=== PATIENT | female | born 1950 | race Caucasian/White ===

== ENCOUNTER 2019-04-29 08:15 | Outpatient (CLI) | payer MEDICARE, OTHER, SELFPAY ==
--- NOTE | ~2019-04-29 | MM_ITS ---
EXAMINATION: MM screening [facility] BI w adam HISTORY: Screening mammogram TECHNIQUE: Craniocaudal and mediolateral oblique 3-D tomosynthesis images were obtained and synthetic 2-D images were generated. CAD analysis was submitted and interpreted. COMPARISON: 04/16/2018, 04/11/2017, 04/06/2016 BREAST PARENCHYMAL COMPOSITION: The breasts are heterogeneously dense, which may obscure small masses . FINDINGS: There is no evidence of suspicious mass, calcification, or architectural distortion to sugg est malignancy in either breast. There has been no suspicious interval change. IMPRESSION: 1. No mammographic evidence of malignancy. 2. Recommend routine screening mammography in one year. BI-RADS Category 1: Negative Reviewed, dictated and finalized at location A.
== END 2019-04-29 08:16 | disposition home or self-care (01) ==
LOC: ANHIMG 08:17
PROVIDERS: PCP Nurse Practitioner Family; Visit Provider Nurse Practitioner Family
DX: Z12.31 Encounter for screening mammogram for malignant neoplasm of breast (principal)
CPT/HCPCS: 77063; 77067

== ENCOUNTER 2020-07-07 13:33 | Outpatient (CLI) | payer MEDICARE, OTHER, SELFPAY ==
--- NOTE | ~2020-07-07 | MM_ITS ---
EXAMINATION: MM screening [facility] BI w adam HISTORY: Screening TECHNIQUE: Craniocaudal and mediolateral oblique 3-D tomosynthesis images were obtained and synthetic 2-D images were generated. CAD analysis was submitted and interpreted. COMPARISON: Comparison to multiple prior studies sequentially, with oldest reviewed study dated 04/06. BREAST PARENCHYMAL COMPOSITION: The breasts are heterogenously dense, which may obscure small masses. FINDINGS: There is no evidence of suspicious mass, calcification, or architectural distortion to sugg est malignancy in either breast. There has been no suspicious interval change. IMPRESSION: 1. No mammographic evidence of malignancy. 2. Recommend routine screening mammography in one year. BI-RADS Category 1: Negative Reviewed, dictated and finalized at location A.
--- NOTE | ~2020-07-07 | DEXA_ITS ---
Bone Density Report Name: Lorrie Eubanks Age: 69 Sex: Female Ethnicity: White Date of : 1950 Indication: postmenopausal osteoporosis; Referring Provider: Juliette, Angela Scott Study: Bone densitometry was performed. Exam Date: July 07, 2020 Accession number: [id number] Bone Density: Region BMD T-score Z-score Classification AP Spine (L1-L4) 0.648 -3.6 -1.7 Osteoporosis Femoral Neck (Left) 0.502 -3.1 -1.5 Osteoporosis Total Hip (Left) 0.608 -2.7 -1.4 Osteoporosis Total Hip Bilateral Avg 0.598 -2.8 -1.5 Osteoporosis Femoral Neck (Right) 0.511 -3.0 -1.4 Osteoporosis Total Hip (Right) 0.587 -2.9 -1.5 Osteoporosis World Health Organization criteria for BMD impression classify patients as: Normal (T-score at or above -1.0), Osteopenia (T-score between -1.0 and -2.5), or Osteoporosis (T-score at or below -2.5). 10-year Fracture Risk: FRAX not reported because: Some T-score for Spine Total or Hip Total or Femoral Neck at or below -2.5 Previous Exams: Region Exam Age BMD T-score BMD Change BMD Change Date g/cm2 vs Baseline vs Previous AP Spine(L1-L4) 07/07/2020 69 0.648 -3.6 -0.483(-42.7%) -0.086(-11.7%) 04/06/2016 65 0.733 -2.9 -0.398(-35.2%) -0.299(-29.0%) 12/01/2005 54 1.033 -0.1 -0.098(-8.7%)* -0.102(-9.0%)* 10/31/2003 52 1.135 0.8 0.003(0.3%) 0.003(0.3%) 10/29/2001 50 1.131 0.8 Total Hip(Left) 07/07/2020 69 0.608 -2.7 -0.237(-28.1%) -0.064(-9.5%)* 04/06/2016 65 0.672 -2.2 -0.173(-20.5%) -0.135(-16.8%) 12/01/2005 54 0.807 -1.1 -0.038(-4.5%)* -0.050(-5.9%)* 10/31/2003 52 0.858 -0.7 0.013(1.5%) 0.013(1.5%) 10/29/2001 50 0.845 -0.8 Total Hip(Right) 07/07/2020 69 0.587 -2.9 -0.310(-34.6%) -0.070(-10.6%) 04/06/2016 65 0.657 -2.3 -0.241(-26.8%) -0.187(-22.1%) 12/01/2005 54 0.844 -0.8 -0.054(-6.0%)* -0.041(-4.6%)* 10/31/2003 52 0.885 -0.5 -0.013(-1.5%) -0.013(-1.5%) 10/29/2001 50 0.898 -0.4 *Denotes significance at 95% confidence level, LSC for AP Spine = 0.022 g/cm2, LSC for Total Hip = 0.027 g/cm2 Clinical Information Provided by Patient: Patient maximum height was 61 Menopause Age: 53 Onset of menses at age 15 Number of children 1 Impression: The patient has osteoporosis, based on the Total Spine T-score. The BMD for the AP Spine(L1-L4) decreased, changing by -11.7% since the last DXA exam. The BMD for the Total Hip(Left) decreased, changing by -9.5%
== END 2020-07-07 13:34 | disposition home or self-care (01) ==
PROVIDERS: PCP Nurse Practitioner Family; Visit Provider Nurse Practitioner Family
DX: Z12.31 Encounter for screening mammogram for malignant neoplasm of breast (principal); Z78.0 Asymptomatic menopausal state; M81.0 Age-related osteoporosis without current pathological fracture
CPT/HCPCS: 77063; 77067; 77080

== ENCOUNTER 2020-10-19 17:29 | Observation (INO) | payer MEDICARE, OTHER, SELFPAY ==
--- NOTE | ~2020-10-19 | XR_ITS ---
EXAMINATION: XR chest 2V DATE: 10/19/2020 18:58 INDICATION: Weakness. Frequent falls. TECHNIQUE: Frontal and lateral views of the chest were obtained. COMPARISON: Chest 2 views 01/10/2016, CT abdomen and pelvis 10/26/18 FINDINGS: There is mild scarring at the lung apices. No pleural effusion or pneumothorax. The heart s ize is normal. IMPRESSION: 1. Stable mild scarring at the lung apices. Reviewed, dictated and finalized at location A.
--- NOTE | ~2020-10-19 | CT_ITS ---
EXAMINATION: CT brain wo con DATE: 10/19/2020 21:39 INDICATION: Dizziness. Weakness. TECHNIQUE: Computed tomography (CT) of the head was performed without intravenous contrast. The mA wa s adjusted according to patient size. Iterative reconstruction technique was employed. The dose-lengt h product was 605.33 mGy-cm. COMPARISON: Head CT 10/28/2011 FINDINGS: There is no intracranial hemorrhage, acute infarction, or abnormal intracranial mass lesion . There are scattered areas of low attenuation in the cerebral white matter, which is within normal l imits for the patient's age. The ventricles are normal in size. There are likely changes of ocular le ns replacement surgeries. There is mild mucosal thickening in the ethmoid sinuses. The mastoid air ce lls are normal. IMPRESSION: 1. Normal aging brain. Reviewed, dictated and finalized at location A. IMPRESSION: 1. Normal aging brain.
[2020-10-19 17:33] VITALS: BP 143/77; PULSE 56; RESP 20; TEMP 36.9; O2SAT 100
--- NOTE | 2020-10-19 17:37 | ECG_ITS ---
Measurements Intervals Gibson Rate: 53 P: 63 NM: 161 QRS: -5 QRSD: 90 T: -20 QT: 440 QTc: 415 Interpretive Statements SINUS BRADYCARDIA INCOMPLETE RIGHT BUNDLE BRANCH BLOCK BORDERLINE R WAVE PROGRESSION, ANTERIOR LEADS CONSIDER INFERIOR INFARCT, AGE INDETERMINATE BORDERLINE ST-T WAVE ABNORMALITY- ANTEROLAT/INF LEADS BASELINE ARTIFACT- I, II, III, AVR, AVL, AVF, V1-V6 BORDERLINE ECG Electronically Signed On 10-20-2020 12:45:19 CDT by Arjun Nunez D.O.
[2020-10-19 18:10] LABS: Basophils Absolute Auto 0.1 K/mm3 (0.0-0.1); Eosinophils Absolute Auto 0.1 K/mm3 (0-0.3); Eosinophils Percent Auto 0.9 % (0-4.4); Hematocrit 38.9 % (37.0-47.0); Hemoglobin 12.6 g/dL (12.0-15.0); Immature Granulocyte Absolute 0.04 K/mm3 (0.00-0.031); Immature Granulocyte Percent A 0.5 % (0-0.5); Lymphocytes Percent Auto 44.4 % (18.3-44.2); Mean Corpuscular HGB Conc 32.4 g/dl (32-36); Mean Corpuscular Hemoglobin 29.8 pg (26-34); Mean Platelet Volume 9.8 fl (7.4-10.4); Monocytes Absolute Auto 0.6 K/mm3 (0.1-0.6); Neutrophils Absolute Auto 3.7 K/mm3 (1.3-6.7); Neutrophils Percent Auto 46.2 % (45.5-73.1); Platelet Count Result 301 k/mm3 (150-375); Red Blood Count 4.23 M/mm3 (4.2-5.4); Red Cell Distribution Width 13.2 % (11.5-14.5); White Blood Count 7.9 K/mm3 (4.5-10.0)
[2020-10-19 18:17] LABS: Alanine Aminotransferase 25 U/L (4-35); Albumin Level 4.1 g/dL (3.5-5.1); Alkaline Phosphatase 77 U/L (38-126); Anion Gap 4 mmol/L (8-16); Aspartate Amino Transferase 38 U/L (14-36); Bilirubin,Total 0.6 mg/dL (0.2-1.3); Blood Urea Nitrogen 15 mg/dL (7-17); Calcium 9.2 mg/dL (8.4-10.2); Carbon Dioxide 34 mmol/L (22-30); Chloride 102 mmol/L (98-107); Estimated CRCL calculation 38 ml/min; Estimated Glomerular Filt Rate > 60; Glucose 118 mg/dL (65-110); Potassium 3.2 mmol/L (3.4-5.0); Sodium 140 mmol/L (137-145)
--- NOTE | 2020-10-19 21:24 | ED.GENADULT ---
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 states that he found her on the floor today try to get her up to walk but patient was not able to due to her weakness. Patient denies any headache, dizziness, speech or visual disturbance, focal weakness or numbness, chest pain, shortness of breath abdominal pain, nausea, vomiting, diarrhea, fever, chills or urinary symptoms. Patient states that she is seen Dr. Watt in the past due to her tremors and possible Parkinson's. Related Data Home Medications Medication Instructions Recorded Confirmed aspirin [Aspirin Low Dose] 81 mg PO DAILY 12/24/18 12/24/18 buspirone 5 mg PO DAILY 12/24/18 12/24/18 cyanocobalamin (vitamin B-12) 10,000 mcg 12/24/18 [Vitamin B-12] lorazepam [Ativan] 0.5 mg PO DAILY PRN 12/24/18 12/24/18 naltrexone 4.5 mg PO DAILY 12/24/18 12/24/18 thyroid (pork) [Nature-Throid] 1,000 mg PO DAILY 12/24/18 12/24/18 alendronate mg PO 10/19/20 propranolol 10/19/20 Allergies Allergy/AdvReac Type Severity Reaction Status Date / Time cefdinir Allergy Severe gastric Verified 02/29/16 10:23 upset ticagrelor Allergy Severe ABD Verified 02/29/16 10:23 CRAMPING PAIN N/V Apjukhm-Ngn-Trv Reductase Allergy Intermediate Unknown Verified 10/19/20 21:28 Inhibitor codeine AdvReac Mild N/V Verified 02/29/16 10:23 paroxetine AdvReac Mild PASSED OUT Verified 02/29/16 10:23 STATINS Allergy Intermediate muscle Uncoded 12/26/18 10:32 weakness Review of Systems Review of Systems: All systems reviewed & are unremarkable except as noted in HPI and below Constitutional: Constitutional: Denies body ache(s), Denies chills, Denies excessive sweating, Denies fever(s), Denies headache(s), Denies lethargy and Denies weight loss Eyes: Eyes: Denies blurry vision, Denies change in vision and Denies loss of vision ENT: Denies dizziness, Denies ear discharge, Denies headache(s), Denies lip swelling, Denies epistaxis, Denies nasal congestion, Denies neck pain, Denies throat swelling and Denies tongue swelling Cardiovascular: Cardiovascular: Denies chest pain, Denies chest pain at rest, Denies chest pain with activity, Denies diaphoresis, Denies rapid heart rate, Denies edema, Denies irregular heart rhythm, Denies lightheadedness, Denies palpitations, Denies dyspnea and Denies dyspnea on exertion Respiratory: Respiratory: Denies chest congestion, Denies cough, Denies hemoptysis, Denies dyspnea and Denies dyspnea on exertion Gastrointestinal: Gastrointestinal: Denies abdominal pain, Denies melena, Denies hematochezia, Denies diarrhea, Denies nausea, Denies vomiting and Denies hematemesis Musculoskeletal: Musculoskeletal: Denies abnormal gait, Denies deformity, Denies joint swelling, Denies limited range of motion, Denies neck pain and Denies numbness Neurologic: Denies Abnormal speech present, Denies abnormal gait, Denies confusion, Denies dizziness, Denies headache(s), Denies focal weakness, Denies loss of vision, Denies numbness, Denies Other visual disturbances, Denies Sensory deficit (Neuro) and Denies weakness Psychiatric: Psychiatric: Denies confusion, Denies depression, Denies auditory hallucinations, Denies homicidal ideation and Denies suicidal ideation Endocrine: Endocrine: Denies cold intolerance, Denies excessive sweating, Denies fatigue, Denies heat intolerance and Denies palpitations Hematologic/Lymphatic: Hematologic/Lymphatic: Denies easy bleeding and Denies easy bruising Allergic/Immunologic:
[2020-10-19] MEDS: Acetaminophen/HYDROcodone ELIXIR (*CRX) 7.5 MG/15 ML UDC 5 MG PO (22:20)
[2020-10-19 22:22] LABS: Creatine Kinase 93 U/L (30-135)
[2020-10-19 22:23] LABS: Lactic Acid Reflex 0.7 mmol/L (0.7-2.1)
[2020-10-19] MEDS: LACTATED RINGERS 1,000 ML 999 ML IV CONT (22:33)
[2020-10-19 22:35] LABS: Troponin I < 0.012 ng/mL (0.000-0.034)
[2020-10-19 23:26] LABS: Add Urine Microscopic? YES; Appearance Urine Clear (Clear); Bacteria Urine Trace /hpf; Bilirubin Urine Negative (Negative); Blood Urine 1+ (Negative); Color Urine Yellow (Yellow); Glucose Urine UA Negative (Negative); Ketones Urine Trace mg/dL (Negative); Leukocyte Esterase Ur Negative LEU/UL (Negative); Mucus Urine Rare /lpf; Nitrate Urine Negative (Negative); Protein Urine Negative (Negative); RBC Urine 21-50 /hpf (0-2); Specific Grav Ur 1.017 (1.001-1.035); Squamous Epithelial Cell Urine Rare /hpf (Few); Urobilinogen Urine Negative mg/dL (<2.0); WBC Urine 0-3 /hpf
[2020-10-19] MEDS: POTASSIUM CHLORIDE 20 MEQ PACKET (FOR LIQUID) 40 MEQ PO (23:29)
[2020-10-19 23:47] VITALS: BP 142/68; PULSE 56; RESP 14; O2SAT 97
[2020-10-20 01:46] VITALS: BP 143/69; PULSE 53; RESP 16; TEMP 36.6; O2SAT 100; BMI 16.7
--- NOTE | 2020-10-20 01:47 | ADMGEN ---
This patient, Lorrie Eubanks, was admitted to Medical Room 342-01. Patient/family oriented to hospital policies and general routines including ID bracelet, bed and alarms, visiting hours, pain management, procedures, bathroom and other care routines, personal items, smoking policy, room service/diet, and visiting hours. Information on how to activate the Rapid Response Team has been discussed. Patient/Family are encouraged to report perceived risks to care and to ask questions if they do not understand what they are told or what they should do.
[2020-10-20 01:55] VITALS: PULSE 53; RESP 16; O2SAT 100
[2020-10-20] MEDS: LACTATED RINGERS 1,000 ML 125 ML IV CONT (02:59)
[2020-10-20 04:31] VITALS: BP 123/59; PULSE 50; RESP 16; TEMP 36.4; O2SAT 99
--- NOTE | 2020-10-20 05:01 | PM.IMHP ---
H&P: HPI History of Present Illness Date/Time: 10/20/20 05:01 Chief Complaint: Weakness, multiple falls Narrative: 69-year-old female with past medical history of anxiety, chronic pain syndrome, coronary artery disease, and hypothyroidism who presented to the ER from home via private vehicle due to weakness and multiple falls. The patient has had progressive weakness for the last several months. However over the last 3 days her weakness has progressed significantly. She denies any numbness or tingling of her extremities. Has been found the patient on the floor when he came home today. Over the last 2 weeks the patient has had multiple falls with 2 falls today. The patient reports that over the last 4 years she has had a 25 pounds weight loss. She thought she was actually starting to gain weight back as she does have a good appetite. However, her weight today was a few lb lower than her weight couple of weeks ago as outpatient. She denies any nausea vomiting or diarrhea. She has not had any cough or congestion or recent ill symptoms. She does not walk with a walker or cane.but does have chronic footdrop on the right associated with prior back surgery, prior right foot 3 and what sounds like sciatica. 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 She is on chronic naltrexone at home. She denies any increased pain from her baseline. She has not had any nausea vomiting or diarrhea. She has not had any cough or congestion. Dr. Harshad Watt in the past due to her history of footdrop and tremors of her right upper extremity. She denies any orthopnea, paroxysmal nocturnal dyspnea or dyspnea on exertion. She sees a churner through [facility] Dr. Betancourt. Review of Systems Review of Systems: 12 systems were reviewed with pertinent positives and negatives per HPI. Except as documented in the HPI, all other systems were reviewed and are negative. [facility] Past Medical History Medical History (Updated 10/20/20 @ 05:29 by Angeles Baird DO) Anxiety AVM (arteriovenous malformation) of colon B12 deficiency CAD (coronary artery disease) Chronic pain syndrome Hx of adenomatous colonic polyps Hypothyroid TSH 10/19/2020 within normal limits Osteoporosis Surgical History Surgical History (Updated 10/20/20 @ 05:11 by Angeles Baird DO) H/O cardiac catheterization History of colonoscopy with polypectomy History of heart artery stent (~2013) X2 History of repair of right rotator cuff (~2014) History of toe surgery Hx of appendectomy Hx of right inguinal hernia repair Previous back surgery (~2015) Status post cataract extraction of both eyes with insertion of intraocular lens Family History Family History Father Family history of lung cancer Hypertension Mother Over 80 years old Hypertension Social History Social History (Updated 10/20/20 @ 05:10 by Angeles Baird DO) Social History: He lives in [place] with her of 26 years. 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 She has 1 son who is healthy. She is a lifelong nonsmoker and does not drink alcohol or use illicit substances. Code status: Full code Primary care provider: Angela Segovia NP Surrogate decision maker: Smoking status: Never smoker Second hand tobacco smoke exposure: Yes Alcohol intake: never Substance use: never Substance use type: does not use Spiritual care concerns: No Meds Home Medications and Allergies Home Medications Medication Instructions Recorded Confirmed Type aspirin [Aspirin Low Dose] 81 mg PO DAILY 12/24/18 10/20/20 History buspirone 5 mg PO BID 12/24/18 10/20/20 History cyanocobalamin (vitamin B-12) 10,000 mcg PO DAILY 12/24/18 10/20/20 History [Vitamin B-12] lorazepam [Ativan] 0.5 mg PO BID PRN 12/24/18 10/20/20 History n
[2020-10-20 06:25] LABS: Hematocrit 38.3 % (37.0-47.0); Hemoglobin 12.1 g/dL (12.0-15.0); Mean Corpuscular HGB Conc 31.6 g/dl (32-36); Mean Corpuscular Hemoglobin 29.5 pg (26-34); Mean Corpuscular Volume 93.4 fl (80-100); Mean Platelet Volume 10.1 fl (7.4-10.4); Platelet Count Result 257 k/mm3 (150-375); Red Cell Distribution Width 13.1 % (11.5-14.5); White Blood Count 8.2 K/mm3 (4.5-10.0)
[2020-10-20 06:39] LABS: Anion Gap 6 mmol/L (8-16); Blood Urea Nitrogen 12 mg/dL (7-17); Carbon Dioxide 27 mmol/L (22-30); Chloride 102 mmol/L (98-107); Estimated CRCL calculation 43 ml/min; Estimated Glomerular Filt Rate > 60; Glucose 89 mg/dL (65-110); Magnesium 2.1 mg/dL (1.6-2.3); Potassium 3.4 mmol/L (3.4-5.0); Sodium 135 mmol/L (137-145)
[2020-10-20] MEDS: ASPIRIN 81 MG ENTERIC TABLET PO (08:19)
[2020-10-20] MEDS: busPIRone HCL 5 MG TABLET PO ×2 (08:19→16:55)
[2020-10-20] MEDS: POTASSIUM CHLORIDE 20 MEQ TABLET 40 MEQ PO (08:19)
[2020-10-20] MEDS: CYANOCOBALAMIN 1,000 MCG TABLET 1000 MCG PO (08:19)
[2020-10-20] MEDS: LORazepam (*CRX) 0.5 MG TABLET PO (08:22)
--- NOTE | 2020-10-20 11:05 | WPDNEURCNPN ---
Assessment and Plan Additional Plan 1. Tremors most likely Parkinson's disease with action tremor as well 2. Generalized deconditioning with right-sided weakness to be evaluated further 3. Readjust the medications Consult date: 10/20/20 Time Seen: 10:45 HPI: Lorrie Eubanks is a 69 year old female admitted to the hospital for the complaints of recurrent falls along with the generalized weakness in addition to the ongoing history of 1. Anxiety 2. Chronic pain syndrome 3. Coronary artery disease 4. Hypothyroidism and 5. Parkinson's disease patient has had multiple falls over the last couple of weeks in addition to the history of significant weight lost reportedly she does not walk with a walker or cane but has a chronic footdrop on the right side with a history of previous back surgery right foot surgery and also tremors on the right side addition she gave the history of rotator cuff repair in 2014 resulting in the brachial plexus injury she has seen us in the past for the complaints of foot drop. She does have ongoing history O of B12 deficiency chronic pain syndrome hypothyroidism and osteoporosis has also undergone cardiac catheterization and stenting in 2013 in addition to right rotator cuff repair in 2015 back surgery in 2015 and obviously cataract extraction with insertion of the intra ocular lenses . He is not a smoker or drinker medication at the time of admission included BuSpar 5 mg twice a day lorazepam 0.5 mg b.i.d. p.r.n. propanolol 40 mg daily and levothyroxine 0.25 mg daily Review of Systems Review of Systems: All systems reviewed & are unremarkable except as noted in HPI and below PMFSH Past Medical History Medical History Anxiety AVM (arteriovenous malformation) of colon B12 deficiency CAD (coronary artery disease) Chronic pain syndrome Hx of adenomatous colonic polyps Hypothyroid TSH 10/19/2020 within normal limits Osteoporosis Surgical History Surgical History H/O cardiac catheterization History of colonoscopy with polypectomy History of heart artery stent (~2013) X2 History of repair of right rotator cuff (~2014) History of toe surgery Hx of appendectomy Hx of right inguinal hernia repair Previous back surgery (~2015) Status post cataract extraction of both eyes with insertion of intraocular lens Family History Family History Father Family history of lung cancer Hypertension Mother Over 80 years old Hypertension Social History Social History Social History: He lives in [place] with her of 26 years. 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 She has 1 son who is healthy. She is a lifelong nonsmoker and does not drink alcohol or use illicit substances. Code status: Full code Primary care provider: Angela Segovia [employer] Surrogate decision maker: Smoking status: Never smoker Second hand tobacco smoke exposure: Yes Alcohol intake: never Substance use: never Substance use type: does not use Spiritual care concerns: No Meds Home Medications and Allergies Home Medications Medication Instructions Recorded Confirmed Type aspirin [Aspirin Low Dose] 81 mg PO DAILY 12/24/18 10/20/20 History buspirone 5 mg PO BID 12/24/18 10/20/20 History cyanocobalamin (vitamin B-12) 1,000 mcg PO DAILY 12/24/18 10/20/20 History [Vitamin B-12] lorazepam [Ativan] 0.5 mg PO BID PRN 12/24/18 10/20/20 History naltrexone 4.5 mg PO DAILY 12/24/18 10/20/20 History alendronate 70 mg PO WEEKLY 10/19/20 10/20/20 History propranolol 40 mg PO DAILY 10/19/20 10/20/20 History levothyroxine [Synthroid] 25 mcg PO DAILY 10/20/20 10/20/20 History lubiprostone [Amitiza] 8 mcg PO BID PRN 10/20/20 10/20/20 History Allergies Allergy/AdvReac Type Severity Reaction Status Date / Ti
[2020-10-20 11:29] VITALS: BMI 16.7
[2020-10-20 14:00] VITALS: BP 110/55; PULSE 65; RESP 16; TEMP 36.4; O2SAT 100
--- NOTE | 2020-10-20 15:07 | PHAR ---
HOME MED VERIFIED NALTREXONE 4.5MG CAPSULE TAKE 1 DAILY
--- NOTE | 2020-10-20 16:57 | PM.IMPN ---
Progress Note: A&P Assessment and Plan (1) Generalized weakness: Code(s): R53.1 - Weakness Status: Acute (2) Unsteady gait: Code(s): R26.81 - Unsteadiness on feet Status: Acute (3) Acute hypokalemia: Code(s): E87.6 - Hypokalemia Status: Acute (4) Sinus bradycardia: Code(s): R00.1 - Bradycardia, unspecified Status: Acute Additional Plan The patient is having progressive generalized weakness. Underlying neurologic disorder cannot be ruled out. Neurology has been consulted. 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 She has chronic footdrop on the right following surgical procedure and what sounds like sciatica and prior back surgery. The patient's neurologic responses are somewhat slowed and she is generally poor coordination. Await further recommendations from Neurology regarding evaluation. PT and OT have been consulted. Patient is on fall precautions. She has bradycardia noted on exam and is on propranolol. Will hold propranolol as this may be part of the patient's generalized weakness. The patient received oral potassium supplementation in the ER. Will repeat BMP and check a magnesium level in a.m.. Will stop supplemental fluids as the patient has pedal edema bilaterally. 10/20/20 16:57 patient is 71-year-old female presented with complaint of generalized weakness, fatigue and tremor patient is seen by pain management and been prescribed naltrexone, CT scan of the head did not show any acute injury, patient is participating physical therapy, patient was seen by neurologist and diagnosed patient with Parkinson's and started the patient on carbidopa levodopa 25/100, appreciate neurology input will continue to monitor will continue PT OT, patient will benefit going into acute rehab Patient has been admitted as observation status. Subjective Date/time seen: 10/20/20 16:57 patient is 71-year-old female presented with complaint of generalized weakness, fatigue and tremor patient is seen by pain management and been prescribed naltrexone, CT scan of the head did not show any acute injury, patient is participating physical therapy, patient was seen by neurologist and diagnosed patient with Parkinson's and started the patient on carbidopa levodopa 25/100, appreciate neurology input will continue to monitor will continue PT OT, patient will benefit going into acute rehab Review of Systems Review of Systems: All systems reviewed & are unremarkable except as noted in HPI and below Exam Narrative: patient appears under nourished Patient is comfortable, NAD HEENT: eyes are clear and none icteric LUNGS: normal respiratory effort ABD: not distended Lower extremities: no edema SKIN: nonjaundiced Neuro: grossly intact normal speech patient does have tremors. Objective Data Vital Signs Vital Signs: Vital Signs - 24 hr 10/19/20 17:33 10/19/20 23:47 10/20/20 01:46 Temperature 98.4 F 98 F Pulse Rate 56 L 56 L 53 L Respiratory Rate 20 14 16 Blood Pressure 143/77 H 142/68 H 143/69 H Pulse Oximetry 100 97 100 10/20/20 01:55 10/20/20 04:31 10/20/20 14:00 Temperature 97.6 F 97.6 F Pulse Rate 53 L 50 L 65 Respiratory Rate 16 16 16 Blood Pressure 123/59 L 110/55 L Pulse Oximetry 100 99 100 Intake/Output Intake/Output: Intake & Output 10/17/20 10/18/20 10/19/20 10/20/20 23:59 23:59 23:59 23:59 Intake Total 1000 410 Output Total 775 Balance 1000 -365 Meds/Results Medications: Active Medications Generic Name Dose Route Start Last Admin Trade Name Freq PRN Reason Stop Dose Admin Aspirin 81 mg 10/20/20 09:00 10/20/20 08:19 Aspirin 81 Mg Enteric Tablet PO 81 mg DAILY RICHARD Administration Buspirone HCl 5 mg 10/20/20 09:00 10/20/20 16:55 Buspirone Hcl 5 Mg Tablet PO 5 mg BID RICHARD Administration Carbidopa/Levodopa 1 tabl
[2020-10-20 20:29] VITALS: BP 128/52; PULSE 59; RESP 16; TEMP 36.4; O2SAT 97
[2020-10-20] MEDS: CARBIDOPA/LEVODOPA 25/100 MG TABLET 1 TABLET PO (20:31)
[2020-10-21 05:38] VITALS: BP 118/80; PULSE 104; RESP 16; TEMP 36.3; O2SAT 97
[2020-10-21 06:30] LABS: Hematocrit 37.4 % (37.0-47.0); Hemoglobin 11.9 g/dL (12.0-15.0); Mean Corpuscular HGB Conc 31.8 g/dl (32-36); Mean Corpuscular Hemoglobin 29.8 pg (26-34); Mean Corpuscular Volume 93.5 fl (80-100); Mean Platelet Volume 10.1 fl (7.4-10.4); Platelet Count Result 262 k/mm3 (150-375); Red Cell Distribution Width 13.2 % (11.5-14.5); White Blood Count 7.1 K/mm3 (4.5-10.0)
[2020-10-21 06:55] LABS: Anion Gap 9 mmol/L (8-16); Blood Urea Nitrogen 16 mg/dL (7-17); Calcium 9.3 mg/dL (8.4-10.2); Carbon Dioxide 29 mmol/L (22-30); Chloride 100 mmol/L (98-107); Estimated CRCL calculation 43 ml/min; Estimated Glomerular Filt Rate > 60; Glucose 93 mg/dL (65-110); Potassium 3.4 mmol/L (3.4-5.0); Sodium 138 mmol/L (137-145)
[2020-10-21] MEDS: CYANOCOBALAMIN 1,000 MCG TABLET 1000 MCG PO (08:46)
[2020-10-21] MEDS: ASPIRIN 81 MG ENTERIC TABLET PO (08:46)
[2020-10-21] MEDS: busPIRone HCL 5 MG TABLET PO ×2 (08:46→16:34)
[2020-10-21] MEDS: LORazepam (*CRX) 0.5 MG TABLET PO ×2 (08:46→21:07)
[2020-10-21] MEDS: CARBIDOPA/LEVODOPA 25/100 MG TABLET 1 TABLET PO ×3 (08:46→21:07)
[2020-10-21] MEDS: POTASSIUM CHLORIDE 20 MEQ TABLET 40 MEQ PO (10:04)
[2020-10-21 10:28] VITALS: PULSE 63
[2020-10-21] MEDS: PROPRANOLOL HCL 40 MG TABLET PO ×2 (10:28→21:06)
[2020-10-21 14:00] VITALS: BP 93/51; PULSE 81; RESP 18; TEMP 35.8; O2SAT 64
--- NOTE | 2020-10-21 16:29 | WPDNEUROPN ---
Progress Note: A&P Additional Plan patient was advised that she has underlying Parkinson disease she is already showing the signs of improvement on carbidopa levodopa treatment which was increased today to 3 times a day will re-evaluate her. She has a good likely candidate to have the rehab Review of Systems Review of Systems: All systems reviewed & are unremarkable except as noted in HPI and below Exam Narrative: was awake alert cooperative in no obvious acute distress head was normocephalic ear nose throat examination was normal neck was supple heart was regular lungs were clear abdomen is soft neurologically she was awake alert able to follow all the verbal commands appropriately sitting in the chair following the instruction had no evidence of resting tremors had mild tremors on [id number] heart was regular lungs were clear and abdomen was soft neuro examination as mentioned above Objective Data Vital Signs Vital Signs: Vital Signs - 24 hr 10/20/20 20:29 10/21/20 05:38 10/21/20 10:28 Temperature 36.4 C L 36.3 C L Pulse Rate 59 L 104 H 63 Respiratory Rate 16 16 Blood Pressure 128/52 L 118/80 Pulse Oximetry 97 97 10/21/20 14:00 Temperature 35.8 C L Pulse Rate 81 Respiratory Rate 18 Blood Pressure 93/51 L Pulse Oximetry 64 L Intake/Output Intake/Output: Intake & Output 10/18/20 10/19/20 10/20/20 10/21/20 23:59 23:59 23:59 23:59 Intake Total 1000 410 340 Output Total 825 500 Balance 1000 -415 -160 Meds/Results Medications: Active Medications Generic Name Dose Route Start Last Admin Trade Name Minh PRN Reason Stop Dose Admin Aspirin 81 mg 10/20/20 09:00 10/21/20 08:46 Aspirin 81 Mg Enteric Tablet PO 81 mg DAILY RICHARD Administration Buspirone HCl 5 mg 10/20/20 09:00 10/21/20 08:46 Buspirone Hcl 5 Mg Tablet PO 5 mg BID RICHARD Administration Carbidopa/Levodopa 1 tablet 10/21/20 14:00 10/21/20 13:45 Carbidopa/Levodopa 25/100 Mg Tablet PO 1 tablet Q8HR RICHARD Administration Cyanocobalamin 1,000 mcg 10/20/20 09:00 10/21/20 08:46 Cyanocobalamin 1,000 Mcg Tablet PO 1,000 mcg DAILY RICHARD Administration Lorazepam 0.5 mg 10/20/20 05:07 10/21/20 08:46 Lorazepam (*Crx) 0.5 Mg Tablet PO 0.5 mg BID PRN Administration Anxiety Lubiprostone 8 mcg 10/20/20 05:07 Lubiprostone 8 Mcg Capsule PO BID PRN Constipation Propranolol HCl 40 mg 10/21/20 09:00 10/21/20 10:28 Propranolol Hcl 40 Mg Tablet PO 40 mg Q12HR RICHARD Administration Radiology Results: ITS Impressions Chest X-Ray 10/19/20 18:58 IMPRESSION: 1. Stable mild scarring at the lung apices. Head CT 10/19/20 21:41 IMPRESSION: 1. Normal aging brain. Labs Labs: Laboratory Results - last 24 hr 10/21/20 10/21/20 05:41 05:41 WBC 7.1 RBC 4.00 L Hgb 11.9 L Hct 37.4 MCV 93.5 MCH 29.8 MCHC 31.8 L RDW 13.2 Plt Count 262 MPV 10.1 Sodium 138 Potassium 3.4 Chloride 100 Carbon Dioxide 29 Anion Gap 9 BUN 16 Creatinine 0.70 Estim Creat Clear Calc 43 Estimated GFR > 60 Glucose 93 Calcium 9.3 Quality VTE Prophylaxis VTE prophylaxis: mechanical ordered (SCDs)
[2020-10-21 17:00] LABS: EDCOVIDSCREEN Negative (Negative)
--- NOTE | 2020-10-21 18:10 | PM.IMPN ---
Progress Note: A&P Assessment and Plan (1) Generalized weakness: Code(s): R53.1 - Weakness Status: Acute (2) Unsteady gait: Code(s): R26.81 - Unsteadiness on feet Status: Acute (3) Acute hypokalemia: Code(s): E87.6 - Hypokalemia Status: Acute (4) Sinus bradycardia: Code(s): R00.1 - Bradycardia, unspecified Status: Acute Additional Plan The patient is having progressive generalized weakness. Underlying neurologic disorder cannot be ruled out. Neurology has been consulted. 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 She has chronic footdrop on the right following surgical procedure and what sounds like sciatica and prior back surgery. The patient's neurologic responses are somewhat slowed and she is generally poor coordination. Await further recommendations from Neurology regarding evaluation. PT and OT have been consulted. Patient is on fall precautions. She has bradycardia noted on exam and is on propranolol. Will hold propranolol as this may be part of the patient's generalized weakness. The patient received oral potassium supplementation in the ER. Will repeat BMP and check a magnesium level in a.m.. Will stop supplemental fluids as the patient has pedal edema bilaterally. 10/21/20 18:10 10/20 patient is 71-year-old female presented with complaint of generalized weakness, fatigue and tremor patient is seen by pain management and been prescribed naltrexone, CT scan of the head did not show any acute injury, patient is participating physical therapy, patient was seen by neurologist and diagnosed patient with Parkinson's and started the patient on carbidopa levodopa 25/100, appreciate neurology input will continue to monitor will continue PT OT, patient will benefit going into acute rehab 10/21 patient was seen by Neurology and diagnosed her with Parkinson's was started on carbidopa levodopa 25/100, BID, today patient was seen neurologist increase the medication to t.i.d., patient continued to participate in physical therapy, patient has been accepted for acute rehab and will discharge the patient tomorrow. Subjective Date/time seen: 10/21/20 18:10 10/20 patient is 71-year-old female presented with complaint of generalized weakness, fatigue and tremor patient is seen by pain management and been prescribed naltrexone, CT scan of the head did not show any acute injury, patient is participating physical therapy, patient was seen by neurologist and diagnosed patient with Parkinson's and started the patient on carbidopa levodopa 25/100, appreciate neurology input will continue to monitor will continue PT OT, patient will benefit going into acute rehab 10/21 patient was seen by Neurology and diagnosed her with Parkinson's was started on carbidopa levodopa 25/100, BID, today patient was seen neurologist increase the medication to t.i.d., patient continued to participate in physical therapy, patient has been accepted for acute rehab and will discharge the patient tomorrow. Review of Systems Review of Systems: All systems reviewed & are unremarkable except as noted in HPI and below Exam Narrative: patient appears under nourished Patient is comfortable, NAD HEENT: eyes are clear and none icteric LUNGS: normal respiratory effort ABD: not distended Lower extremities: no edema SKIN: nonjaundiced Neuro: grossly intact normal speech patient does have tremors. Objective Data Vital Signs Vital Signs: Vital Signs - 24 hr 10/20/20 20:29 10/21/20 05:38 10/21/20 10:28 Temperature 97.5 F L 97.4 F L Pulse Rate 59 L 104 H 63 Respiratory Rate 16 16 Blood Pressure 128/52 L 118/80 Pulse Oximetry 97 97 10/21/20 14:00 Temperature 96.5 F L Pulse Rate 81 Respiratory Rate 18 Blood Pressure 93/51 L Pulse Oximetry 64 L Intake/Output Intake/Output: Intake & Output 10/18
[2020-10-21 21:06] VITALS: PULSE 62
[2020-10-21 22:00] VITALS: BP 124/82; PULSE 58; RESP 16; TEMP 36.7; O2SAT 100
[2020-10-22] MEDS: CARBIDOPA/LEVODOPA 25/100 MG TABLET 1 TABLET PO (05:29)
[2020-10-22 05:32] VITALS: BP 128/67; PULSE 57; RESP 16; TEMP 37; O2SAT 99
[2020-10-22 06:08] LABS: Hemoglobin 12.3 g/dL (12.0-15.0); Mean Corpuscular HGB Conc 32.4 g/dl (32-36); Mean Corpuscular Hemoglobin 29.6 pg (26-34); Mean Corpuscular Volume 91.6 fl (80-100); Mean Platelet Volume 9.7 fl (7.4-10.4); Platelet Count Result 292 k/mm3 (150-375); Red Blood Count 4.15 M/mm3 (4.2-5.4); Red Cell Distribution Width 13.1 % (11.5-14.5)
[2020-10-22 06:53] LABS: Anion Gap 5 mmol/L (8-16); Blood Urea Nitrogen 16 mg/dL (7-17); Calcium 9.6 mg/dL (8.4-10.2); Carbon Dioxide 31 mmol/L (22-30); Chloride 102 mmol/L (98-107); Estimated CRCL calculation 43 ml/min; Estimated Glomerular Filt Rate > 60; Glucose 107 mg/dL (65-110); Potassium 3.7 mmol/L (3.4-5.0); Sodium 138 mmol/L (137-145)
[2020-10-22 08:00] VITALS: PULSE 54
[2020-10-22] MEDS: ASPIRIN 81 MG ENTERIC TABLET PO (08:00)
[2020-10-22] MEDS: busPIRone HCL 5 MG TABLET PO (08:00)
[2020-10-22] MEDS: PROPRANOLOL HCL 40 MG TABLET PO (08:00)
[2020-10-22] MEDS: CYANOCOBALAMIN 1,000 MCG TABLET 1000 MCG PO (08:00)
[2020-10-22] MEDS: LORazepam (*CRX) 0.5 MG TABLET PO (08:09)
--- NOTE | 2020-10-22 09:13 | PM.DS ---
DS: Admitting Diagnosis Admitting Diagnosis Chief Complaint: Weakness, multiple falls DS: Discharge Diagnosis Discharge Diagnosis (1) Generalized weakness: Code(s): R53.1 - Weakness Status: Acute (2) Unsteady gait: Code(s): R26.81 - Unsteadiness on feet Status: Acute (3) Acute hypokalemia: Code(s): E87.6 - Hypokalemia Status: Inactive (4) Sinus bradycardia: Code(s): R00.1 - Bradycardia, unspecified Status: Acute DS: Summary Hospital Course Reason for hospitalization: Chief Complaint: Weakness, multiple falls Narrative: 69-year-old female with past medical history of anxiety, chronic pain syndrome, coronary artery disease, and hypothyroidism who presented to the ER from home via private vehicle due to weakness and multiple falls. The patient has had progressive weakness for the last several months. However over the last 3 days her weakness has progressed significantly. She denies any numbness or tingling of her extremities. Has been found the patient on the floor when he came home today. Over the last 2 weeks the patient has had multiple falls with 2 falls today. The patient reports that over the last 4 years she has had a 25 pounds weight loss. She thought she was actually starting to gain weight back as she does have a good appetite. However, her weight today was a few lb lower than her weight couple of weeks ago as outpatient. She denies any nausea vomiting or diarrhea. She has not had any cough or congestion or recent ill symptoms. She does not walk with a walker or cane.but does have chronic footdrop on the right associated with prior back surgery, prior right foot 3 and what sounds like sciatica. 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 She is on chronic naltrexone at home. She denies any increased pain from her baseline. She has not had any nausea vomiting or diarrhea. She has not had any cough or congestion. Dr. Harshad Watt in the past due to her history of footdrop and tremors of her right upper extremity. She denies any orthopnea, paroxysmal nocturnal dyspnea or dyspnea on exertion. 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 Hospital Course: patient was discharged on 10/22/2020 The patient is having progressive generalized weakness. Underlying neurologic disorder cannot be ruled out. Neurology has been consulted. 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 She has chronic footdrop on the right following surgical procedure and what sounds like sciatica and prior back surgery. The patient's neurologic responses are somewhat slowed and she is generally poor coordination. Await further recommendations from Neurology regarding evaluation. PT and OT have been consulted. Patient is on fall precautions. She has bradycardia noted on exam and is on propranolol. Will hold propranolol as this may be part of the patient's generalized weakness. The patient received oral potassium supplementation in the ER. Will repeat BMP and check a magnesium level in a.m.. Will stop supplemental fluids as the patient has pedal edema bilaterally. 10/21/20 18:10 10/20 patient is 71-year-old female presented with complaint of generalized weakness, fatigue and tremor patient is seen by pain management and been prescribed naltrexone, CT scan of the head did not show any acute injury, patient is participating physical therapy, patient was seen by neurologist and diagnosed patient with Parkinson's and started the patient on carbidopa levodopa 25/100, appreciate neurology input will continue to monitor will continue PT OT, patient will benefit going into acute rehab 10/21 patient was seen by Neurology and diagnosed her with Parkinson's was started on carbidopa levodopa 25/100, BID, today patient was seen n
== END 2020-10-22 11:30 | disposition short-term general hospital (02) ==
LOC: ANHED 23:55 → ANH3MED 10-20 03:47
PROVIDERS: Emergency Medicine; Internal Medicine; Admitting Provider Internal Medicine; Emergency Provider Emergency Medicine; PCP Nurse Practitioner Family; Visit Provider Family Medicine
DX: R53.1 Weakness (principal); R26.81 Unsteadiness on feet; E87.6 Hypokalemia; R00.1 Bradycardia, unspecified; R29.6 Repeated falls; G20 Parkinson's disease; G25.2 Other specified forms of tremor; I25.10 Atherosclerotic heart disease of native coronary artery without angina pectoris; E03.9 Hypothyroidism, unspecified; M21.371 Foot drop, right foot; E53.8 Deficiency of other specified B group vitamins; G89.4 Chronic pain syndrome; Z95.5 Presence of coronary angioplasty implant and graft; Z79.82 Long term (current) use of aspirin; Z20.822 Contact with and (suspected) exposure to COVID-19
CPT/HCPCS: 36415; 70450; 71046; 80048; 80053; 81001; 82550; 83605; 83735; 84443; 84484; 85025; 85027; 87426; 93005; 96360; 97110; 97116; 97161; 97166; 97535; 99285; A9270; C9803; G0378; J7120

== ENCOUNTER 2020-12-03 11:00 | Outpatient (RCR) | payer MEDICARE, OTHER, SELFPAY ==
--- NOTE | 2020-11-05 10:11 | LSVTBIG ---
Addendum entered by HERMINIA Eisenberg/ALIRIO Lester 11/05/20 14:53: Addendum to initial note. Patient is scheduled to be seen by OT 1-2x/week for 4 weeks. Original Note: OCCUPATIONAL THERAPY INITIAL EVALUATION 11/05/20 Thank you for referring Lorrie Eubanks to [facility] It is recommended that the patient participate in LSVT BIG program, which involves participation in therapy 4 days/week, however due to the patient's limited availability and reliance on transportation she is only able to schedule 2 days/week. She will be seen 1 day/week with OT and 1 day/week with PT for 4 weeks.? Please review, sign, date and return this plan of care DORIS. I agree with and certify that the following plan of care is medically necessary. Referring Physician Date Referring Provider: Yanet De Leon, *LSVT BIG Evaluation Start: 11/05/20 09:01 Therapy Discipline Therapy Discipline Therapy Discipline Occupational Therapy Outpatient Past Medical History Past Medical History Source of Past Medical History Recalled from Previous Visit, Confirmed with Patient/Family Neurological History Hx Parkinson's Disease Yes: seen by Dr. Watt in past for tremors and poss parkinsons Cardiovascular History Hx Cardiac Catheterization Yes Hx Coronary Artery Disease Yes Hx Coronary Stent Yes: X2 Hx Hypertension Yes Hx Other Cardiac Disorders Yes: AVM Respiratory History Hx Respiratory Disorders No Significant History Gastrointestinal History Hx Appendectomy Yes Hx Hernia Yes: right inguinal hernia repair Genitourinary History Hx Genitourinary Disorders No Significant History Musculoskeletal History Hx Back Pain Yes Hx Orthopedic Surgery Yes: RIGHT ROTATOR CUFFX2, RIGHT TOE SURGERY X4 Hx Spinal Surgery Yes Hx Other Musculoskeletal Disorders Yes: chronic pain syndrome Hematological History Hx Hematological Disorders No Significant History Endocrine History Hx Hypothyroidism Yes HEENT History Hx Cataracts Yes: REMOVED Integumentary History Hx Skin Disorders No Significant History Reproductive History Hx Post Menopausal Yes Psychosocial History Hx Anxiety Yes Pain History Has Past Pain Affected Your Daily Life Yes: chronic pain syndrome History of Long-Term Prescription Pain Yes: on naltrexone now Medication Use (Opiates) Anesthesia History Hx Anesthesia Reactions No Significant History Other History Hx Other Medical Conditions Yes: vitamin b12 deficiency Evaluation Information Problem Diagnosis Parkinson's Disease Onset Unknown Subjective Information Patient started noticing Query Text:As Reported By Patient/ tremors in the
--- NOTE | 2020-11-05 11:48 | LSVTBIG ---
PHYSICAL THERAPY EVALUATION AND PLAN OF CARE Thank you for referring Lorrie Eubanks to [facility].? The patient is scheduled to be seen for therapy? 1-2x/week for 4 weeks. Please review, sign, date and return this plan of care DORIS. I agree with and certify that the following plan of care is medically necessary. Referring Physician Date Attending Provider: Yanet De Leon, DO Evaluation Source of Past Medical History Recalled from Previous Visit, Confirmed with Patient/Family Neurological History Hx Parkinson's Disease Yes: seen by dr perez in past for tremors and poss parkinsons Cardiovascular History Hx Cardiac Catheterization Yes Hx Coronary Artery Disease Yes Hx Coronary Stent Yes: X2 Hx Hypertension Yes Hx Other Cardiac Disorders Yes: AVM Respiratory History Hx Respiratory Disorders No Significant History Gastrointestinal History Hx Appendectomy Yes Hx Hernia Yes: right inguinal hernia repair Genitourinary History Hx Genitourinary Disorders No Significant History Musculoskeletal History Hx Back Pain Yes Hx Orthopedic Surgery Yes: RIGHT ROTATOR CUFFX2, RIGHT TOE SURGERY X4 Hx Spinal Surgery Yes Hx Other Musculoskeletal Disorders Yes: chronic pain syndrome Hematological History Hx Hematological Disorders No Significant History Endocrine History Hx Hypothyroidism Yes HEENT History Hx Cataracts Yes: REMOVED Integumentary History Hx Skin Disorders No Significant History Reproductive History Hx Post Menopausal Yes Psychosocial History Hx Anxiety Yes Pain History Has Past Pain Affected Your Daily Life Yes: chronic pain syndrome History of Long-Term Prescription Pain Yes: on naltrexone now Medication Use (Opiates) Anesthesia History Hx Anesthesia Reactions No Significant History Other History Hx Other Medical Conditions Yes: vitamin b12 deficiency Diagnosis Parkinson's Disease Onset Unknown Subjective Information Patient started noticing Query Text:As Reported By Patient/ tremors in the right arm in Family 2014. She was officially diagnosed with Parkinson's about a month ago. Has a rollator that she got when she went to the rehab hospital but states she does not really feel like she needs it unless she goes on a long walk where she might get
--- NOTE | 2020-12-03 10:45 | LSVTBIG ---
OCCUPATIONAL THERAPY DISCHARGE SUMMARY 12/03/20 Lorrie has made excellent progress since beginning therapy a month ago. She has had improved function and safety with ADLs and reports no falls. She has returned to driving and being more confident with lifting pots/pans in the kitchen also. Timed assessments today show marked improvement in gross and fine motor coordination on her right, affected side. It is recommended that she continues to complete the LSVT BIG exercises daily on her own. She is independent with all materials and is in agreement with discharge today. Thank you for referring Lorrie Eubanks to [facility].? Please review, sign, date and return this D/C Note DORIS. I agree with and certify that the following plan of care is medically necessary. Referring Physician Date Referring Provider: Yanet De Leon DO *LSVT BIG Evaluation Start: 11/05/20 09:01 Evaluation Information Problem Diagnosis Parkinson's Disease Onset Unknown Additional Evaluation Detail Patient's initial evaluation was on 11/05/20. She has been seen for 4 OT treatment sessions. Lorrie has been very compliant and cooperative throughout the program. She has been completing a series of repetitive exercises and functional tasks targeting flexibility, challenging her balance, facilitating big movements, and big posture. These exercises are aimed at increased amplitude of movement while addressing the sensorimotor mismatch of PD with the end goal of retraining Lorrie's perception of normal movement. Subjective Information Patient reports everything is Query Text:As Reported By Patient/ easier for her since Family beginning our program. She states that she no longer has difficulties with buttons, stairs, driving, lifting pots/ pans, or transferring into/out of her shower. She reports no falls and she states she is a lot more confident with her balance. Pain Assessment Timing of Pain Assessment Timing of Pain Assessment Assessment Pain Scale Pain Scale Used Numeric (1 - 10) Self Report Pain Assessment Right Knee(s) Reported Pain Level 2 Pain Description Aching Back Reported Pain Level
--- NOTE | 2020-12-03 11:04 | LSVTBIG ---
PHYSICAL THERAPY DISCHARGE NOTE Thank you for referring Lorrie Eubanks to [facility].? Please review, sign, date and return this plan of care DORIS. I agree with and certify that the following plan of care is medically necessary. Referring Physician Date Attending Provider: Yanet D eLeon, DO Discharge Parkinson's Disease Onset Unknown Subjective Information Patient reports everything is Query Text:As Reported By Patient/ easier for her since Family beginning our program. She states that she no longer has difficulties with buttons, stairs, driving, lifting pots/ pans, or transferring into/out of her shower. She reports no falls and she states she is a lot more confident with her Pain Score Pain Score 0: Self Report Balance Assessment Vasquez Balance Assessment Sitting to Standing Independent w/out Hands Unsupported Stance Ability Safely- 2 minutes Sitting Unsupported, Feet on Floor Safely- 2 minutes Standing to Sitting Safely, Minimal Hand Use Transfer Ability Safely, Minimal Hand Use Unsupported Stance- Eyes Closed 3 seconds Unsupported Stance- Feet Together Independent, 1 minute Reaching Forward while Standing Confidently, 10 inches group marketing vp Object From Floor Independent/Safe Look Behind Shoulder - Standing Shifts Weight Unilateral Turning 360 Degrees Turns slowly, but safely Unsupported Stance, Alternating Feet on (I)- 8 Steps in 20 secs Stair Unsupported Tandem Stance Small Step- 30 seconds Unilateral Leg Stance Lifts Leg/Holds > 3 secs VASQUEZ Balance Evaluation Total Score (/56 47 points) Comments 1month ago = 26/56 Time Up Go (TUG) Timed Up and Go Test (TUG) (Seconds) 9 Assistive Devices None Comments 1 month ago = 14seconds 5 Time Sit to Stand Time in Seconds 8.9 5 Time Sit to Stand Comments 1month ago = 15.31seconds Query Text:Normative Data: If Greater Than 15 Seconds, 74% Increase Risk for Recurrent Falls Gait Assessment 6 Minute Walk Total Distance (feet) 1,001 6 Minute Walk Gait Speed Score (feet/ 2.78 second) 6 Minute Gait Comments 1month ago = 557ft (1.54ft/ second) significantly improved gait pattern day with increased arm swing and step length Stair Climbing Assessment Stair Climbing Assessment Stair Climbing Assistive Devices None Maintains Weight Bearing Sta
== END 2020-12-04 10:02 | disposition home or self-care (01) ==
LOC: ANHPT 11:00
PROVIDERS: PCP Nurse Practitioner Family; Visit Provider Physical Medicine & Rehabilitation
DX: G20 Parkinson's disease (principal)
CPT/HCPCS: 97110; 97116; 97163; 97166; 97530

== ENCOUNTER 2021-08-09 07:49 | Outpatient (CLI) | payer MEDICARE, OTHER, SELFPAY ==
--- NOTE | ~2021-08-09 | MM_ITS ---
EXAMINATION: MM screening jace BI w adam HISTORY: Screening mammogram TECHNIQUE: Craniocaudal and mediolateral oblique 3-D tomosynthesis images were obtained and synthetic 2-D images were generated. CAD analysis was submitted and interpreted. COMPARISON: 07/07/2020, 04/29/2019, 04/16/2018 bilateral screening mammogram examinations BREAST PARENCHYMAL COMPOSITION: The breasts are heterogeneously dense, which may obscure small masses . FINDINGS: Stable bilateral intramammary lymph nodes. There is no evidence of suspicious mass, calcifi cation, or architectural distortion to suggest malignancy in either breast. There has been no suspici ous interval change. IMPRESSION: 1. No mammographic evidence of malignancy. 2. Recommend routine screening mammography in one year. BI-RADS Category 2: Benign finding(s). Reviewed, dictated and finalized at location A.
== END 2021-08-09 07:50 | disposition home or self-care (01) ==
LOC: ANHIMG 07:53
PROVIDERS: PCP Nurse Practitioner Family; Visit Provider Nurse Practitioner Family
DX: Z12.31 Encounter for screening mammogram for malignant neoplasm of breast (principal)
CPT/HCPCS: 77063; 77067

== ENCOUNTER → 2022-02-01 13:41 | Outpatient (CLI) | payer MEDICARE, OTHER, SELFPAY ==
--- NOTE | ~2022-02-01 | US_ITS ---
EXAMINATION: US pelvic complete DATE: 02/01/2022 14:15 INDICATION: Abdominal and pelvic pain TECHNIQUE: Multiple transabdominal and endovaginal sonographic images of the pelvis were obtained. COMPARISON: 01/08/2016 FINDINGS: The uterus measures 4.8 x 2.6 x 3.8 cm. The endometrial complex measures 2 mm. The right ov nanci is not visualized however no right adnexal abnormality is seen. The left ovary measures 1.6 x 1.0 x 1.3 cm. There is normal vascular flow in the left ovary. There is no free fluid in the pelvis. No sonographic abnormality is identified in the right lower quadrant to account for the patient's pain. IMPRESSION: 1. No sonographic correlate for the patient's symptoms. Reviewed, dictated and finalized at location A. 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
== END ==
PROVIDERS: PCP Nurse Practitioner Family; Visit Provider Nurse Practitioner Family
DX: R10.9 Unspecified abdominal pain (principal)
CPT/HCPCS: 76856

== ENCOUNTER → 2022-02-07 07:49 | Outpatient (CLI) | payer MEDICARE, OTHER, SELFPAY ==
--- NOTE | ~2022-02-07 | US_ITS ---
EXAMINATION: US abdomen complete DATE: 02/07/2022 08:54 INDICATION: Abdominal pain. TECHNIQUE: Multiple grayscale and Doppler ultrasound images of the abdomen were obtained. COMPARISON: CT abdomen and pelvis 10/26/2018, abdomen ultrasound 08/22/2016 FINDINGS: Abdominal aorta is normal in caliber. Inferior vena cava is normal. The visualized portions of the head and body of the pancreas are normal. The liver is normal without focal lesion. There is normal flow in main portal vein. The gallbladder is contracted. No gallstones or sonographic Bob s ign. The common duct is normal and measures 7 mm. The kidneys are normal in size. There are cysts in left kidney measuring up to 2.1 cm. The spleen is normal in size. IMPRESSION: 1. No etiology for the patient's symptoms. Reviewed, dictated and finalized at location A. 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
== END ==
PROVIDERS: PCP Nurse Practitioner Family; Visit Provider Nurse Practitioner Family
DX: R10.9 Unspecified abdominal pain (principal)
CPT/HCPCS: 76700

== ENCOUNTER → 2022-03-03 08:02 | Outpatient (CLI) | payer MEDICARE, OTHER, SELFPAY ==
--- NOTE | ~2022-03-03 | CT_ITS ---
EXAMINATION: CT abdomen pelvis w con INDICATION: Abdominal pain TECHNIQUE: Computed tomographic images of the abdomen and pelvis were obtained after the administrati on of 100 cc of Omnipaque 350 intravenous contrast. The dose-length product (DLP) was 342.08 mGy-cm. Automated exposure control and iterative reconstruction technique were employed. COMPARISON: 10/26/2018 FINDINGS: Minimal dependent atelectasis is present in the lung bases. The heart size is normal. There is a small sliding hiatal hernia. The liver, spleen,, gallbladder, and adrenal glands are normal. Pa ncreas divisum is noted. The right kidney is unremarkable. Cysts of the left kidney measure up to 1.8 cm There is calcified atherosclerosis of the aorta and many of the other arteries. No pathologically enlarged abdominal or pelvic lymph nodes are identified. A large volume of colonic stool is present. There is no free intraperitoneal gas or evidence of bowel obstruction. There is severe lumbar spondy losis at L5-S1. IMPRESSION: 1. No CT correlate for the patient's symptoms. Reviewed, dictated and finalized at location L. 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
[2022-03-03 08:34] LABS: Estimated Glomerular Filt Rate > 60
== END ==
PROVIDERS: PCP Nurse Practitioner Family; Visit Provider Nurse Practitioner Family
DX: R10.9 Unspecified abdominal pain (principal)
CPT/HCPCS: 74177; Q9967

== ENCOUNTER 2023-05-04 12:09 | Outpatient (CLI) | payer MEDICARE, OTHER, SELFPAY ==
[2023-05-04 13:10] LABS: CRP < 0.5 mg/dL (<1.0)
[2023-05-04 13:14] LABS: Erythrocyte Sedimentation Rate 16 mm/hr (0-20)
[2023-05-06 21:16] LABS: Scleroderma 70 Antibody <1.0
[2023-05-09 02:37] LABS: Tissue Transglutaminase IgG Ab <1.0 U/mL (<15.0)
[2023-05-09 09:51] LABS: Tissue Transglutaminase IgA Ab <1.0 U/mL (<15.0)
== END 2023-05-04 12:10 | disposition home or self-care (01) ==
PROVIDERS: PCP Nurse Practitioner Family; Visit Provider Internal Medicine Gastroenterology
DX: R53.1 Weakness (principal); K52.9 Noninfective gastroenteritis and colitis, unspecified
CPT/HCPCS: 36415; 85652; 86038; 86140; 86235; 86364

== ENCOUNTER 2023-05-11 06:37 | Outpatient (CLI) | payer MEDICARE, OTHER, SELFPAY | END 2023-05-11 06:38 | disposition home or self-care (01) | PROVIDERS: PCP Nurse Practitioner Family; Visit Provider Internal Medicine Gastroenterology | DX: R53.1 Weakness (principal); K52.9 Noninfective gastroenteritis and colitis, unspecified | CPT/HCPCS: 87045; 87177; 87209; 87427; 87449 ==

== ENCOUNTER 2023-05-24 07:00 | Outpatient (NON) | payer MEDICARE, OTHER, SELFPAY | END 2023-05-24 07:01 | disposition home or self-care (01) | PROVIDERS: PCP Nurse Practitioner Family; Visit Provider Internal Medicine Gastroenterology | DX: R10.9 Unspecified abdominal pain (principal) | CPT/HCPCS: 88305 ==

== ENCOUNTER 2023-05-24 08:17 | Day surgery (SDC) | payer MEDICARE, OTHER, SELFPAY ==
[2023-05-08 11:02] VITALS: BMI 18.3
--- NOTE | 2023-05-09 10:48 | SUR.PREOP ---
Spoke to Dr. Simmons regarding Pt's health history and medications. Per Dr. Simmons pt okay to come to [facility] for EGD. Medications to hold and take on day of procedure reviewed with Dr. Simmons (se pre-op instructions text). Pt updated on medication instructions. Pt states no further questions at this time.
[2023-05-24] MEDS: LACTATED RINGERS 1,000 ML 150 ML IV CONT (10:11)
[2023-05-24 10:13] VITALS: BP 171/85; PULSE 58; RESP 18; TEMP 36.4; O2SAT 100; BMI 18.0
--- NOTE | 2023-05-24 10:30 | WPDHPUPDATE1 ---
History and Physical Update Update Date/Time: 05/24/23 10:30 History and Physical has been reviewed, including an updated exam of the patient. There are NO changes in the patient's condition. Risks, benefits, and alternatives have been discussed and questions answered. Patient agrees to proceed with procedure.
--- NOTE | 2023-05-24 10:48 | WPDANESEPPF ---
Anes - Initial Pre Proc Eval Procedure: Operation Date: 05/24/23 11:00 Proposed Procedures p Esophagogastroduodenoscopy - Joe Lyle MD Date/Time: 05/24/23 10:48 Surgeon: Joe Lyle MD Pre Op Diagnosis: Noninfective Gastroenteritis and Colitis, ABD Pain Patient Data Age: 72 Gender: F Height: 1.52 m Weight: 41.9 kg Last Vital Signs Temp 36.4 C L 05/24/23 10:13 Pulse 58 L 05/24/23 10:13 Resp 18 05/24/23 10:13 BP 171/85 H 05/24/23 10:13 Pulse Ox 100 05/24/23 10:13 O2 Del Method Room Air 05/24/23 10:13 Allergies Allergy/AdvReac Type Severity Reaction Status Date / Time ropinirole Allergy Intermediate Rash and Verified 05/24/23 10:10 passing out Hmbgkmz-LAH-FaY Reductase Allergy Intermediate Unknown Verified 05/24/23 10:10 Inhibitor [Ufsommp-Hcr-Qbh Reductase Inhibitor] cefdinir AdvReac Severe gastric Verified 05/24/23 10:10 upset ticagrelor AdvReac Severe ABD Verified 05/24/23 10:10 CRAMPING PAIN N/V codeine AdvReac Mild N/V Verified 05/24/23 10:10 paroxetine AdvReac Mild PASSED OUT Verified 05/24/23 10:10 Home Medications Medication Instructions Recorded Confirmed Type aspirin 81 mg tablet,delayed 81 mg PO DAILY 12/24/18 05/24/23 History release (Destiny Low Dose Aspirin) naltrexone 50 mg tablet 4.5 mg PO DAILY 12/24/18 05/24/23 History levothyroxine 25 mcg tablet 25 mcg PO DAILY 10/20/20 05/24/23 History (Synthroid) propranolol 40 mg tablet 40 mg PO BID@0700,1200 #0 tabs 10/29/20 05/24/23 Rx isosorbide mononitrate 10 mg tablet 10 mg PO BID 12/16/21 05/24/23 History carbidopa 25 mg-levodopa 100 mg See Rx Instructions .Route 12/13/22 05/24/23 Rx tablet .COMPLEX #360 tabs lorazepam 0.5 mg tablet (Ativan) 0.5 mg PO DAILY PRN Anxiety 01/03/23 05/24/23 History Patient hx anesthesia problems: post op nausea/vomiting Family hx anesthesia problems: none Results Review: All pre-operative results and documents have been reviewed as part of the pre-operative evaluation. [facility] Past Medical History Medical History Abdominal pain Anxiety Anxiety AVM (arteriovenous malformation) of colon B12 deficiency CAD (coronary artery disease) Chronic pain Chronic pain syndrome Eosinophilic colitis Hx of adenomatous colonic polyps Hypothyroid TSH 10/19/2020 within normal limits Hypothyroidism Non-cardiac chest pain Osteoporosis Surgical History Surgical History H/O cardiac catheterization History of colonoscopy with polypectomy History of heart artery stent (~2013) X2 History of repair of right rotator cuff (~2014) History of toe surgery Hx of appendectomy Hx of right inguinal hernia repair Previous back surgery (~2015) Status post cataract extraction of both eyes with insertion of intraocular lens Family History Family History Father Family history of lung cancer Hypertension Mother Over 80 years old Hypertension Social History Social History Social History: He lives in [place] with her of 26 years. 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 She has 1 son who is healthy. She is a lifelong nonsmoker and does not drink alcohol or use illicit substances. Code status: Full code Primary care provider: Angela Segovia NP Surrogate decision maker: Smoking status: Never smoker Second hand tobacco smoke exposure: Yes Alcohol intake: never Substance use: never Substance use type: does not use Lack of Transportation: No Lack of Food: Never True Current Housing: I Have Housing Concerned About Future Housing: No Difficulty Paying Gas/Electric Bills: No Difficulty Paying for Meds: No Currently Unemployed: No Education: High School Dipl
[2023-05-24 11:21] VITALS: BP 94/61; PULSE 59; RESP 16; O2SAT 100
[2023-05-24 11:31] VITALS: BP 114/68; PULSE 65; RESP 15; O2SAT 99
--- NOTE | 2023-05-24 11:35 | WPDANESPN ---
Anes - Prog Note Post-Op Date/Time: 05/24/23 11:35 Cardiovascular status: normal Respiratory status: normal Airway patency: baseline Mental status: baseline Post-Op hydration status: normal Vital Signs: Last Vital Signs Temp 36.4 C L 05/24/23 10:13 Pulse 59 L 05/24/23 11:21 Resp 16 05/24/23 11:21 BP 94/61 L 05/24/23 11:21 Pulse Ox 100 05/24/23 11:21 O2 Del Method Room Air 05/24/23 11:21 Pain Score (VAS): 0 I/O: Intake & Output 05/23/23 05/24/23 05/24/23 23:59 07:59 15:59 Intake Total 200 Balance 200 Patient Feedback: Patient satisfied with anesthetic care.
[2023-05-24 11:41] VITALS: BP 123/77; PULSE 56; RESP 15; O2SAT 100
== END 2023-05-24 12:06 | disposition home or self-care (01) ==
PROVIDERS: PCP Nurse Practitioner Family; Visit Provider Internal Medicine Gastroenterology
PROC: 0DJ08ZZ Inspection of Upper Intestinal Tract, Via Natural or Artificial Opening Endoscopic (ICD-10-PCS; CPT 43235; principal; 2023-05-24 11:00)
DX: R10.84 Generalized abdominal pain (principal)
CPT/HCPCS: 43239

== ENCOUNTER 2023-07-05 07:20 | Outpatient (CLI) | payer MEDICARE, OTHER, SELFPAY ==
[2023-07-05 08:14] LABS: Alanine Aminotransferase 6 U/L (6-35); Albumin Level 4.4 g/dL (3.5-5.1); Alkaline Phosphatase 69 U/L (38-126); Anion Gap 5 mmol/L (4-12); Aspartate Amino Transferase 20 U/L (14-36); Bilirubin,Total 0.9 mg/dL (0.2-1.3); Blood Urea Nitrogen 24 mg/dL (7-17); Calcium 9.6 mg/dL (8.4-10.2); Carbon Dioxide 32 mmol/L (22-30); Chloride 101 mmol/L (98-107); Cholesterol 196 mg/dL (0-200); Estimated Glomerular Filt Rate > 60; Glucose 99 mg/dL (65-110); HDL Direct 68 mg/dL; Potassium 4.2 mmol/L (3.4-5.0); Sodium 138 mmol/L (137-145); Triglycerides 113 mg/dL (<150)
[2023-07-05 08:25] LABS: LDL Cholesterol Direct 102 mg/dL
== END 2023-07-05 07:21 | disposition home or self-care (01) ==
PROVIDERS: PCP Nurse Practitioner Family; Visit Provider Nurse Practitioner Family
DX: E03.9 Hypothyroidism, unspecified (principal); F41.9 Anxiety disorder, unspecified; I10 Essential (primary) hypertension; R10.9 Unspecified abdominal pain; G89.29 Other chronic pain
CPT/HCPCS: 36415; 80048; 80061; 80076; 84443

== ENCOUNTER 2023-07-26 15:12 | Outpatient (CLI) | payer MEDICARE, OTHER, SELFPAY ==
[2023-07-26 15:34] LABS: Basophils Absolute Auto 0.1 K/mm3 (0.0-0.1); Basophils Percent Auto 0.8 % (0.2-1.2); Eosinophils Absolute Auto 0.1 K/mm3 (0-0.3); Eosinophils Percent Auto 1.5 % (0-4.4); Hematocrit 38.9 % (37.0-47.0); Hemoglobin 12.6 g/dL (12.0-15.0); Immature Granulocyte Absolute 0.02 K/mm3 (0.00-0.031); Immature Granulocyte Percent A 0.3 % (0-0.5); Lymphocytes Absolute Auto 2.16 K/mm3 (0.9-3.2); Lymphocytes Percent Auto 32.7 % (18.3-44.2); Mean Corpuscular HGB Conc 32.4 g/dl (32-36); Mean Corpuscular Volume 95.6 fl (80-100); Mean Platelet Volume 9.8 fl (7.4-10.4); Monocytes Absolute Auto 0.8 K/mm3 (0.1-0.6); Neutrophils Absolute Auto 3.5 K/mm3 (1.3-6.7); Neutrophils Percent Auto 52.7 % (45.5-73.1); Platelet Count Result 337 k/mm3 (150-375); Red Blood Count 4.07 M/mm3 (4.2-5.4); Red Cell Distribution Width 14.3 % (11.5-14.5); White Blood Count 6.6 K/mm3 (4.5-10.0)
[2023-07-26 15:47] LABS: Albumin Level 4.4 g/dL (3.5-5.1); Alkaline Phosphatase 95 U/L (38-126); Anion Gap 4 mmol/L (4-12); Aspartate Amino Transferase 17 U/L (14-36); Bilirubin,Total 0.9 mg/dL (0.2-1.3); Blood Urea Nitrogen 21 mg/dL (7-17); Calcium 9.5 mg/dL (8.4-10.2); Carbon Dioxide 33 mmol/L (22-30); Chloride 102 mmol/L (98-107); Estimated Glomerular Filt Rate 55; Glucose 109 mg/dL (65-110); Potassium 4.2 mmol/L (3.4-5.0); Sodium 139 mmol/L (137-145)
[2023-07-26 16:15] LABS: Alanine Aminotransferase < 6 U/L (6-35)
== END 2023-07-26 15:13 | disposition home or self-care (01) ==
LOC: ANHLAB 15:15
PROVIDERS: PCP Nurse Practitioner Family; Visit Provider Nurse Practitioner Family
DX: K52.82 Eosinophilic colitis (principal); R10.9 Unspecified abdominal pain; R53.1 Weakness
CPT/HCPCS: 36415; 80053; 85025

== ENCOUNTER 2023-08-07 07:10 | Outpatient (CLI) | payer MEDICARE, OTHER, SELFPAY ==
[2023-08-09 17:33] LABS: Immunoglobulin E 9 kU/L (<OR=114)
== END 2023-08-07 07:11 | disposition home or self-care (01) ==
LOC: ANHLAB 07:18
PROVIDERS: PCP Nurse Practitioner Family; Visit Provider Nurse Practitioner Family
DX: K52.9 Noninfective gastroenteritis and colitis, unspecified (principal); R53.1 Weakness; K52.82 Eosinophilic colitis; R10.9 Unspecified abdominal pain
CPT/HCPCS: 36415; 82785

== ENCOUNTER 2023-09-06 12:39 | Emergency (ER) | payer MEDICARE, OTHER, SELFPAY ==
[2023-09-06 12:42] VITALS: BP 185/81; PULSE 60; RESP 16; TEMP 36.4; O2SAT 98
[2023-09-06 13:55] VITALS: BP 184/96; PULSE 60; RESP 16; O2SAT 100
[2023-09-06 13:58] VITALS: BP 184/96; PULSE 60; RESP 16; O2SAT 100
[2023-09-06 14:15] VITALS: BP 177/82; PULSE 55; RESP 16; O2SAT 98
--- NOTE | 2023-09-06 14:17 | ED.GENADULT ---
HPI - General Adult General Chief complaint: Recheck/Abnormal Lab/Rx Stated complaint: high blood pressure Time Seen by Provider: 09/06/23 13:53 History of Present Illness HPI narrative: 72-year-old female With history of CAD, hypothyroidism, and Parkinson's presents to the emergency room for evaluation of elevated blood pressure. patient states that she was at her GI appointment earlier today she was found have a blood pressure of 180/100. patient denies chest pain, palpitations, shortness of breath, dizziness, lightheadedness, nausea vomiting, headaches. Patient denies any recent changes to medications. Related Data Home Medications Medication Instructions Recorded Confirmed aspirin 81 mg tablet,delayed 81 mg PO DAILY 12/24/18 07/25/23 release (Destiny Low Dose Aspirin) isosorbide mononitrate 10 mg tablet 10 mg PO BID 12/16/21 07/25/23 naltrexone 4.5 mg capsule mg PO DAILY 06/22/23 07/25/23 Allergies Allergy/AdvReac Type Severity Reaction Status Date / Time ropinirole Allergy Intermediate Rash and Verified 09/06/23 11:28 passing out Tfwmbhx-OFR-HrK Reductase Allergy Intermediate Unknown Verified 09/06/23 11:28 Inhibitor [Aiktrkp-Uau-Dmu Reductase Inhibitor] cefdinir AdvReac Severe gastric Verified 09/06/23 11:28 upset ticagrelor AdvReac Severe ABD Verified 09/06/23 11:28 CRAMPING PAIN N/V codeine AdvReac Mild N/V Verified 09/06/23 11:28 paroxetine AdvReac Mild PASSED OUT Verified 09/06/23 11:28 [facility] Past Medical History Medical History Abdominal pain Anxiety Anxiety AVM (arteriovenous malformation) of colon B12 deficiency CAD (coronary artery disease) Chronic pain Chronic pain syndrome Eosinophilic colitis Hx of adenomatous colonic polyps Hypothyroid TSH 10/19/2020 within normal limits Hypothyroidism Non-cardiac chest pain Osteoporosis Surgical History Surgical History H/O cardiac catheterization History of colonoscopy with polypectomy History of heart artery stent (~2013) X2 History of repair of right rotator cuff (~2014) History of toe surgery Hx of appendectomy Hx of right inguinal hernia repair Previous back surgery (~2016) Status post cataract extraction of both eyes with insertion of intraocular lens Family History Family History Father Family history of lung cancer Hypertension Mother Over 80 years old Hypertension Social History Social History Social History: He lives in [place] with her of 26 years. 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 She has 1 son who is healthy. She is a lifelong nonsmoker and does not drink alcohol or use illicit substances. Code status: Full code Primary care provider: Angela Segovia NP Surrogate decision maker: Smoking status: Never smoker Second hand tobacco smoke exposure: Yes Alcohol intake: never Substance use: never Substance use type: does not use Do You Feel Safe in your Home?: Yes Lack of Transportation: No Lack of Food: Never True Current Housing: I Have Housing Concerned About Future Housing: No Difficulty Paying Gas/Electric Bills: No Difficulty Paying for Meds: No Currently Unemployed: No Education: High School Diploma/GED Difficulty w/ Childcare or Family Care: No Living arrangements: alone Spiritual care concerns: No Exam Narrative: GENERAL: Well-appearing, well-nourished, no physical limitations, and in no acute distress. HEAD: Normocephalic, atraumatic. EYES: Conjunctivae normal, PERRLA and EOMI. CHEST: Clear to auscultation. No respiratory distress. No wheezes rales or rhonchi. HEART: Regular rate and rhythm. No murmur heard. Normal peripheral pulses. ABDOMEN: Soft, nontender, non
[2023-09-06 14:19] LABS: Basophils Absolute Auto 0.1 K/mm3 (0.0-0.1); Basophils Percent Auto 0.9 % (0.2-1.2); Eosinophils Absolute Auto 0.1 K/mm3 (0-0.3); Eosinophils Percent Auto 0.9 % (0-4.4); Hematocrit 37.7 % (37.0-47.0); Hemoglobin 11.9 g/dL (12.0-15.0); Immature Granulocyte Absolute 0.03 K/mm3 (0.00-0.031); Immature Granulocyte Percent A 0.4 % (0-0.5); Lymphocytes Absolute Auto 2.18 K/mm3 (0.9-3.2); Lymphocytes Percent Auto 28.5 % (18.3-44.2); Mean Corpuscular HGB Conc 31.6 g/dl (32-36); Mean Corpuscular Hemoglobin 31.2 pg (26-34); Mean Corpuscular Volume 98.7 fl (80-100); Mean Platelet Volume 10.2 fl (7.4-10.4); Monocytes Absolute Auto 0.8 K/mm3 (0.1-0.6); Monocytes Percent Auto 9.9 % (2.6-8.5); Neutrophils Absolute Auto 4.5 K/mm3 (1.3-6.7); Neutrophils Percent Auto 59.4 % (45.5-73.1); Platelet Count Result 337 k/mm3 (150-375); Red Blood Count 3.82 M/mm3 (4.2-5.4); Red Cell Distribution Width 13.2 % (11.5-14.5); White Blood Count 7.6 K/mm3 (4.5-10.0)
[2023-09-06 14:29] LABS: Alanine Aminotransferase 9 U/L (6-35); Albumin Level 4.6 g/dL (3.5-5.1); Alkaline Phosphatase 76 U/L (38-126); Anion Gap 9 mmol/L (4-12); Aspartate Amino Transferase 24 U/L (14-36); Bilirubin,Total 1.2 mg/dL (0.2-1.3); Blood Urea Nitrogen 14 mg/dL (7-17); Calcium 9.8 mg/dL (8.4-10.2); Carbon Dioxide 32 mmol/L (22-30); Chloride 100 mmol/L (98-107); Estimated CRCL calculation 39 ml/min; Estimated Glomerular Filt Rate > 60; Glucose 116 mg/dL (65-110); Potassium 3.8 mmol/L (3.4-5.0); Sodium 141 mmol/L (137-145)
[2023-09-06] MEDS: CARBIDOPA/LEVODOPA 25/100 MG TABLET 2 TABLET PO (14:50)
[2023-09-06 15:10] VITALS: BP 167/88; PULSE 58; RESP 14; O2SAT 97
== END 2023-09-06 15:12 | disposition home or self-care (01) ==
PROVIDERS: Emergency Provider Nurse Practitioner Family; PCP Nurse Practitioner Family
DX: R03.0 Elevated blood-pressure reading, without diagnosis of hypertension (principal); G20.A1 Parkinson's disease without dyskinesia, without mention of fluctuations; I25.10 Atherosclerotic heart disease of native coronary artery without angina pectoris; E03.9 Hypothyroidism, unspecified; E53.8 Deficiency of other specified B group vitamins; K55.20 Angiodysplasia of colon without hemorrhage; M81.0 Age-related osteoporosis without current pathological fracture; F41.9 Anxiety disorder, unspecified; Z95.5 Presence of coronary angioplasty implant and graft; Z86.010 Personal history of colon polyps; Z96.1 Presence of intraocular lens; Z98.42 Cataract extraction status, left eye; Z98.41 Cataract extraction status, right eye; Z79.82 Long term (current) use of aspirin; Z79.899 Other long term (current) drug therapy
CPT/HCPCS: 36415; 80053; 85025; 99283; A9270

== ENCOUNTER 2023-09-14 12:14 | Emergency (ER) | payer MEDICARE, OTHER, SELFPAY ==
[2023-09-14] VITALS (13 sets, daily range): BP systolic 126–151; BP diastolic 70–85; PULSE 57–72; RESP 19–30; TEMP 36.7; O2SAT 94–99
--- NOTE | ~2023-09-14 | CT_ITS ---
EXAMINATION: CT abdomen pelvis w con DATE: 09/14/2023 14:33 INDICATION: Suprapubic right flank pain TECHNIQUE: Computed tomography (CT) of the abdomen and pelvis was performed with 100 mL Omnipaque-350 intravenous contrast. Automated exposure control and iterative reconstruction technique were employe d. The dose-length product was 209.39 mGy-cm. COMPARISON: 03/03/2022 FINDINGS: Mild dependent atelectasis in the bilateral lower lobes. Heart size is normal. Atherosclerotic sanchez ry artery calcifications versus stenting along the right coronary artery. No pericardial or pleural e ffusion. Liver, gallbladder, spleen, bilateral adrenal glands and right kidney are normal. Couple flu id to recent left renal cysts the larger measuring 2.2 cm. 8 mm cystic lesion at the head of the panc reas. Pancreas divisum with dilation of the main pancreatic at the tail of pancreas weren't measures up to 3 mm. There is also dilation of the pancreatic duct draining the uncinate process which measure s up to 5 mm near its confluence with the common bile duct. There is also mild dilation of the 9 mm a t the common hepatic duct and 7 mm the common bile duct. Unchanged pattern of phleboliths in the pelv is including at the bilateral ovaries. No evident urolithiasis. Bladder, and uterus are normal. Baumann es of likely prior appendectomy with multiple surgical clips along the tip the cecum. No bowel obstru ction. No free intraperitoneal gas or fluid. No pathologically enlarged abdominal or pelvic lymphaden opathy. Severe spondylosis at the lumbosacral junction. Mild spondylosis of the more cephalad thoraco lumbar spine with mild dextrocurvature. IMPRESSION: 1. Pancreas to be some and increasing mild dilation of the common bile duct and pancreatic ducts. Cor relate with lipase levels and liver function tests. Could consider further evaluation with MRCP as cl inically indicated. 2. Nonspecific 8 mm cystic lesion at the head of the pancreas. Recommend one-year follow-up pre and p ostcontrast MRI. Reviewed, dictated and finalized at location A. IMPRESSION: 1. Pancreas to be some and increasing mild dilation of the common bile duct and pancreatic ducts. Correlate with lipase levels and liver function tests. Could consider further evaluation with MRCP as clinically indicated. 2. Nonspecific 8 mm cystic lesion at the head of the pancreas. Recommend one-ye ar follow-up pre and postcontrast MRI.
--- NOTE | 2023-09-14 12:28 | ED.GENADULT ---
HPI - General Adult General Chief complaint: Recheck/Abnormal Lab/Rx Stated complaint: HTN, UTI Time Seen by Provider: 09/14/23 12:21 Source: patient Mode of arrival: ambulatory Limitations: no limitations History of Present Illness HPI narrative: This is a 72-year-old female who presents to the ED for chief complaint suprapubic pressure, dysuria ongoing intermittently for the past several months. States that she has been on a few different antibiotics this year for UTIs. She is also concerned over her blood pressure being very elevated at home. States he was the 180s. Denies fevers, chills, nausea vomiting, hematuria, chest pain, headache, numbness, weakness. Related Data Home Medications Medication Instructions Recorded Confirmed aspirin 81 mg tablet,delayed 81 mg PO DAILY 12/24/18 09/07/23 release (Destiny Low Dose Aspirin) isosorbide mononitrate 10 mg tablet 10 mg PO BID 12/16/21 09/07/23 naltrexone 4.5 mg capsule mg PO DAILY 06/22/23 09/07/23 Allergies Allergy/AdvReac Type Severity Reaction Status Date / Time ropinirole Allergy Intermediate Rash and Verified 09/14/23 12:27 passing out Rvnrogt-VMX-RfJ Reductase Allergy Intermediate Unknown Verified 09/14/23 12:27 Inhibitor [Knbjuph-Etf-Jqn Reductase Inhibitor] cefdinir AdvReac Severe gastric Verified 09/14/23 12:27 upset ticagrelor AdvReac Severe ABD Verified 09/14/23 12:27 CRAMPING PAIN N/V codeine AdvReac Mild N/V Verified 09/14/23 12:27 paroxetine AdvReac Mild PASSED OUT Verified 09/14/23 12:27 Review of Systems Review of Systems: All systems as dictated in HPI [facility] Past Medical History Medical History Abdominal pain Anxiety Anxiety AVM (arteriovenous malformation) of colon B12 deficiency CAD (coronary artery disease) Chronic pain Chronic pain syndrome Eosinophilic colitis Hx of adenomatous colonic polyps Hypothyroid TSH 10/19/2020 within normal limits Hypothyroidism Non-cardiac chest pain Osteoporosis Surgical History Surgical History H/O cardiac catheterization History of colonoscopy with polypectomy History of heart artery stent (~2013) X2 History of repair of right rotator cuff (~2014) History of toe surgery Hx of appendectomy Hx of right inguinal hernia repair Previous back surgery (~2015) Status post cataract extraction of both eyes with insertion of intraocular lens Family History Family History Father Family history of lung cancer Hypertension Mother Over 80 years old Hypertension Social History Social History Social History: He lives in [place] with her of 26 years. 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 She has 1 son who is healthy. She is a lifelong nonsmoker and does not drink alcohol or use illicit substances. Code status: Full code Primary care provider: Angela Segovia NP Surrogate decision maker: Smoking status: Never smoker Second hand tobacco smoke exposure: Yes Alcohol intake: never Substance use: never Substance use type: does not use Do You Feel Safe in your Home?: Yes Lack of Transportation: No Lack of Food: Never True Current Housing: I Have Housing Concerned About Future Housing: No Difficulty Paying Gas/Electric Bills: No Difficulty Paying for Meds: No Currently Unemployed: No Education: High School Diploma/GED Difficulty w/ Childcare or Family Care: No Living arrangements: alone Spiritual care concerns: No Exam Narrative: GENERAL: Well-appearing, well-nourished, and in no acute distress. HEAD: Normocephalic, atraumatic. EYES: PERRLA and EOMI. ENT: Nares clear, no rhinorrhea or epistaxis. Mucous membranes moist. Oropharynx without tonsillar h
[2023-09-14 13:30] LABS: Basophils Absolute Auto 0.1 K/mm3 (0.0-0.1); Basophils Percent Auto 1.1 % (0.2-1.2); Eosinophils Absolute Auto 0.1 K/mm3 (0-0.3); Eosinophils Percent Auto 1.1 % (0-4.4); Hematocrit 33.3 % (37.0-47.0); Hemoglobin 10.5 g/dL (12.0-15.0); Immature Granulocyte Absolute 0.03 K/mm3 (0.00-0.031); Immature Granulocyte Percent A 0.4 % (0-0.5); Lymphocytes Absolute Auto 1.87 K/mm3 (0.9-3.2); Lymphocytes Percent Auto 23.4 % (18.3-44.2); Mean Corpuscular HGB Conc 31.5 g/dl (32-36); Mean Corpuscular Hemoglobin 31.6 pg (26-34); Mean Corpuscular Volume 100.3 fl (80-100); Mean Platelet Volume 10.5 fl (7.4-10.4); Monocytes Absolute Auto 0.8 K/mm3 (0.1-0.6); Monocytes Percent Auto 9.6 % (2.6-8.5); Neutrophils Absolute Auto 5.1 K/mm3 (1.3-6.7); Neutrophils Percent Auto 64.4 % (45.5-73.1); Platelet Count Result 288 k/mm3 (150-375); Red Blood Count 3.32 M/mm3 (4.2-5.4); Red Cell Distribution Width 12.8 % (11.5-14.5)
[2023-09-14] MEDS: ONDANSETRON INJ 4 MG/2 ML VIAL IV PUSH (13:32)
[2023-09-14] MEDS: MORPHINE SULFATE (*CRX) 4 MG/ML INJ IV PUSH (13:34)
[2023-09-14 13:40] LABS: Appearance Urine Turbid (Clear); Bacteria Urine None Seen /hpf; Bilirubin Urine 1+ (Negative); Blood Urine Negative (Negative); Color Urine Orange (Yellow); Glucose Urine UA Negative (Negative); Ketones Urine Negative (Negative); Leukocyte Esterase Ur 1+ LEU/UL (Negative); Need Manual Microscopic Reviewed; Nitrate Urine Positive (Negative); Non Pathogenic Casts 0-2; Protein Urine Trace mg/dL (Negative); RBC Urine 0-2 /hpf (0-2); Specific Grav Ur 1.016 (1.001-1.035); Squamous Epithelial Cell Urine None Seen /hpf (Few); WBC Urine 0-5 /hpf (0-3)
[2023-09-14 13:41] LABS: Add Urine Microscopic? YES; Amorphous Sediment Urine Few
--- NOTE | 2023-09-14 13:56 | PC.NURSE ---
patient has been taking AZO for UTI symptoms
[2023-09-14 14:08] LABS: Albumin Level 4.2 g/dL (3.5-5.1); Alkaline Phosphatase 90 U/L (38-126); Anion Gap 7 mmol/L (4-12); Aspartate Amino Transferase 22 U/L (14-36); Bilirubin,Total 0.7 mg/dL (0.2-1.3); Blood Urea Nitrogen 20 mg/dL (7-17); Calcium 9.3 mg/dL (8.4-10.2); Carbon Dioxide 34 mmol/L (22-30); Chloride 98 mmol/L (98-107); Estimated CRCL calculation 39 ml/min; Estimated Glomerular Filt Rate > 60; Glucose 97 mg/dL (65-110); Lipase 196 U/L (23-300); Potassium 4.3 mmol/L (3.4-5.0); Sodium 139 mmol/L (137-145)
[2023-09-14 14:40] LABS: Alanine Aminotransferase < 6 U/L (6-35)
[2023-09-14] MEDS: KETOROLAC 15 MG/ML VIAL (*BKC) IV PUSH (15:48)
[2023-09-14] MEDS: LORazepam (*CRX) 0.5 MG TABLET PO (16:16)
--- NOTE | 2023-09-14 16:16 | PC.NURSE ---
patient took a dose of AZO that she had with her. hold pyridium at this time per Dr. Mcdaniel. advised patient to not take any more medications without asking. patient verbalized understanding
== END 2023-09-14 17:28 | disposition home or self-care (01) ==
PROVIDERS: Emergency Provider Physician Assistant; PCP Nurse Practitioner Family
DX: N39.0 Urinary tract infection, site not specified (principal); I25.10 Atherosclerotic heart disease of native coronary artery without angina pectoris; E03.9 Hypothyroidism, unspecified
CPT/HCPCS: 36415; 74177; 80053; 81001; 83690; 85025; 96365; 96375; 99284; A9270; J0696; J1885; J2270; J2405; Q9967

== ENCOUNTER 2023-10-16 11:10 | Inpatient (IN) | payer MEDICARE, OTHER, SELFPAY ==
--- NOTE | ~2023-10-16 | MR_ITS ---
EXAMINATION: MR MRCP wo/w con/w 3D wo ind DATE: 10/17/2023 10:09 INDICATION: Dilated pancreatic duct. Abdominal pain. TECHNIQUE: Magnetic resonance imaging (MRI) of the abdomen was performed without and with 9 mL MultiH ance intravenous contrast. Sequences included coronal T2-weighted FS FSE, coronal T2-weighted FSE, ax ial T1-weighted LAVA, coronal FS FIESTA, axial dual-echo T1-weighted SPGR, coronal lava-FLEX, sagitta l T2-weighted FSE, axial T2-weighted FSE, and axial DWI. Thick-slab T2-weighted FSE images were obtai lu for magnetic resonance cholangiopancreatography (MRCP). Maximum intensity projection 3-D reconstr uctions of the volumetric data were created by the technologist. Postcontrast sequences included shubham nal LAVA-flex and time course of axial T1-weighted LAVA. COMPARISON: MRCP 06/30/2016, CT abdomen and pelvis 10/16/2023 FINDINGS: ABDOMEN MRI: The liver is normal. There is sludge in the gallbladder which is normal in size. The spl een is normal. There is a 7 mm cyst in the neck of the pancreas that communicates with the main pancr eatic duct. The adrenal glands and right kidney are normal. There is a 2.1 cm hemorrhagic cyst in lef t kidney. There are cysts in left kidney measuring up to 7 mm. There are no dilated loops of bowel. ABDOMEN MRCP: The common duct is mildly dilated to 9 mm. No choledocholithiasis. The pancreatic duct measures up to 4 mm, which is normal. IMPRESSION: 1. Chronic mild dilatation of the common duct. No choledocholithiasis. 2. Low-risk 7 mm cyst in the pancreas. The differential diagnosis includes pseudocyst, intraductal pa pillary mucinous neoplasm (IPMN), mucinous cystic neoplasm (MCN), serous cystadenoma, and neuroendocr ine tumor. Abdomen MRI without and with contrast is recommended in 2 years. Reviewed, dictated and finalized at location A. IMPRESSION: 1. Chronic mild dilatation of the common duct. No choledocholithiasis. 2. Low-risk 7 mm cyst in the pancreas. The differential diagnosis includes pseu docyst, intraductal papillary mucinous neoplasm (IPMN), mucinous cystic neoplas m (MCN), serous cystadenoma, and neuroendocrine tumor. Abdomen MRI without and with contrast is recommended in 2 years.
--- NOTE | ~2023-10-16 | CT_ITS ---
EXAMINATION: CT abdomen pelvis w con DATE: 10/16/2023 19:53 INDICATION: Abdominal pain. TECHNIQUE: Computed tomography (CT) of the abdomen and pelvis was performed with 100 mL Omnipaque 350 intravenous contrast. Automated exposure control and iterative reconstruction technique were employe d. The dose-length product was 153.48 mGy-cm. COMPARISON: CT abdomen and pelvis 09/14/2023, 03/03/22 FINDINGS: The visualized portions of lung bases demonstrate minimal atelectasis. No pleural effusion. The heart size is normal. No pericardial effusion. The liver, gallbladder, spleen, adrenal glands, a nd right kidney are normal. There are cysts in left kidney measuring up to 2.4 cm. There is incomplet e pancreas divisum. There is an 8 mm cyst in the pancreas. There is calcified atherosclerosis of the aorta and many of the other arteries. There are no dilated loops of bowel. The appendix is not visual ized. There are no pathologically enlarged lymph nodes. There is no free intraperitoneal fluid. There is severe lower lumbar spondylosis. IMPRESSION: 1. No etiology for the patient's symptoms. 2. 8 mm pancreatic cyst. The differential diagnosis includes pseudocyst, intraductal papillary mucino us neoplasm (IPMN), mucinous cystic neoplasm (MCN), serous cystadenoma, and neuroendocrine tumor. Abd omen MRI without and with contrast is recommended in 2 years. Reviewed, dictated and finalized at location A. IMPRESSION: 1. No etiology for the patient's symptoms. 2. 8 mm pancreatic cyst. The differential diagnosis includes pseudocyst, intrad uctal papillary mucinous neoplasm (IPMN), mucinous cystic neoplasm (MCN), serou s cystadenoma, and neuroendocrine tumor. Abdomen MRI without and with contrast is recommended in 2 years.
[2023-10-16 11:12] VITALS: BP 145/95; PULSE 60; RESP 16; TEMP 36.6; O2SAT 95
--- NOTE | 2023-10-16 13:55 | ED.ABDPAIN ---
HPI - Abdominal Pain General Chief Complaint: Abdominal Pain <Camille Chatterjee PA-C - Last Filed: 10/17/23 09:23> Stated Complaint: abd pain <Camille Chatterjee PA-C - Last Filed: 10/17/23 09:23> Time Seen by Provider: 10/16/23 13:55 <Camille Chatterjee PA-C - Last Filed: 10/17/23 09:23> Focused HPI: This is a 72 year old female that presents to the ER for abdominal pain. Ongoing over the last several months. Reports she has had scopes and scans to work up this pain. Has had a lot of antibiotics for UTIs. Reports some nausea and dysuria. She sees Dr. Judd for this. Denies fever, vomiting, or diarrhea. GENERAL: Well-appearing, well-nourished, and in no acute distress. HEAD: Normocephalic, atraumatic. CHEST: Clear to auscultation. ?No respiratory distress. HEART: Regular rate and rhythm.? NEURO: ?Alert and oriented x3. Patient screened in triage and initial orders placed.? ?Additional care and disposition to be based upon?diagnostic testing and treatment. <Camille Chatterjee PA-C - Last Filed: 10/17/23 09:23> History of Present Illness HPI narrative: 72-year-old with a history of Parkinson head with the complaints of abdominal pain which has been ongoing for the past few months. She has been seen in the ER for this several times. She also states that she had a EGD and colonoscopy done by Dr. Judd but still continues to have pain. She denies any nausea and vomiting. No history of fever or chills. Patient states that she has been on antibiotic for urinary tract infection. Moment she finished her antibiotics to started to have pain. Upon chart review CT scan done the in August showed dilated pancreatic biliary duct suggestive of MRCP. Patient had no MRI or MRCP done on outpatient basis. <Jet Epperson MD - Last Filed: 10/16/23 17:14> MD elicited complaint: abdominal pain <Jet Epperson MD - Last Filed: 10/16/23 17:14> Pertinent past history: none <Jet Epperson MD - Last Filed: 10/16/23 17:14> Onset (ago): month(s) <Jet Epperson MD - Last Filed: 10/16/23 17:14> Pain Consistency: constant <Jte Epperson MD - Last Filed: 10/16/23 17:14> Location: diffuse <Jet Epperson MD - Last Filed: 10/16/23 17:14> Severity: moderate <Jet Epperson MD - Last Filed: 10/16/23 17:14> Quality: aching <Jet Epperson MD - Last Filed: 10/16/23 17:14> Radiation: none <Jet Epperson MD - Last Filed: 10/16/23 17:14> Migration to: no migration <Jet Epperson MD - Last Filed: 10/16/23 17:14> Exacerbating factors: nothing <Jet Epperson MD - Last Filed: 10/16/23 17:14> Relieving factors: nothing <Jet Epperson MD - Last Filed: 10/16/23 17:14> Related Data Home Medications: Home Medications Medication Instructions Recorded Confirmed aspirin 81 mg tablet,delayed 81 mg PO DAILY 12/24/18 10/16/23 release (Destiny Low Dose Aspirin) isosorbide mononitrate 10 mg tablet 10 mg PO BID 12/16/21 10/16/23 naltrexone 4.5 mg capsule 4.5 mg PO DAILY 06/22/23 10/16/23 carbidopa 25 mg-levodopa 100 mg 2 tablet PO QID 10/16/23 10/16/23 tablet <Camille Chatterjee PA-C - Last Filed: 10/17/23 09:23> Allergies/Adverse Reactions: Allergies Allergy/AdvReac Type Severity Reaction Status Date / Time ropinirole Allergy Intermediate Rash and Verified 10/16/23 19:19 passing out Uhedivi-RCW-BpM Reductase Allergy Intermediate Unknown Verified 10/16/23 19:19 Inhibitor [Kxpehsu-Zsg-Pzl Reductase Inhibitor] cefdinir AdvReac Severe gastric Verified 10/16/23 19:19 upset ticagrelor AdvReac Severe ABD Verified 10/16/23 19:19 CRAMPING PAIN N/V codeine AdvReac Mild N/V Verified 10/16/23 19:19 paroxetine AdvReac Mild PASSED OUT Verified 10/16/23 19:19 <Camille Chatterjee PA-C - Last Filed: 10/17/23 09:23> Review of Systems Review of Systems: All systems reviewed & are unremarkable except as noted in HPI and
[2023-10-16 14:13] LABS: Basophils Absolute Auto 0.1 K/mm3 (0.0-0.1); Basophils Percent Auto 0.9 % (0.2-1.2); Eosinophils Percent Auto 0.4 % (0-4.4); Hematocrit 36.4 % (37.0-47.0); Hemoglobin 11.7 g/dL (12.0-15.0); Immature Granulocyte Absolute 0.02 K/mm3 (0.00-0.031); Immature Granulocyte Percent A 0.3 % (0-0.5); Lymphocytes Absolute Auto 2.31 K/mm3 (0.9-3.2); Lymphocytes Percent Auto 30.4 % (18.3-44.2); Mean Corpuscular HGB Conc 32.1 g/dl (32-36); Mean Corpuscular Hemoglobin 31.4 pg (26-34); Mean Corpuscular Volume 97.6 fl (80-100); Mean Platelet Volume 9.9 fl (7.4-10.4); Monocytes Absolute Auto 0.8 K/mm3 (0.1-0.6); Monocytes Percent Auto 10.5 % (2.6-8.5); Neutrophils Absolute Auto 4.4 K/mm3 (1.3-6.7); Neutrophils Percent Auto 57.5 % (45.5-73.1); Platelet Count Result 323 k/mm3 (150-375); Red Blood Count 3.73 M/mm3 (4.2-5.4); Red Cell Distribution Width 12.7 % (11.5-14.5); White Blood Count 7.6 K/mm3 (4.5-10.0)
[2023-10-16 14:26] LABS: Alanine Aminotransferase 6 U/L (6-35); Albumin Level 4.4 g/dL (3.5-5.1); Alkaline Phosphatase 53 U/L (38-126); Anion Gap 9 mmol/L (4-12); Aspartate Amino Transferase 24 U/L (14-36); Blood Urea Nitrogen 18 mg/dL (7-17); Calcium 9.3 mg/dL (8.4-10.2); Carbon Dioxide 31 mmol/L (22-30); Chloride 96 mmol/L (98-107); Estimated CRCL calculation 42 ml/min; Estimated Glomerular Filt Rate > 60; Glucose 94 mg/dL (65-110); Lipase 180 U/L (23-300); Potassium 3.7 mmol/L (3.4-5.0); Sodium 136 mmol/L (137-145)
[2023-10-16 14:35] LABS: Bacteria Urine None Seen /hpf; Need Manual Microscopic Reviewed; Non Pathogenic Casts 0-2; RBC Urine 0-2 /hpf (0-2); Squamous Epithelial Cell Urine None Seen /hpf (Few); WBC Urine 0-5 /hpf (0-3)
[2023-10-16 15:08] LABS: Add Urine Microscopic? YES; Appearance Urine Clear (Clear); Specific Grav Ur 1.019 (1.001-1.035)
[2023-10-16 15:09] LABS: Color Urine Orange (Yellow)
--- NOTE | 2023-10-16 15:59 | PC.NURSE ---
Pt reports has had abdominal for 4-5 months states It started hurting after I was done with my antibiotics. If I could have Ativan & pain pill it would be better
[2023-10-16 16:00] VITALS: BP 191/93; PULSE 70; RESP 16; TEMP 36.7; O2SAT 97
--- NOTE | 2023-10-16 16:15 | PM.IMHP ---
H&P: HPI History of Present Illness Date/Time: 10/16/23 16:15 Chief Complaint: Abdominal pain Narrative: This is a 72-year-old female with a significant past medical history of anxiety, AVM of the colon, B12 deficiency, coronary artery disease, eosinophilic colitis, hypothyroidism, osteoporosis who presented to the hospital with abdominal pain over the last several months. She states that she has been worked up quite a bit for this abdominal pain in the past including EGD, colonoscopies, CT scan and has consistently a negative workup. She is a patient Dr. Judd and had an EGD done on 05/24/2023 which shown normal EGD with normal mucosa throughout the esophagus stomach and duodenum, random biopsies were taken from the distal esophagus, body of the stomach, antrum and distal duodenum with no obvious explanation for abdominal pain. Biopsies were negative for eosinophilic esophagitis. Patient states that her pain is all over in the abdomen and describes it as a gas or pressure. She denies any fever, chills, nausea, vomiting, diarrhea, abdominal pain, chest pain, shortness a breath. She does state that she has no issues with swallowing, and is able to eat and drink without any issues. She did have a significant weight loss and dropped down to about 80 lb however has gained some of that weight back. Workup in the hospital include labs which showed a normal white blood cell count of 7.6, hemoglobin 11.7, sodium 136, chloride 96. UA was obtained and was negative. She also had a CT of the abdomen and pelvis with contrast that showed no etiology for the patient's symptoms, showed an 8 mm pancreatic cyst with recommendations for another abdominal MRI with and without contrast in 2 years. Patient was given Zofran and morphine while in the ED. GI was consulted and plans for MRCP tomorrow. Review of Systems Review of Systems: All systems reviewed & are unremarkable except as noted in HPI and below Constitutional: Constitutional: Reports as per HPI and Reports no additional constitutional complaints Eyes: Eyes: Reports as per HPI and Reports no additional eye complaints ENT: Reports system reviewed and no additional complaints, except as documented and Reports as per HPI Cardiovascular: Cardiovascular: Reports as per HPI and Reports no additional cardiovascular complaints Respiratory: Respiratory: Reports as per HPI and Reports no additional respiratory complaints Gastrointestinal: Gastrointestinal: Reports as per HPI and Reports no additional gastrointestinal complaints Genitourinary: Genitourinary: Reports no additional female genitourinary complaints and Reports as per HPI Musculoskeletal: Musculoskeletal: Reports no additional musculoskeletal complaints and Reports as per HPI Integumentary/Breasts: Skin/Breast: Reports system reviewed and no additional complaints, except as docu and Reports as per HPI Neurologic: Reports system reviewed and no additional complaints, except as documented and Reports as per HPI Psychiatric: Psychiatric: Reports no additional psychiatric complaints and Reports as per HPI [facility] Past Medical History Medical History Abdominal pain Anxiety Anxiety AVM (arteriovenous malformation) of colon B12 deficiency CAD (coronary artery disease) Chronic pain Chronic pain syndrome Eosinophilic colitis Hx of adenomatous colonic polyps Hypothyroid TSH 10/19/2020 within normal limits Hypothyroidism Non-cardiac chest pain Osteoporosis Surgical History Surgical History H/O cardiac catheterization History of colonoscopy with polypectomy History of heart artery stent (~2013) X2 History of repair of right rotator cuff (~2014) History of toe surgery Hx of appendectomy Hx of right inguinal hernia repair Previous back surgery (~2015) Status post cataract extraction of both eyes with insertion of intraocular lens
[2023-10-16] MEDS: SODIUM CHLORIDE 0.9% IV 1,000 ML 150 ML IV CONT (16:42)
[2023-10-16 17:00] VITALS: BP 168/77; PULSE 64; RESP 18; O2SAT 95
[2023-10-16 18:00] VITALS: BP 163/75; PULSE 65; RESP 18; O2SAT 94
[2023-10-16] MEDS: MORPHINE SULFATE (*CRX) 4 MG/ML INJ IV PUSH (18:21)
[2023-10-16] MEDS: ONDANSETRON INJ 4 MG/2 ML VIAL IV PUSH ×2 (18:22→22:35)
[2023-10-16 19:22] VITALS: BP 168/77; PULSE 64; RESP 18; TEMP 36.7
[2023-10-16 22:00] VITALS: BP 151/78; PULSE 71; RESP 18; TEMP 36.9; O2SAT 97
[2023-10-16] MEDS: FAMOTIDINE 20 MG/2 ML VIAL IV PUSH (22:34)
[2023-10-16] MEDS: MORPHINE SULFATE (*CRX) 2 MG/ML INJ IV PUSH (22:35)
[2023-10-16] MEDS: SODIUM CHLORIDE 0.9% IV 1,000 ML 125 ML IV CONT (22:42)
[2023-10-17] MEDS: AMITRIPTYLINE HCL 10 MG TABLET PO ×2 (01:29→21:35)
[2023-10-17] MEDS: CARBIDOPA/LEVODOPA 25/100 MG TABLET 2 TABLET PO ×5 (01:30→21:35)
[2023-10-17] MEDS: LORazepam (*CRX) 0.5 MG TABLET PO ×3 (01:30→21:34)
[2023-10-17] MEDS: MORPHINE SULFATE (*CRX) 2 MG/ML INJ IV PUSH ×4 (01:44→18:38)
[2023-10-17] MEDS: LEVOTHYROXINE SODIUM 25 MCG TABLET PO (05:54)
[2023-10-17] MEDS: SODIUM CHLORIDE 0.9% IV 1,000 ML 125 ML IV CONT ×2 (05:54→08:21)
[2023-10-17] MEDS: PROPRANOLOL HCL 40 MG TABLET PO ×2 (05:54→12:03)
[2023-10-17 06:00] VITALS: BP 138/70; PULSE 58; RESP 16; TEMP 36.6; O2SAT 94
[2023-10-17] MEDS: FAMOTIDINE 20 MG/2 ML VIAL IV PUSH ×2 (08:18→21:35)
[2023-10-17] MEDS: ASPIRIN 81 MG ENTERIC TABLET PO (08:18)
[2023-10-17 08:20] VITALS: O2SAT 95
[2023-10-17] MEDS: ISOSORBIDE MONONITRATE 10 MG TABLET PO ×2 (08:21→15:08)
[2023-10-17 08:48] LABS: Basophils Absolute Auto 0.1 K/mm3 (0.0-0.1); Eosinophils Absolute Auto 0.1 K/mm3 (0-0.3); Hematocrit 38.2 % (37.0-47.0); Hemoglobin 11.6 g/dL (12.0-15.0); Immature Granulocyte Absolute 0.02 K/mm3 (0.00-0.031); Immature Granulocyte Percent A 0.3 % (0-0.5); Lymphocytes Absolute Auto 2.67 K/mm3 (0.9-3.2); Mean Corpuscular HGB Conc 30.4 g/dl (32-36); Mean Corpuscular Hemoglobin 30.9 pg (26-34); Mean Corpuscular Volume 101.6 fl (80-100); Mean Platelet Volume 9.9 fl (7.4-10.4); Monocytes Absolute Auto 0.7 K/mm3 (0.1-0.6); Monocytes Percent Auto 10.6 % (2.6-8.5); Neutrophils Absolute Auto 3.1 K/mm3 (1.3-6.7); Neutrophils Percent Auto 47.1 % (45.5-73.1); Platelet Count Result 310 k/mm3 (150-375); Red Blood Count 3.76 M/mm3 (4.2-5.4); White Blood Count 6.7 K/mm3 (4.5-10.0)
[2023-10-17 09:05] LABS: Alanine Aminotransferase 6 U/L (6-35); Alkaline Phosphatase 53 U/L (38-126); Anion Gap 10 mmol/L (4-12); Aspartate Amino Transferase 26 U/L (14-36); Bilirubin,Total 0.7 mg/dL (0.2-1.3); Blood Urea Nitrogen 8 mg/dL (7-17); Calcium 7.9 mg/dL (8.4-10.2); Carbon Dioxide 27 mmol/L (22-30); Chloride 99 mmol/L (98-107); Estimated CRCL calculation 48 ml/min; Estimated Glomerular Filt Rate > 60; Glucose 74 mg/dL (65-110); Potassium 2.8 mmol/L (3.4-5.0); Sodium 136 mmol/L (137-145)
[2023-10-17 10:51] VITALS: BMI 17.6
[2023-10-17 12:03] VITALS: PULSE 78
[2023-10-17 14:00] VITALS: BP 136/72; PULSE 72; RESP 20; TEMP 36.2; O2SAT 99
--- NOTE | 2023-10-17 14:54 | PM.IMPN ---
Progress Note: A&P Assessment and Plan (1) Abdominal pain: Qualifiers: Abdominal location: generalized Qualified Code(s): R10.84 - Generalized abdominal pain Code(s): R10.9 - Unspecified abdominal pain Status: Acute Assessment and Plan: 10/17/23: Reports continued abdominal pain for several months. Per patient EGD, colonoscopy, and CT scan shows no significant finding CT of the abdomen and pelvis shown 8 mm pancreatic cyst. The differential diagnosis includes pseudocyst, intraductal papillary mucinous neoplasm (IPMN), mucinous cystic neoplasm (MCN), serous cystadenoma, and neuroendocrine tumor. Abdomen MRI without and with contrast is recommended in [address] abdomen pelvis done on 2022 shows no evidence of pancreatic cyst. GI consulted Pending MRCP result Continue pain and nausea control Regular diet Will follow GI recs (2) Essential hypertension: Code(s): I10 - Essential (primary) hypertension Status: Chronic Assessment and Plan: 10/17/23: Blood pressure ranging Continue isosorbide, and propranolol (3) Hypothyroidism: Qualifiers: Hypothyroidism type: acquired Qualified Code(s): E03.9 - Hypothyroidism, unspecified Code(s): E03.9 - Hypothyroidism, unspecified Status: Chronic Assessment and Plan: 10/17/23: Continue Synthroid (4) Anxiety: Code(s): F41.9 - Anxiety disorder, unspecified Status: Chronic Assessment and Plan: 10/17/23: Continue Ativan (5) Parkinsons disease: Qualifiers: Dyskinesia presence: unspecified whether dyskinesia Fluctuating manifestations: unspecified whether manifestations fluctuate Qualified Code(s): G20.A1 - Parkinson's disease without dyskinesia, without mention of fluctuations Code(s): G20 - Parkinson's disease Status: Chronic Assessment and Plan: 10/17/23: Continue carbidopa-levodopa (6) Severe malnutrition: Code(s): E43 - Unspecified severe protein-calorie malnutrition Status: Chronic Assessment and Plan: 10/17/23: BMI 17.1, 41 kg Dietitian consulted Subjective Date/time seen: 10/17/23 14:54 Interval history: Patient was examined before going to the MRCP which was ordered due to the finding in the CT abdomen pelvis which showed 8 mm pancreatic cyst. Patient potassium was low and it has been replaced with 40 mEq. Patient started back on regular diet. Patient's bedside swallow test shows no signs of choking but official swallow test with speech therapist has been ordered. As mentioned in the previous note to the patient and being going through the abdominal pain for past several months and had a EGD colonoscopy and a CT scan which has been consistently showed no significant finding. Patient also reports having 2 stents placed on 2013. Review of Systems Review of Systems: All systems reviewed & are unremarkable except as noted in HPI and below Constitutional: Constitutional: Reports as per HPI and Reports no additional constitutional complaints Eyes: Eyes: Reports as per HPI and Reports no additional eye complaints ENT: Reports system reviewed and no additional complaints, except as documented and Reports as per HPI Cardiovascular: Cardiovascular: Reports as per HPI and Reports no additional cardiovascular complaints Respiratory: Respiratory: Reports as per HPI and Reports no additional respiratory complaints Gastrointestinal: Gastrointestinal: Reports as per HPI and Reports no additional gastrointestinal complaints Genitourinary: Genitourinary: Reports no additional female genitourinary complaints and Reports as per HPI Musculoskeletal: Musculoskeletal: Reports no additional musculoskeletal complaints and Reports as per HPI Integumentary/Breasts: Skin/Breast: Reports system reviewed and no additional complaints, except as docu and Reports as per HPI Neurologic: Reports system reviewed and no additional
[2023-10-17] MEDS: POTASSIUM CHLORIDE 20 MEQ PACKET (FOR LIQUID) 40 MEQ PO (15:20)
--- NOTE | 2023-10-17 18:39 | WPDGICN ---
Assessment and Plan Assessment and plan (1) Abdominal pain: Qualifiers: Abdominal location: generalized Qualified Code(s): R10.84 - Generalized abdominal pain Code(s): R10.9 - Unspecified abdominal pain Status: Acute Assessment and Plan: chronic, no major findings despite extensive GI work up she just had MRCP to look at pancreatic cyst but probably not significant- awaiting final report probably she can follow-up as outpatient advance diet (2) Severe malnutrition: Code(s): E43 - Unspecified severe protein-calorie malnutrition Status: Chronic Assessment and Plan: wonder if also underlying parkinson's playing role encourage to eat pending mrcp (3) Parkinsons disease: Qualifiers: Dyskinesia presence: unspecified whether dyskinesia Fluctuating manifestations: unspecified whether manifestations fluctuate Qualified Code(s): G20.A1 - Parkinson's disease without dyskinesia, without mention of fluctuations Code(s): G20 - Parkinson's disease Status: Chronic (4) Chronic pain: Qualifiers: Chronic pain type: other chronic pain Qualified Code(s): G89.29 - Other chronic pain Code(s): G89.29 - Other chronic pain Status: Acute (5) Essential hypertension: Code(s): I10 - Essential (primary) hypertension Status: Chronic (6) Pancreatic cyst: Code(s): K86.2 - Cyst of pancreas Status: Acute GI Consult Note Consult date/time: 10/17/23 18:39 Reason for consult: chronic abdominal pain, abnormal pancreatic cyst by CT scan HPI: Lorrie Eubanks is a 72 year old female with history of anxiety, coronary artery disease, 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 She reports that her abdominal pain has been gradually worsening over the past year and a half and is now associated with nausea, also weight loss. She had colonoscopy [address] Elliott with polyp. 02/[address] scan then had colonoscopy at [facility], found pancolitis, biopsies showed eosinophilic colitis- apparently given steroid and azathioprine for 52 days but no change in abdominal pain. Currently no diarrhea or blood stools. EGD 05/24/2023 (Dr. Lyle) with normal exam. Bx obtained with no EoE noted. She has been seen in office, prior blood work normal ELLIOT and inflammatory markers, no celiac disease, negative for scleroderma. stool studies negative for parasites. Serum IgE WNLs. Labs showed a normal white blood cell count of 7.6, hemoglobin 11.7, sodium 136, chloride 96. UA was obtained and was negative. She also had a CT of the abdomen and pelvis with contrast that showed no etiology for the patient's symptoms, showed an 8 mm pancreatic cyst last month. Review of Systems Constitutional: Constitutional: Reports weakness Comments: weight loss Eyes: Eyes: Denies blurry vision ENT: Reports Normal hearing present, Denies headache(s) and Denies neck pain Cardiovascular: Cardiovascular: Denies chest pain and Denies dyspnea Respiratory: Respiratory: Denies dyspnea Gastrointestinal: Gastrointestinal: Reports no additional gastrointestinal complaints Genitourinary: Genitourinary: Denies dysuria Musculoskeletal: Musculoskeletal: Denies neck pain Integumentary/Breasts: Skin/Breast: Denies dry skin Neurologic: Reports Normal hearing present Comments: parkinson Psychiatric: Psychiatric: Denies anxiety Endocrine: Endocrine: Denies change in body appearance Hematologic/Lymphatic: Hematologic/Lymphatic: Denies easy bleeding Allergic/Immunologic: Allergic/Immunologic: Denies urticaria PMFSH Past Medical History Medical History (Updated 10/17/23 @ 18:45 by Alvaro Clark MD) Abdominal pain Anxiety Anxiety AVM (arteriovenous malfo
[2023-10-17 21:31] VITALS: BP 179/91; PULSE 70; RESP 14; TEMP 36.2; O2SAT 94
[2023-10-17] MEDS: HYDROcodone/acetaminophen (*CRX) 5-325 MG TABLET 1 TAB PO (21:34)
[2023-10-17] MEDS: ONDANSETRON INJ 4 MG/2 ML VIAL IV PUSH (21:39)
[2023-10-18] MEDS: SODIUM CHLORIDE 0.9% IV 1,000 ML 125 ML IV CONT ×3 (00:30→16:56)
[2023-10-18 05:38] VITALS: PULSE 57
[2023-10-18] MEDS: PROPRANOLOL HCL 40 MG TABLET PO ×2 (05:38→12:26)
[2023-10-18] MEDS: LEVOTHYROXINE SODIUM 25 MCG TABLET PO (05:39)
[2023-10-18 05:48] VITALS: BP 176/80; PULSE 57; RESP 13; TEMP 36.4; O2SAT 93
[2023-10-18 06:54] LABS: Basophils Absolute Auto 0.1 K/mm3 (0.0-0.1); Eosinophils Absolute Auto 0.1 K/mm3 (0-0.3); Hematocrit 34.1 % (37.0-47.0); Hemoglobin 10.7 g/dL (12.0-15.0); Immature Granulocyte Absolute 0.01 K/mm3 (0.00-0.031); Immature Granulocyte Percent A 0.2 % (0-0.5); Lymphocytes Percent Auto 34.5 % (18.3-44.2); Mean Corpuscular HGB Conc 31.4 g/dl (32-36); Mean Corpuscular Hemoglobin 31.1 pg (26-34); Mean Corpuscular Volume 99.1 fl (80-100); Mean Platelet Volume 10.1 fl (7.4-10.4); Monocytes Absolute Auto 0.8 K/mm3 (0.1-0.6); Monocytes Percent Auto 12.5 % (2.6-8.5); Neutrophils Percent Auto 49.8 % (45.5-73.1); Platelet Count Result 282 k/mm3 (150-375); Red Blood Count 3.44 M/mm3 (4.2-5.4); Red Cell Distribution Width 12.9 % (11.5-14.5); White Blood Count 6.1 K/mm3 (4.5-10.0)
[2023-10-18 07:10] LABS: Albumin Level 3.7 g/dL (3.5-5.1); Alkaline Phosphatase 53 U/L (38-126); Anion Gap 9 mmol/L (4-12); Aspartate Amino Transferase 21 U/L (14-36); Bilirubin,Total 0.6 mg/dL (0.2-1.3); Blood Urea Nitrogen 7 mg/dL (7-17); Calcium 7.9 mg/dL (8.4-10.2); Carbon Dioxide 26 mmol/L (22-30); Chloride 101 mmol/L (98-107); Estimated CRCL calculation 48 ml/min; Estimated Glomerular Filt Rate > 60; Glucose 69 mg/dL (65-110); Potassium 3.1 mmol/L (3.4-5.0); Sodium 136 mmol/L (137-145)
[2023-10-18 07:14] LABS: Alanine Aminotransferase < 6 U/L (6-35)
[2023-10-18] MEDS: FAMOTIDINE 20 MG/2 ML VIAL IV PUSH ×2 (08:52→20:04)
[2023-10-18] MEDS: CARBIDOPA/LEVODOPA 25/100 MG TABLET 2 TABLET PO ×4 (08:52→20:03)
[2023-10-18] MEDS: ONDANSETRON INJ 4 MG/2 ML VIAL IV PUSH ×2 (08:52→13:59)
[2023-10-18] MEDS: ISOSORBIDE MONONITRATE 10 MG TABLET PO ×2 (08:52→16:56)
[2023-10-18] MEDS: ASPIRIN 81 MG ENTERIC TABLET PO (08:56)
[2023-10-18 10:09] VITALS: BP 120/60
--- NOTE | 2023-10-18 10:20 | PCSTNOTE ---
Please refer to the Bedside Swallow Evaluation in the EMR. Please note, silent aspiration cannot be ruled out at bedside.
[2023-10-18] MEDS: POTASSIUM CHLORIDE 20 MEQ PACKET (FOR LIQUID) 40 MEQ PO (12:26)
[2023-10-18] MEDS: LORazepam (*CRX) 0.5 MG TABLET PO (13:54)
[2023-10-18] MEDS: HYDROcodone/acetaminophen (*CRX) 5-325 MG TABLET 1 TAB PO ×2 (13:56→20:04)
[2023-10-18 14:20] VITALS: BP 133/75; PULSE 61; RESP 16; TEMP 36.7; O2SAT 94
--- NOTE | 2023-10-18 16:08 | PM.IMPN ---
Progress Note: A&P Assessment and Plan (1) Abdominal pain: Qualifiers: Abdominal location: generalized Qualified Code(s): R10.84 - Generalized abdominal pain Code(s): R10.9 - Unspecified abdominal pain Status: Acute Assessment and Plan: 10/18/23: Reports continued abdominal pain for several months. Per patient EGD, colonoscopy, and CT scan shows no significant finding CT of the abdomen and pelvis shown 8 mm pancreatic cyst. The differential diagnosis includes pseudocyst, intraductal papillary mucinous neoplasm (IPMN), mucinous cystic neoplasm (MCN), serous cystadenoma, and neuroendocrine tumor. Abdomen MRI without and with contrast is recommended in [address] abdomen pelvis done on 2022 shows no evidence of pancreatic cyst. GI consulted MRCP : Chronic mild dilatation of the common duct. No choledocholithiasis.Low-risk 7 mm cyst in the pancreas. The differential diagnosis includes pseudocyst, intraductal papillary mucinous neoplasm (IPMN), mucinous cystic neoplasm (MCN), serous cystadenoma, and neuroendocrine tumor. Abdomen MRI without and with contrast is recommended in 2 years. Continue pain and nausea control Regular diet Will follow GI recs (2) Essential hypertension: Code(s): I10 - Essential (primary) hypertension Status: Chronic Assessment and Plan: 10/18/23: Blood pressure ranging Continue isosorbide, and propranolol (3) Hypothyroidism: Qualifiers: Hypothyroidism type: acquired Qualified Code(s): E03.9 - Hypothyroidism, unspecified Code(s): E03.9 - Hypothyroidism, unspecified Status: Chronic Assessment and Plan: 10/18/23: Continue Synthroid (4) Anxiety: Code(s): F41.9 - Anxiety disorder, unspecified Status: Chronic Assessment and Plan: 10/18/23: Continue Ativan (5) Parkinsons disease: Qualifiers: Dyskinesia presence: unspecified whether dyskinesia Fluctuating manifestations: unspecified whether manifestations fluctuate Qualified Code(s): G20.A1 - Parkinson's disease without dyskinesia, without mention of fluctuations Code(s): G20 - Parkinson's disease Status: Chronic Assessment and Plan: 10/18/23: Continue carbidopa-levodopa (6) Severe malnutrition: Code(s): E43 - Unspecified severe protein-calorie malnutrition Status: Chronic Assessment and Plan: 10/18/23: BMI 17.1, 41 kg Dietitian consulted Subjective Date/time seen: 10/18/23 16:08 Interval history: Patient still complains of abdominal pain. Patient underwent MRCP yesterday. In regards to the pancreatic cyst GI recommend to follow up as outpatient. Review of Systems Review of Systems: All systems reviewed & are unremarkable except as noted in HPI and below Constitutional: Constitutional: Reports as per HPI and Reports no additional constitutional complaints Eyes: Eyes: Reports as per HPI and Reports no additional eye complaints ENT: Reports system reviewed and no additional complaints, except as documented and Reports as per HPI Cardiovascular: Cardiovascular: Reports as per HPI and Reports no additional cardiovascular complaints Respiratory: Respiratory: Reports as per HPI and Reports no additional respiratory complaints Gastrointestinal: Gastrointestinal: Reports as per HPI and Reports no additional gastrointestinal complaints Genitourinary: Genitourinary: Reports no additional female genitourinary complaints and Reports as per HPI Musculoskeletal: Musculoskeletal: Reports no additional musculoskeletal complaints and Reports as per HPI Integumentary/Breasts: Skin/Breast: Reports system reviewed and no additional complaints, except as docu and Reports as per HPI Neurologic: Reports system reviewed and no additional complaints, except as documented and Reports as per HPI Psychiatric: Psychiatric: Reports no additional psychiatric complaints and Reports as per HPI Ex
--- NOTE | 2023-10-18 16:56 | WPDGIPROGNO ---
Progress Note: A&P Assessment and Plan (1) Pancreatic cyst: Code(s): K86.2 - Cyst of pancreas Status: Acute Assessment and Plan: 7 mm, low risk recommend to repeat mri in 2 years, we can also always refer for EUS of pancreas as outpatient (2) Abdominal pain: Qualifiers: Abdominal location: generalized Qualified Code(s): R10.84 - Generalized abdominal pain Code(s): R10.9 - Unspecified abdominal pain Status: Acute Assessment and Plan: chronic, no major changes she had egd and imaging tolerating diet will add dicyclomine prn hopefully home tomorrow (3) Parkinsons disease: Qualifiers: Dyskinesia presence: unspecified whether dyskinesia Fluctuating manifestations: unspecified whether manifestations fluctuate Qualified Code(s): G20.A1 - Parkinson's disease without dyskinesia, without mention of fluctuations Code(s): G20 - Parkinson's disease Status: Chronic (4) Hypokalemia: Code(s): E87.6 - Hypokalemia Status: Acute Assessment and Plan: treated Subjective Date/time seen: 10/18/23 16:56 Interval history: she has chronic pain for months, no major changes, intermittent and lower abdomen sometimes after eating reviewed MRCP Review of Systems Review of Systems: All systems reviewed & are unremarkable except as noted in HPI and below Exam Const: General: comfortable and no acute distress Other: chronically ill appearing HENMT: Face/Nose/Sinus: Normal nares present Eyes: General: appearance normal, both eyes and all related structures Neck: Neck: supple Resp: Auscultation: clear to auscultation bilaterally Cardio: Rate: regular rate Rhythm: regular rhythm GI: Inspection: non-distended GI Palp: Yes Soft to palpation and No Tenderness to palpation present (GI) Auscultation: normal bowel sounds Skin: General skin exam: normal color Neuro: Speech: normal speech Other: + tremors Extrem: General: normal to inspection Psych: Mental Status: mental status grossly normal Objective Data Vital Signs Vital Signs: Vital Signs - 24 hr 10/17/23 21:31 10/17/23 20:00 10/18/23 05:38 Temperature 97.2 F L Pulse Rate 70 57 L Respiratory Rate 14 Blood Pressure 179/91 H Pulse Oximetry 94 Oxygen Delivery Room Air 10/18/23 05:48 10/18/23 10:09 10/18/23 14:20 Temperature 97.5 F L 98.1 F Pulse Rate 57 L 61 Respiratory Rate 13 16 Blood Pressure 176/80 H 120/60 133/75 Pulse Oximetry 93 94 Oxygen Delivery Intake/Output Intake/Output: Intake & Output 10/15/23 10/16/23 10/17/23 10/18/23 23:59 23:59 23:59 23:59 Intake Total 2446.3 1462 Output Total 800 Balance 1646.3 1462 Meds/Results Medications: Active Medications Generic Name Dose Route Start Last Admin Trade Name Freq PRN Reason Stop Dose Admin Acetaminophen 650 mg 10/16/23 17:15 Acetaminophen 325 Mg Tablet PO Q4H PRN Mild Pain (1-3) or Fever Hydrocodone Bitart/Acetaminophen 1 tab 10/16/23 18:09 10/18/23 13:56 Hydrocodone/Acetaminophen (*Crx) 5-325 Mg Tablet PO 1 tab Q4H PRN Administration Moderate Pain (4-6) Amitriptyline HCl 10 mg 10/16/23 23:50 10/17/23 21:35 Amitriptyline Hcl 10 Mg Tablet PO 10 mg QHS RICHARD Administration Aspirin 81 mg 10/17/23 09:00 10/18/23 08:56 Aspirin 81 Mg Enteric Tablet PO 81 mg DAILY RICHARD Administration Carbidopa/Levodopa 2 tablet 10/16/23 23:50 10/18/23 12:26 Carbidopa/Levodopa 25/100 Mg Tablet PO 2 tablet QID RICHARD Administration Dicyclomine HCl 10 mg 10/18/23 16:55 Dicyclomine Hcl 10 Mg Capsule PO Q8H PRN Abdominal Cramping Famotidine 20 mg 10/16/23 21:00 10/18/23 08:52 Famotidine 20 Mg/2 Ml Vial IV PUSH 20 mg Q12HR RICHARD Administration Sodium Chloride 1,000 mls @ 125 mls/hr 10/16/23 17:15 10/18/23 08:53 Normal Saline Iv IV CONT 125 mls/hr .Q8H RICHARD Administration I
[2023-10-18] MEDS: AMITRIPTYLINE HCL 10 MG TABLET PO (20:04)
[2023-10-18 21:25] VITALS: BP 153/72; PULSE 52; RESP 12; TEMP 36.4; O2SAT 96
[2023-10-18 22:26] VITALS: O2SAT 96
[2023-10-19] MEDS: HYDROcodone/acetaminophen (*CRX) 5-325 MG TABLET 1 TAB PO (03:32)
[2023-10-19] MEDS: LORazepam (*CRX) 0.5 MG TABLET PO (03:32)
[2023-10-19] MEDS: SODIUM CHLORIDE 0.9% IV 1,000 ML 125 ML IV CONT (03:44)
[2023-10-19 06:00] VITALS: BP 169/80; PULSE 50; RESP 14; TEMP 37.3; O2SAT 97
[2023-10-19 07:23] LABS: Basophils Absolute Auto 0.1 K/mm3 (0.0-0.1); Basophils Percent Auto 0.8 % (0.2-1.2); Eosinophils Absolute Auto 0.2 K/mm3 (0-0.3); Eosinophils Percent Auto 2.2 % (0-4.4); Hemoglobin 11.2 g/dL (12.0-15.0); Immature Granulocyte Absolute 0.02 K/mm3 (0.00-0.031); Immature Granulocyte Percent A 0.3 % (0-0.5); Lymphocytes Absolute Auto 1.99 K/mm3 (0.9-3.2); Lymphocytes Percent Auto 27.9 % (18.3-44.2); Mean Corpuscular Hemoglobin 31.2 pg (26-34); Mean Corpuscular Volume 97.5 fl (80-100); Monocytes Absolute Auto 0.9 K/mm3 (0.1-0.6); Monocytes Percent Auto 12.4 % (2.6-8.5); Neutrophils Percent Auto 56.4 % (45.5-73.1); Platelet Count Result 275 k/mm3 (150-375); Red Blood Count 3.59 M/mm3 (4.2-5.4); Red Cell Distribution Width 12.9 % (11.5-14.5); White Blood Count 7.1 K/mm3 (4.5-10.0)
[2023-10-19] MEDS: LEVOTHYROXINE SODIUM 25 MCG TABLET PO (07:34)
[2023-10-19 07:48] LABS: Albumin Level 3.8 g/dL (3.5-5.1); Alkaline Phosphatase 52 U/L (38-126); Anion Gap 8 mmol/L (4-12); Aspartate Amino Transferase 23 U/L (14-36); Bilirubin,Total 0.6 mg/dL (0.2-1.3); Blood Urea Nitrogen 4 mg/dL (7-17); Calcium 8.4 mg/dL (8.4-10.2); Carbon Dioxide 31 mmol/L (22-30); Chloride 99 mmol/L (98-107); Estimated CRCL calculation 48 ml/min; Estimated Glomerular Filt Rate > 60; Glucose 84 mg/dL (65-110); Potassium 3.5 mmol/L (3.4-5.0); Sodium 138 mmol/L (137-145)
[2023-10-19 07:57] LABS: Alanine Aminotransferase < 6 U/L (6-35)
[2023-10-19 08:29] VITALS: BP 181/86; PULSE 53; RESP 15; TEMP 36.9; O2SAT 98
[2023-10-19 08:38] VITALS: BP 106/80
[2023-10-19 09:51] VITALS: PULSE 48
[2023-10-19] MEDS: ISOSORBIDE MONONITRATE 10 MG TABLET PO (09:51)
[2023-10-19] MEDS: ASPIRIN 81 MG ENTERIC TABLET PO (09:51)
[2023-10-19] MEDS: FAMOTIDINE 20 MG/2 ML VIAL IV PUSH (09:51)
[2023-10-19] MEDS: CARBIDOPA/LEVODOPA 25/100 MG TABLET 2 TABLET PO ×2 (09:51→12:31)
--- NOTE | 2023-10-19 10:34 | PCNFU ---
Nutrition Follow-Up Complete: Moderate protein calorie malnutrition related to inadequate energy intake as evidenced by low BMI of 17.7, suboptimal po intake, and NFPE findings for subcutaneous fat loss and muscle wasting. Goal:Diet advanced and tolerated PO intake 75% of meals and supplements Pt current nutrition is regular, Ensure Enlive BID. Nutrition recommendation: continue with current plan of care Last recorded weight is 41 kg. Bowel Motility:+BM 10/17 Labs Reviewed: Hgb:11.2, HCT:35, BUN:4, Cr:0.6 Meds Noted: zofran Skin: No skin issues noted Additional Notes: Pt diet advanced to regular, Ensure Enlive BID in place, intake improved to 75%. Encourage good po intake. Agree with orders. Monitor diet orders, intake, tolerance, wt, labs. Follow up in 5 days.
--- NOTE | 2023-10-19 13:09 | PM.DS ---
DS: Admitting Diagnosis Discharge Date 10/19/2023 Admitting Diagnosis Abdominal pain DS: Summary Hospital Course Hospital Course: This is a 72-year-old female with a significant past medical history of anxiety, AVM of the colon, B12 deficiency, coronary artery disease, eosinophilic colitis, hypothyroidism, osteoporosis who presented to the hospital with abdominal pain over the last several months. She states that she has been worked up quite a bit for this abdominal pain in the past including EGD, colonoscopies, CT scan and has consistently a negative workup. She is a patient Dr. Judd and had an EGD done on 05/24/2023 which shown normal EGD with normal mucosa throughout the esophagus stomach and duodenum, random biopsies were taken from the distal esophagus, body of the stomach, antrum and distal duodenum with no obvious explanation for abdominal pain. Biopsies were negative for eosinophilic esophagitis. Patient states that her pain is all over in the abdomen and describes it as a gas or pressure. She denies any fever, chills, nausea, vomiting, diarrhea, abdominal pain, chest pain, shortness a breath. She does state that she has no issues with swallowing, and is able to eat and drink without any issues. She did have a significant weight loss and dropped down to about 80 lb however has gained some of that weight back. Workup in the hospital include labs which showed a normal white blood cell count of 7.6, hemoglobin 11.7, sodium 136, chloride 96. UA was obtained and was negative. She also had a CT of the abdomen and pelvis with contrast that showed no etiology for the patient's symptoms, showed an 8 mm pancreatic cyst with recommendations for another abdominal MRI with and without contrast in 2 years. MRCP performed shows Chronic mild dilatation of the common duct. No choledocholithiasis.Low-risk 7 mm cyst in the pancreas. The differential diagnosis includes pseudocyst, intraductal papillary mucinous neoplasm (IPMN), mucinous cystic neoplasm (MCN), serous cystadenoma, and neuroendocrine tumor. Abdomen MRI without and with contrast is recommended in 2 years. Discussed with the central processing technician Dr. Judd. Who agrees to discharge the patient and follow with him in a week or 2. Patient is able to tolerate the food without any nausea vomiting. Status at Discharge Cognitive/behavioral status at discharge: Stable Time Spent with Patient Time attestation: Total time spent providing and/or coordinating discharge services: 45 minutes Exam Narrative: General: In no acute distress, well nourished Head: atraumatic, no encephalopathy Eyes: EOMI, PERRLA, sclera clear ENT: moist mucous membranes, nasal passages clear Neck: supple, no JVD, no adenopathy, trachea midline Cardiac: Normal S1 and S2. RRR, No murmur, gallops or friction rubs, peripheral pulses intact. Respiratory: Lungs clear to auscultation, no adventitious lung sounds, currently on room air Gastrointestinal: Flat, non-distended, non-tender, normoactive bowel sounds. : voiding without difficulty. Extremities: moves all extremities well, no edema, good ROM, strength 5/5 Skin: clean, dry, intact. No wounds or lesions. Neuro: Alert and oriented x4, cranial nerves intact, no neuro deficits. Psych: normal mood, normal affect, interactive DS: Data Data Completed and Pending Labs on day of discharge: Labs from last 24 hours 10/19/23 06:51 WBC 7.1 RBC 3.59 L Hgb 11.2 L Hct 35.0 L MCV 97.5 MCH 31.2 MCHC 32.0 RDW 12.9 Plt Count 275 MPV 10.0 Immature Gran % (Auto) 0.3 Neut % (Auto) 56.4 Lymph % (Auto) 27.9 Nobles % (Auto) 12.4 H Eos % (Auto) 2.2 Baso % (Auto) 0.8 Lymph # (Auto) 1.99 Nobles # (Auto) 0.9 H Eos # (Auto) 0.2 Baso # (Auto) 0.1 Abs Immat Gran (auto) 0.02 Absolute Neuts (auto) 4.0 Absolute Nucleated RBC 0.000 Nucleated RBC % 0.0 Sodium 138 Potassium 3.5 Chloride 99 Carbon Dioxide 31 H Anion Gap 8 BUN 4 L Creatinine 0.6
[2023-10-19 13:24] VITALS: BP 99/55; PULSE 61; RESP 14; TEMP 36.6; O2SAT 97
--- NOTE | 2023-10-19 17:14 | WPDGIPROGNO ---
Progress Note: A&P Assessment and Plan (1) Pancreatic cyst: Code(s): K86.2 - Cyst of pancreas Status: Acute Assessment and Plan: 7 mm cyst, low risk recommend to repeat mri in 2 years, we can also always refer for EUS of pancreas as outpatient this is not causing pain follow-up in office (2) Abdominal pain: Qualifiers: Abdominal location: generalized Qualified Code(s): R10.84 - Generalized abdominal pain Code(s): R10.9 - Unspecified abdominal pain Status: Acute Assessment and Plan: chronic, no major changes she already had egd and imaging tolerating diet will add dicyclomine prn ok to go home (3) Parkinsons disease: Qualifiers: Dyskinesia presence: unspecified whether dyskinesia Fluctuating manifestations: unspecified whether manifestations fluctuate Qualified Code(s): G20.A1 - Parkinson's disease without dyskinesia, without mention of fluctuations Code(s): G20 - Parkinson's disease Status: Chronic (4) Hypokalemia: Code(s): E87.6 - Hypokalemia Status: Acute Assessment and Plan: treated Subjective Date/time seen: 10/19/23 13:20 Interval history: no changes, tolerating diet she is going home Review of Systems Review of Systems: All systems reviewed & are unremarkable except as noted in HPI and below Exam Const: General: comfortable and no acute distress Other: chronically ill appearing HENMT: Face/Nose/Sinus: Normal nares present Eyes: General: appearance normal, both eyes and all related structures Neck: Neck: supple Resp: Auscultation: clear to auscultation bilaterally Cardio: Rate: regular rate Rhythm: regular rhythm GI: Inspection: non-distended GI Palp: Yes Soft to palpation and No Tenderness to palpation present (GI) Auscultation: normal bowel sounds Skin: General skin exam: normal color Neuro: Speech: normal speech Other: + tremors Extrem: General: normal to inspection Psych: Mental Status: mental status grossly normal Objective Data Vital Signs Vital Signs: Vital Signs - 24 hr 10/18/23 21:25 10/18/23 20:00 10/18/23 22:26 Temperature 97.5 F L Pulse Rate 52 L Respiratory Rate 12 Blood Pressure 153/72 H Pulse Oximetry 96 96 Oxygen Delivery Room Air Room Air 10/19/23 06:00 10/19/23 08:29 10/19/23 08:38 Temperature 99.2 F 98.4 F Pulse Rate 50 L 53 L Respiratory Rate 14 15 Blood Pressure 169/80 H 181/86 H 106/80 Pulse Oximetry 97 98 Oxygen Delivery 10/19/23 09:51 10/19/23 13:24 Temperature 98 F Pulse Rate 48 L 61 Respiratory Rate 14 Blood Pressure 99/55 L Pulse Oximetry 97 Oxygen Delivery Intake/Output Intake/Output: Intake & Output 10/16/23 10/17/23 10/18/23 10/19/23 23:59 23:59 23:59 23:59 Intake Total 2446.3 3302 1432 Output Total 800 Balance 1646.3 3302 1432 Meds/Results Radiology Results: ITS Impressions Abdomen/Pelvis CT 10/16/23 19:54 IMPRESSION: 1. No etiology for the patient's symptoms. 2. 8 mm pancreatic cyst. The differential diagnosis includes pseudocyst, intraductal papillary mucinous neoplasm (IPMN), mucinous cystic neoplasm (MCN), serous cystadenoma, and neuroendocrine tumor. Abdomen MRI without and with contrast is recommended in 2 years. MRCP 10/17/23 15:29 IMPRESSION: 1. Chronic mild dilatation of the common duct. No choledocholithiasis. 2. Low-risk 7 mm cyst in the pancreas. The differential diagnosis includes pseudocyst, intraductal papillary mucinous neoplasm (IPMN), mucinous cystic neoplasm (MCN), serous cystadenoma, and neuroendocrine tumor. Abdomen MRI without and with contrast is recommended in 2 years. Labs Labs: Laboratory Results - last 24 hr 10/19/23 06:51 WBC 7.1 RBC 3.59 L Hgb 11.2 L Hct 35.0 L MCV 97.5 MCH 31.2 MCHC 32.0 RDW 12.9 Plt Count 275 MPV 10.0 Immature Gran % (Auto) 0.3 Neut % (Auto) 56.4 Lymph % (Auto) 27.9 M
== END 2023-10-19 14:20 | disposition home or self-care (01) | DRG 391 ==
LOC: ANHED 17:14 → ANH3MEDSUR 19:06
PROVIDERS: Nurse Practitioner Acute Care; Physician Assistant; Admitting Provider Internal Medicine; Emergency Provider Family Medicine; PCP Nurse Practitioner Family; Visit Provider General Practice
DX: R10.84 Generalized abdominal pain (principal); E43 Unspecified severe protein-calorie malnutrition; Z68.1 Body mass index [BMI] 19.9 or less, adult; K86.2 Cyst of pancreas; I25.10 Atherosclerotic heart disease of native coronary artery without angina pectoris; K55.20 Angiodysplasia of colon without hemorrhage; E87.6 Hypokalemia; E53.8 Deficiency of other specified B group vitamins; G20.A1 Parkinson's disease without dyskinesia, without mention of fluctuations; G89.29 Other chronic pain; M81.0 Age-related osteoporosis without current pathological fracture; F41.9 Anxiety disorder, unspecified; Z79.82 Long term (current) use of aspirin; Z86.010 Personal history of colon polyps; Z95.5 Presence of coronary angioplasty implant and graft
CPT/HCPCS: 36415; 74177; 74183; 76376; 80053; 81001; 83690; 85025; 92610; 96361; 96374; 96375; 96376; 99285; A9270; A9577; G0378; J2270; J2405; J7030; Q9967

== ENCOUNTER 2023-10-25 18:07 | Emergency (ER) | payer MEDICARE, OTHER, SELFPAY ==
[2023-10-25] VITALS (7 sets, daily range): BP systolic 129–169; BP diastolic 77–88; PULSE 63–74; RESP 15–19; TEMP 36.7–37; O2SAT 92–100
--- NOTE | ~2023-10-25 | CT_ITS ---
EXAMINATION: CT brain wo con DATE: 10/25/2023 19:49 INDICATION: Dizziness. TECHNIQUE: Computed tomography (CT) of the head was performed without intravenous contrast. The mA wa s adjusted according to patient size. Iterative reconstruction technique was employed. The dose-lengt h product was 681.00 mGy-cm. COMPARISON: Head CT 10/19/2020 FINDINGS: There are scattered areas of low attenuation in the cerebral white matter, which is within normal limits for the patient's age. There is no intracranial hemorrhage, acute infarction, or abnor mal intracranial mass lesion. The ventricles are normal in size. There is mucosal thickening in the p aranasal sinuses. There are likely changes of ocular lens replacement surgeries. The mastoid air cell s are normal. IMPRESSION: 1. Normal aging brain. Reviewed, dictated and finalized at location A. IMPRESSION: 1. Normal aging brain.
--- NOTE | ~2023-10-25 | XR_ITS ---
EXAMINATION: XR shoulder RT min 2V DATE: 10/25/2023 18:38 INDICATION: Right shoulder injury. TECHNIQUE: 2 views of right shoulder were obtained. COMPARISON: None. FINDINGS: There is an oblique fracture of surgical neck of proximal right humerus. The distal fractur e fragment demonstrates impaction. The glenohumeral joint is not well profiled. There is mild acromio clavicular joint osteoarthritis. IMPRESSION: 1. Two-part fracture of proximal right humerus. Consider shoulder radiographs. Reviewed, dictated and finalized at location A.
[2023-10-25] MEDS: HYDROmorphone HCL INJ (*CRX) 1 MG/ML SYR IV PUSH (18:26)
[2023-10-25] MEDS: CYCLOBENZAPRINE HCL 10 MG TABLET PO (18:26)
--- NOTE | 2023-10-25 18:59 | ECG_ITS ---
Test Date: 2023-10-25 19:25:22 Measurements Intervals [place] Rate: 64 P: 67 NC: 153 QRS: 26 QRSD: 88 T: 48 QT: 415 QTc: 431 Interpretive Statements SINUS RHYTHM BORDERLINE ST-T WAVE ABNORMALITY- ANT/INF LEADS BASELINE ARTIFACT- I, II, III, AVR, AVL, AVF, V1-V6 BORDERLINE ECG No previous ECG available for comparison Electronically Signed On 10-25-2023 19:57:31 CDT by Arjun Nunez D.O.
--- NOTE | 2023-10-25 19:11 | ED.FALL ---
HPI - Fall General Chief Complaint: Fall Stated Complaint: fall - shoulder injury Time Seen by Provider: 10/25/23 18:25 History of Present Illness HPI Narrative: PT is a 72-year-old female who presents to the ER with complaints of a fall prior to arrival. She reports she was laying in the bed, got up and felt dizzy. Pt denies LOC, but reports she may have hit her head. She has a history of Parkinson's disease Pt denies chest pain, extremity swelling, shortness of breath or numbness/tingling/weakness. She reports she is able to move her hand/wrist/elbow on her R upper extremity. Related Data Home Medications Medication Instructions Recorded Confirmed aspirin 81 mg tablet,delayed 81 mg PO DAILY 12/24/18 10/16/23 release (Destiny Low Dose Aspirin) isosorbide mononitrate 10 mg tablet 10 mg PO BID 12/16/21 10/16/23 naltrexone 4.5 mg capsule 4.5 mg PO DAILY 06/22/23 10/16/23 carbidopa 25 mg-levodopa 100 mg 2 tablet PO QID 10/16/23 10/16/23 tablet Allergies Allergy/AdvReac Type Severity Reaction Status Date / Time ropinirole Allergy Intermediate Rash and Verified 10/16/23 19:19 passing out Xuxnuhk-WZH-BhP Reductase Allergy Intermediate Unknown Verified 10/16/23 19:19 Inhibitor [Njxkoaa-Kjm-Hpm Reductase Inhibitor] cefdinir AdvReac Severe gastric Verified 10/16/23 19:19 upset ticagrelor AdvReac Severe ABD Verified 10/16/23 19:19 CRAMPING PAIN N/V codeine AdvReac Mild N/V Verified 10/16/23 19:19 paroxetine AdvReac Mild PASSED OUT Verified 10/16/23 19:19 Review of Systems Review of Systems: All systems reviewed & are unremarkable except as noted in HPI and below PMFSH Past Medical History Medical History Abdominal pain Anxiety Anxiety AVM (arteriovenous malformation) of colon B12 deficiency CAD (coronary artery disease) Chronic pain Chronic pain syndrome Eosinophilic colitis Hx of adenomatous colonic polyps Hypokalemia Hypothyroid TSH 10/19/2020 within normal limits Hypothyroidism Non-cardiac chest pain Osteoporosis Pancreatic cyst Surgical History Surgical History H/O cardiac catheterization History of colonoscopy with polypectomy History of heart artery stent (~2013) X2 History of repair of right rotator cuff (~2014) History of toe surgery Hx of appendectomy Hx of right inguinal hernia repair Previous back surgery (~2015) Status post cataract extraction of both eyes with insertion of intraocular lens Family History Family History Father Family history of lung cancer Hypertension Mother Over 80 years old Hypertension Social History Social History Social History: He lives in [place] with her of 26 years. 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 She has 1 son who is healthy. She is a lifelong nonsmoker and does not drink alcohol or use illicit substances. Code status: Full code Primary care provider: Angela Segovia NP Surrogate decision maker: Declined SDOH 10/01/23 Smoking status: Never smoker Second hand tobacco smoke exposure: Yes Alcohol intake: never Substance use: never Substance use type: does not use Do You Feel Safe in your Home?: Yes Lack of Transportation: No Lack of Food: Never True Current Housing: I Have Housing Concerned About Future Housing: No Difficulty Paying Gas/Electric Bills: No Difficulty Paying for Meds: No Currently Unemployed: No Education: High School Diploma/GED Difficulty w/ Childcare or Family Care: No Living arrangements: alone Spiritual care concerns: No Exam Narrative: GENERAL: Well-appearing, poorly-nourished, but in no acute distress. HEENT: Head normocephalic, atraumatic. Eyes pupils equal round, n
[2023-10-25 19:31] LABS: Basophils Absolute Auto 0.1 K/mm3 (0.0-0.1); Basophils Percent Auto 0.6 % (0.2-1.2); Eosinophils Percent Auto 0.5 % (0-4.4); Hematocrit 33.9 % (37.0-47.0); Hemoglobin 11.1 g/dL (12.0-15.0); Immature Granulocyte Absolute 0.03 K/mm3 (0.00-0.031); Immature Granulocyte Percent A 0.4 % (0-0.5); Lymphocytes Absolute Auto 1.41 K/mm3 (0.9-3.2); Lymphocytes Percent Auto 17.2 % (18.3-44.2); Mean Corpuscular HGB Conc 32.7 g/dl (32-36); Mean Corpuscular Hemoglobin 31.4 pg (26-34); Mean Corpuscular Volume 95.8 fl (80-100); Mean Platelet Volume 9.9 fl (7.4-10.4); Monocytes Absolute Auto 0.9 K/mm3 (0.1-0.6); Monocytes Percent Auto 10.4 % (2.6-8.5); Neutrophils Absolute Auto 5.8 K/mm3 (1.3-6.7); Neutrophils Percent Auto 70.9 % (45.5-73.1); Platelet Count Result 316 k/mm3 (150-375); Red Blood Count 3.54 M/mm3 (4.2-5.4); Red Cell Distribution Width 12.9 % (11.5-14.5); White Blood Count 8.2 K/mm3 (4.5-10.0)
[2023-10-25] MEDS: SODIUM CHLORIDE 0.9% IV 1,000 ML 999 ML IV CONT (19:31)
[2023-10-25] MEDS: ONDANSETRON INJ 4 MG/2 ML VIAL IV PUSH (19:32)
[2023-10-25] MEDS: HYDROmorphone HCL INJ (*CRX) 1 MG/ML SYR 0.5 MG IV PUSH ×2 (19:33→23:41)
[2023-10-25 19:40] LABS: Albumin Level 3.9 g/dL (3.5-5.1); Alkaline Phosphatase 58 U/L (38-126); Anion Gap 6 mmol/L (4-12); Aspartate Amino Transferase 27 U/L (14-36); Bilirubin,Total 0.9 mg/dL (0.2-1.3); Blood Urea Nitrogen 18 mg/dL (7-17); Calcium 9.1 mg/dL (8.4-10.2); Carbon Dioxide 32 mmol/L (22-30); Chloride 96 mmol/L (98-107); Estimated CRCL calculation 44 ml/min; Estimated Glomerular Filt Rate > 60; Glucose 105 mg/dL (65-110); Potassium 3.4 mmol/L (3.4-5.0); Sodium 134 mmol/L (137-145)
[2023-10-25] MEDS: LORazepam INJ (*CRX) 2 MG/ML VIAL 0.5 MG IV PUSH (19:51)
[2023-10-25 19:56] LABS: Alanine Aminotransferase < 6 U/L (6-35)
--- NOTE | 2023-10-25 23:12 | PC.NURSE ---
multiple attempts to contact spouse or son to pick patient up. No answer on either phone line. Multiple messages left for spouse, son phone does not leave an option to leave a message.
--- NOTE | 2023-10-26 00:16 | PC.NURSE ---
pt refused to come to pt room 6 to receive discharge packet and information. This rn wheeled pt to waiting room and attempted to give discharge instructions while placing patient in the truck. Pt continuously stating i just dont understand why you cant keep her, I dont understand why you have to send her home.
[2023-10-26 00:19] VITALS: BP 117/70; PULSE 68; RESP 16; TEMP 36.6; O2SAT 98
== END 2023-10-26 00:21 | disposition home or self-care (01) ==
PROVIDERS: Emergency Provider Registered Nurse; PCP Nurse Practitioner Family
DX: S42.201A Unspecified fracture of upper end of right humerus, initial encounter for closed fracture (principal); W19.XXXA Unspecified fall, initial encounter; Z79.82 Long term (current) use of aspirin; F41.9 Anxiety disorder, unspecified; I25.10 Atherosclerotic heart disease of native coronary artery without angina pectoris; E53.8 Deficiency of other specified B group vitamins; E03.9 Hypothyroidism, unspecified; M81.0 Age-related osteoporosis without current pathological fracture
CPT/HCPCS: 36415; 70450; 73030; 80053; 85025; 93005; 96361; 96374; 96375; 96376; 99284; A9270; J1170; J2060; J2405; J7030

== ENCOUNTER 2024-04-06 06:47 | Outpatient (CLI) | payer MEDICARE, OTHER, SELFPAY ==
--- OUTSIDE RECORDS SUMMARY | 2024-04-06 06:53 | XMS_ITS | Clinical Summary ---
Author Organization [facility] Address [address] [place] [address] Care Team Providers Care Bi Developer Name Role Phone Miller Betancourt MD Unavailable [phone] Angela Segovia APRN-VACATION PLANNER Primary Care Provider Source Comments [facility],non-owned Affiliates and Associated Physician Practices is amultiple site organization consisting of ambulatory clinics and hospital sitesin [place], [place], [place] and [place]. This disclosure is being madepursuant to the Care Everywhere program and may not contain all information available regarding this patient. Last updated 17.[facility] Allergies Active Allergy Reactions Criticality Noted Date Comments Codeine Nausea and/or Vomiting Paroxetine Other Syncope Ranexa Other 10/30/2017 Shaking, malaise Hmg-Coa-R Inhibitors Myalgias 09/03/2014 Multiple statins tried Diazepam Other Burning all over Medications * Be aware that medications may not be up to date on this document. Alwaysverify current medications with the patient. Medication Sig Dispensed Refills Start Date End Date Status busPIRone (BUSPAR) 5 MG tablet Take 5 mg by mouth as needed Active levothyroxine (SYNTHROID) 25 MCG tablet Take 25 mcg by mouth daily before breakfast Active aspirin EC (ECOTRIN) 81 MG tablet Take 81 mg by mouth once daily Active polyethylene glycol 3350 (MIRALAX) packet Take 17 g by mouth once daily Active LORazepam (ATIVAN) 0.5 MG tablet Take 0.5 mg by mouth as needed for Anxiety Active Cyanocobalamin (B-12) 1000 MCG TABS Take 1,000 mcg by mouth once daily Active naltrexone (REVIA) 4.5 MG compd capsule Take 1 capsule by mouth at bedtime Active propranolol (INDERAL) 80 MG tablet Take 0.5 tablets by mouth 2 times daily 30 tablet 5 02/06/2020 Active Active Problems Patient Care Coordination No te Formatting of this note migh t be different from the original. Stator Plate Washer - Dr. Miller Betancourt Problem Noted Date Diagnosed Date Upper back pain 03/02/2017 Statin intolerance 03/03/2015 Coronary artery disease invo lving [place] coronary artery of [place] heart without angina pectoris 12/15/2013 Overview (06/25/2019): Cath 11/2013 -- Presented with new accelerating angina. Mod 40-50% LCx lesion. Critical, calcified 90% in a small but technically co-dominant mid RCA lesion. More inferior wall supply from the Left Circumflex system. Mid RCA stented with overlapping 2.5 X 24 and 2.5 X 12mm Promus drug-eluting stents. EF 60%. Stress Echo 09/2014 -- Walked 6:09 on TM. Clinically and echo negative. EKG uninterpretable. Stress Echo 10/2016 -- Baseline EF 60%. Walked 5.5 min on TM. Clinically + for chest and back pain. EKG + for 1 mm horizontal to slightly downsloping ST depression. Echo normal. Cath 10/2016 - 80 % stenosis of small OM1, patent RCA stent, mild plaquing elsewhere, LVEF 65%, LVEDP 14 mmHg Pharm SPECT Stress 06/2019 - Clinically equivocal. EKG negative. Images normal. EF > 70%. S/P coronary artery stent placement 12/15/2013 Family history of cardiovascular disease 014 Overview (02/24/2020): ABIs 02/2020 - Normal ABIs (1.15 R and 1.17 L rest, 1.00 R and 0.97 L exercise) with bilateral biphasic to triphasic PVRs. Family History Medical History Relation Name Comments Heart Disease Brother Cancer Father Heart Disease Sister 1 Hypertension Sister 2 Diabetes Sister 3 Relation Name Status Comments Brother Father Sister 1 Sister 2 Sister 3 Social History Tobacco Use Types Packs/Day Years Used Date Smoking Tobacco: Never Alcohol Use Standard Drinks/Week Comments No 0 (1 standard drink = 0.6 oz pur e alcohol) Sex and Gender Information Value Date Recorded Sex Assigned at Not on file Gender Identity Not on file Sexual Orientation Not on file Last Filed Vital Signs Vital Sign Reading Time Taken Comments Blood Pressure 160/93 04/03/2019 2:02 PM HOSPITAL LIBRARIAN Pulse 51 04/03/2019 2:02 PM HOSPITAL LIBRARIAN Temperature - - Respiratory Rate - - Oxygen Saturation 97% 03/15/2018 10:06 AM HOSPITAL LIBRARIAN Inhaled Oxygen Concentration - - Weight 43.5 kg (96 lb) 04/03/2019 2:02 PM HOSPITAL LIBRARIAN Height 154.9 cm (5' 1 ) 04/03/2019 2:02 PM HOSPITAL LIBRARIAN Body Mass Index 18.14 04/03/2019 2:02 PM HOSPITAL LIBRARIAN Plan of Treatment Health Maintenance Due Date Last Done Comments BONE DENSITY TESTING 1950 COLOGUARD (AGES 45-75) - COLON CA SCREENING 1952 COLON MONITORING 1952 COLONOSCOPY - COLON CA SCREENING 1952 CT COLONOGRAPHY - COLON CA SCREENING 1950 Colorectal Cancer Screening 1952 FIT - COLON CA SCREENING 1952 FLEX SIG - COLON CA SCREENING 1950 MAMMOGRAM 1950 MEDICARE AWV 12 MONTHS 1950 HEPATITIS C SCREENING 12/17/1970 DTAP/TDAP/TD VACCINES (1 - Tdap) 12/22/1971 PNEUMOCOCCAL VACCINE 50+ (1 of 1 - PCV) 2002 ZOSTER VACCINE (1 of 2) 2002 COVID-19 VACCINE (1 - season) 2023 INFLUENZA VACCINE (#1) 2023 8, 10/24/2016, 11/02/2015, Additional history exists DEPRESSION SCREENING 02/21/2024 Respiratory Syncytial Virus (RSV) Vaccine Pt: or over 60 yrs (1 - 1-dose 75+ series) 12/22/2027 HEPATITIS B VACCINE Aged Out No longe r eligible based on patient's age to complete this topic HIB VACCINE Aged Out No longer eligi ble based on patient's age to complete this topic HPV VACCINE Aged Out No longer eligi ble based on patient's age to complete this topic MENINGOCOCCAL (Group B) VACCINE Aged Out No longer eligible based on patient's age to complete this topic MENINGOCOCCAL VACCINE Aged Out No javad alex eligible based on patient's age to complete this topic Care Teams Bi Developer Relationship Specialty Start Date End Date Angela Segovia, ANSWERING SERVICE OPERATOR-VACATION PLANNER [address] [place] [address] PCP - General Nurse Practitioner Family 04/03/19 Miller Betancourt MD [address] [place] [address] Cardiology 09/03/14
--- OUTSIDE RECORDS SUMMARY | 2024-04-06 06:53 | XMS_ITS | Referral Summary ---
Author Organization [facility] Address [address] [place] [address] Care Team Providers Care Polymerization Engineer Name Role Phone Miller Betancourt MD Unavailable [phone] Angela Segovia APRN-ELASTIC CUTTER Primary Care Provider Source Comments [facility],non-owned Affiliates and Associated Physician Practices is amultiple site organization consisting of ambulatory clinics and hospital sitesin [place], [place], [place] and [place]. This disclosure is being madepursuant to the Care Everywhere program and may not contain all information available regarding this patient. Last updated 17.[facility] Allergies Active Allergy Reactions Criticality Noted Date [...] migh t be different from the original. Configuration Engineer - Dr. Miller Betancourt Problem Noted Date Diagnosed Date Upper back pain 03/02/2017 Statin intolerance 03/03/2015 Coronary artery disease invo lving [place] coronary artery of [place] heart without angina pectoris 12/15/2013 Overview (06/25/2019): [...] exercise) with bilateral biphasic to triphasic PVRs. Social History Tobacco Use Types Packs/Day Years [...] Comments Blood Pressure 160/93 04/03/2019 2:02 PM DISBURSING AGENT Pulse 51 04/03/2019 2:02 PM DISBURSING AGENT Temperature - - Respiratory Rate - - Oxygen Saturation 97% 03/15/2018 10:06 AM DISBURSING AGENT Inhaled Oxygen Concentration - - Weight 43.5 kg (96 lb) 04/03/2019 2:02 PM DISBURSING AGENT Height 154.9 cm (5' 1 ) 04/03/2019 2:02 PM DISBURSING AGENT Body Mass Index 18.14 04/03/2019 2:02 PM DISBURSING AGENT Plan of Treatment Not on file Care Teams Polymerization Engineer Relationship Specialty Start Date End Date Angela Segovia, DYE MACHINE TENDER-ELASTIC CUTTER [address] [place] [phone] PCP - General Nurse Practitioner Family 04/03/19 Miller Betancourt MD [address] [place] [id number] Cardiology 09/03/14
--- OUTSIDE RECORDS SUMMARY | 2024-04-06 06:53 | XMS_ITS | Clinical Summary ---
Author Organization [facility] Address [address] [place] [address] Phone Care Team Providers Care Air Export Agent Name Role Phone Kim Hogan MD Primary Care Provider [phone] Allergies Active Allergy Reactions Criticality Noted Date Comments Codeine Nausea and Vomiting Low 12/13/2013 Diazepam Other (See Comments) 02/07/2014 Burning all over Paroxetine Hcl Syncope Medium 12/13/2013 Medications POLYETHYLENE GLYCOL 3350 (MIRALAX ORAL) Take by mouth daily. Active ranitidine (ZANTAC) 150 mg tablet Take 150 mg by mouth 1 time daily as needed for Indigestion . Active aspirin (ECOTRIN EC) 81 mg Tablet, Delayed Release (E.C.) Take 81 mg by mouth twice weekly. Active busPIRone (BUSPAR) 5 mg tablet Take 5 mg by mouth daily. Active levothyroxine 25 mcg tablet Take 25 mcg by mouth daily manager clinical. Active clopidogrel (PLAVIX) 75 mg Tablet TAKE 1 TAB (75 MG) BY MOUTH DAILY. 30 Tab 6 07/21/2014 Active Active Problems Patient Care Coordination No te Formatting of this note migh t be different from the original. Dr. Miller Betancourt, cardiology Problem Noted Date Diagnosed Date Coronary atherosclerosis of [place] coronary [place] ry 12/15/2013 Overview (12/15/2013): Cath 11/2013 -- Presented with new accelerating angina. Mod 40-50% LCx lesion. Critical, calcified 90% in a small but technically co-dominant mid RCA lesion. More inferior wall supply from the Left Circumflex system. Mid RCA stented with overlapping 2.5 X 24 and 2.5 X 12mm Promus drug-eluting stents. EF 60%. S/P coronary artery stent placement 12/15/2013 Fatigue 12/13/2013 Family history of heart disease 12/13/2013 Resolved Problems Problem Noted Date Diagnosed Date Resolved Date Chest pressure 12/13/2013 01/08/2014 Shortness of breath 12/13/2013 01/09/20 14 Immunizations Immunization Administration Dates Next Due Influenza Seasonal Unspecified Formulation IM Family History Medical History Relation Name Comments Heart Disease Brother Cancer Father Diabetes Sister Heart Disease Sister Hypertension Sister Relation Name Status Comments Brother Father Sister Social History Tobacco Use Types Packs/Day Years Used Date Smoking Tobacco: Never Alcohol Use Standard Drinks/Week Comments No 0 (1 standard drink = 0.6 oz pur e alcohol) Comments No Sex and Gender Information Value Date Recorded Sex Assigned at Not on file Legal Sex Female 5:55 PM CDT Gender Identity Not on file Sexual Orientation Not on file Occupation Industry Job Start Date Job End Date Not on file Not on file Not on file Not on file Last Filed Vital Signs Vital Sign Reading Time Taken Comments Blood Pressure 124/70 05/21/2014 9:41 AM CDT Pulse 75 05/21/2014 9:41 AM CDT Temperature 36.5 C (97.7 F) 02/02/2014 9:55 AM PRESERVATIONIST Respiratory Rate 16 02/02/2014 9:55 AM PRESERVATIONIST Oxygen Saturation 97% 05/21/2014 9:41 AM CDT Inhaled Oxygen Concentration - - Weight 48.4 kg (106 lb 12.8 oz) 05/21/2014 9:41 AM CDT Height 154.9 cm (5' 1 ) 05/21/2014 9:41 AM CDT Body Mass Index 20.18 05/21/2014 9:41 AM CDT Plan of Treatment Health Maintenance Due Date Last Done Comments DTAP/TDAP/TD VACCINES (1 - Tdap) 12/22/1971 BREAST CANCER SCREENING 1992 COLORECTAL SCREENING 1997 Colorectal Cancer Screening 1997 FIT-DNA Q 3 years 1997 FIT/FOBT Q 1 year 1997 Flex Sig/CT Colonography Q 5 years 1997 PNEUMOCOCCAL VACCINE 65+ YEARS (1 of 1 - PCV) 12/22/19 03 ZOSTER VACCINE (1 of 2) 2002 RSV VACCINE (60+ or ) (1 - Risk 60-74 years 1-dose series) 2012 OSTEOPOROSIS SCREENING 2017 INFLUENZA VACCINE (#1) 2023 10/21/2013 Medical Devices Implanted Type Area Hotel Valet Attendant Device Identifier Shelf Expiration Date Model / Serial / Lot Promus Premier-12/15/19 14 Implanted:2013 by Samy Porras MD (Quantity not on file) Explanted:(Quant ity not on file) Stent 03/22/2014 Description:placed in the RC A Promus Premier-12/15/19 14 Implanted:2013 by Samy Porras MD (Quantity not on file) Explanted:(Quant ity not on file) Stent 02/22/2015 Description:placed in the RC A Insurance [facility] BLUE ACCESS/TRUE BLUE PPO Advance Directives For more information, please contact: [phone] * Full Code (Latest Code Status on File) Date Activated Date Inactivated Comments 12/13/2013 11:09 PM 12/15/2013 2:58 PM Care Teams Air Export Agent Relationship Specialty Start Date End Date Kim Hogan MD [address] [phone] PCP - General 02/06/15
--- OUTSIDE RECORDS SUMMARY | 2024-04-06 06:53 | XMS_ITS | Patient Health Summary ---
Author Organization [facility] Address [address] [place] [address] Care Team Providers Care Digital Coordinator Name Role Phone Miller Betancourt MD Unavailable [phone] Angela Segovia APRN-GROUNDS MAINTENANCE WORKER Primary Care Provider Note from [facility],non-owned Affiliates and Associated Physician Practices is amultiple site organization consisting of ambulatory clinics and hospital sitesin [place], [place], [place] and [place]. This disclosure is being madepursuant to the Care Everywhere program and may not contain all information available regarding this patient. Last updated 17.[facility] Allergies * Codeine(Nausea and/or Vomiting) * Paroxetine(Other) * Ranexa(Other) * Hmg-Coa-R Inhibitors(Myalgias) * Diazepam(Other) Medications * Be aware that medications may not be up to date on this document. Alwaysverify current medications with the patient. * busPIRone (BUSPAR) 5 MG tablet Take 5 mg by mouth as needed * levothyroxine (SYNTHROID) 25 MCG tablet Take 25 mcg by mouth daily before breakfast * aspirin EC (ECOTRIN) 81 MG tablet Take 81 mg by mouth once daily * polyethylene glycol 3350 (MIRALAX) packet Take 17 g by mouth once daily * LORazepam (ATIVAN) 0.5 MG tablet Take 0.5 mg by mouth as needed for Anxiety * Cyanocobalamin (B-12) 1000 MCG TABS Take 1,000 mcg by mouth once daily * naltrexone (REVIA) 4.5 MG compd capsule Take 1 capsule by mouth at bedtime * propranolol (INDERAL) 80 MG tablet(Started 02/06/2020) Take 0.5 tablets by mouth 2 times daily 5 refills by 02/05/2021 Active Problems Problem Noted Date Diagnosed Date Upper back pain 03/02/2017 Statin intolerance 03/03/2015 Coronary artery disease invo lving [place] coronary artery of [place] heart without angina pectoris 12/15/2013 S/P coronary artery stent placement 12/15/2013 Family history of cardiovascular disease 014 Social History Tobacco Use Types Packs/Day Years [...] Comments Blood Pressure 160/93 04/03/2019 2:02 PM SALES TEACHER Pulse 51 04/03/2019 2:02 PM SALES TEACHER Temperature - - Respiratory Rate - - Oxygen Saturation 97% 03/15/2018 10:06 AM SALES TEACHER Inhaled Oxygen Concentration - - Weight 43.5 kg (96 lb) 04/03/2019 2:02 PM SALES TEACHER Height 154.9 cm (5' 1 ) 04/03/2019 2:02 PM SALES TEACHER Body Mass Index 18.14 04/03/2019 2:02 PM SALES TEACHER Procedures * VAS ARTERIAL ANKLE ARM INDEX STRESS(Performed 02/24/2020) Performed for 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 (HCC) * NM MYOCARD PERF REST STRESS(Performed 06/25/2019) Performed for Precordial pain, Coronary artery disease involving [place] coronary artery of [place] heart, angina presence unspecified, S/P coronary artery stent placement, Family history of cardiovascular disease, Hypercholesteremia * LAB MISC TEST(Performed 04/25/2018) * EKG 12-LEAD(Performed 10/26/2017) Performed for Coronary artery disease involving [place] coronary artery of [place] heart without angina pectoris * LAB MISC TEST(Performed 04/18/2017) * LAB MISC TEST(Performed 04/18/2017) * LAB MISC TEST(Performed 04/18/2017) * LAB MISC TEST(Performed 04/18/2017) * LAB MISC TEST(Performed 04/18/2017) * LAB MISC TEST(Performed 04/18/2017) * EKG 12-LEAD(Performed 03/29/2017) Performed for Family history of cardiovascular disease * CARDIAC CATH(Performed 11/09/2016) * ECHOCARDIOGRAM STRESS(Performed 11/03/2016) Performed for Precordial pain, Atherosclerosis of coronary artery of [place] heart, angina presence unspecified, unspecified vessel or lesion type, S/P coronary artery stent placement, Family history of cardiovascular disease * EKG 12-LEAD(Performed 08/18/2016) Performed for Coronary artery disease involving [place] coronary artery of [place] heart without angina pectoris, Statin intolerance * LAB MISC TEST(Performed 07/28/2016) * EKG 12-LEAD(Performed 08/21/2015) Performed for Preop testing * ECHOCARDIOGRAM STRESS(Performed 09/30/2014) Performed for Exertional angina, possible, Coronary artery disease involving [place] coronary arterywithout angina pectoris, S/P coronary artery stent placement, Family history of cardiovascular disease Results * VAS ARTERIAL ANKLE ARM INDEX STRESS (02/24/2020 10:41 AM SALES TEACHER) Anatomical Region Laterality Modality Ankle / Foot, Upper Extremity Ot her Narrative 02/24/2020 10:41 AM SALES TEACHER Leeann Nunez RDMS 02/24/2020 10:42 AM See scan Procedure Note Leeann Nunez RDMS - 02/24/2020 10:41 AM CST See scan Miller Betancourt MD VASCULAR LAB ORDERAB LES * NM MYOCARD PERF REST STRESS (06/25/2019 2:04 PM CDT) Anatomical Region Laterality Modality Chest Other Narrative 06/25/2019 2:04 PM CDT Ashly Barry 06/25/2019 2:06 PM See scan Procedure Note Ashly Barry - 06/25/2019 2:04 PM CDT See scan Miller Betancourt MD NM ORDERABLES * LAB MISC TEST (04/25/2018) Only the most recent of8 resultswithin the time period is included. Blood BLOOD SPECIMEN / Unknown Provider Unknown LAB SEND OUT * EKG 12-LEAD (10/26/2017 9:43 AM CDT) Only the most recent of4 resultswithin the time period is included. Narrative Lucia Ansari - 10/26/2017 9:43 AM CDT Lucia Ansari 10/26/2017 9:43 AM See scan Miller Betancourt MD ECG ORDERABLES * CARDIAC CATH (11/09/2016) Raimundo Santizo MD CARDIAC SERVICES ORD ERABLES * ECHOCARDIOGRAM STRESS (11/03/2016 1:46 PM CDT) Only the most recent of2 resultswithin the time period is included. Narrative Montserrat Teresa RDMS - 11/03/2016 1:46 PM CDT Montserrat Teresa RDMS 11/03/2016 1:46 PM See scan Miller Betancourt MD ECHO ORDERABLES Care Teams Digital Coordinator Relationship Specialty Start Date End Date Angela Segovia, ASSISTANT PROFESSOR-GROUNDS MAINTENANCE WORKER [address] [place] [address] [phone] PCP - General Nurse Practitioner Family 04/03/19 Miller Betancourt MD [address] [place] [id number] Cardiology 09/03/14
--- OUTSIDE RECORDS SUMMARY | 2024-04-06 06:53 | XMS_ITS | Clinical Summary ---
Author Organization [facility] Address [address], [address] [address] Phone Care Team Providers Care Automotive Service Technician Name Role Phone Joe Elliott DO Unavailable [phone] Provider, Unknown Primary Care Provider Unavaila ble Allergies Active Allergy Reactions Criticality Noted Date Comments Celecoxib Unknown Codeine Unknown Rosuvastatin Unknown Paroxetine Hcl Unknown Diazepam Unknown Medications Aspirin 81 MG Tablet Active BusPIRone HCl 7.5 MG Tablet Active polyethylene glycol (MIRALAX) PowderIndicatio ns:1/2 of the directed dose Indications: 1/2 of the directed dose Active LORazepam (ATIVAN PO) Take by mouth. Active propranolol (INDERAL) 80 MG Tablet Take 80 mg by mouth 3 times daily. Active NALTREXONE HCL PO Take by mouth. Active otherIndication s:Nature Thyroid 1 grain 65 mg by Other route. Indications: Nature Thyroid 1 grain Active Active Problems Problem Noted Date Diagnosed Date Esophageal reflux Bloating Abdominal pain, epigastric Immunizations Immunization Administration Dates Next Due Covid-19, Mrna, Lnp-s, Pf, 30 Mcg/0.3 Ml Dose (Shaka sykes) 05/22/2020,05/01/2020 Family History Medical History Relation Name Comments Cancer Brother renal Heart Disease Brother Cancer Father lung Heart Disease Sister Relation Name Status Comments Brother Father Sister Social History Tobacco Use Types Packs/Day Years Used Date Smoking Tobacco: Never Smokeless Tobacco: Never Tobacco Cessation:Counseling Given: Yes Alcohol Use Standard Drinks/Week Comments No 0 (1 standard drink = 0.6 oz pur e alcohol) Comments Unknown Sex and Gender Information Value Date Recorded Sex Assigned at Not on file Legal Sex Female 8:02 PM CDT Gender Identity Not on file Sexual Orientation Not on file 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 Not on file Not on file Not on f ile Last Filed Vital Signs Vital Sign Reading Time Taken Comments Blood Pressure 136/84 11/06/2018 2:08 PM CDT Pulse 59 11/06/2018 2:08 PM CDT Temperature 36.9 C (98.4 F) 08/09/2016 1:14 PM CDT Respiratory Rate 18 08/09/2016 1:14 PM CDT Oxygen Saturation 97% 11/06/2018 2:08 PM CDT Inhaled Oxygen Concentration - - Weight 45.2 kg (99 lb 9.6 oz) 11/06/2018 2:08 PM CDT Height 154.9 cm (5' 1 ) 08/09/2016 1:14 PM CDT Body Mass Index 18.82 08/09/2016 1:14 PM CDT Plan of Treatment Health Maintenance Due Date Last Done Comments DEXA Bone Density 1950 Hepatitis C Virus (HCV) Screening 1950 Cologuard 2002 Immunochemical Fecal Occult Blood 2002 Mammogram 2002 Respiratory Syncytial Virus (RSV) Immunization (Adult) (1 - Risk 60-74 years 1-dose series) 2012 Zoster Immunization (2 of 3) 04/11/2013 02/14/2013 Influenza Immunization (#1) 10/22/202310/21, 12/03/2018, 11/09/2018, Additional history exists SARS-COV-2 Immunization ( season) 2023 05/22/2020, 05/01/2020 Colonoscopy 12/27/2023 12/26/2018, 08/2015, 02/11/2014 Colorectal Cancer Screening 12/27/2023 12/26/2018, 08/2015, 02/11/2014 DTaP/Tdap/Td Immunization Discontinued 04/04/2017 TdaP Immunization Completed 04/04/2017 Pneumococcal Immunization (50+ years) Completed 04/16/2019, 11/03/2015, 10/13/2014 Pneumococcal Immunization Combined Discontinued 04/16/2019, 11/03/2015, 10/13/2014 Hepatitis B Immunization Aged Out No longer eligible based on patient's age to complete this topic Meningococcal Immunization (ACWY) Aged Out No longer eligible based on patient's age to complete this topic Rotavirus Immunization Aged Out No lo nger eligible based on patient's age to complete this topic Procedures Procedure Name Priority Date/Time Associated Diagnosis Comments COLONOSCOPY Routine 12/26/2018 from Last 3 Months or Most Recently Relevant to Health Maintenance Results * COLONOSCOPY (12/26/2018) Joe Elliott DO PROCEDURE/MINOR SURGICAL ORDERA BLES Final Result from Last 3 Months or Most Recently Relevant to Health Maintenance Insurance [employer] [place] Care Teams Automotive Service Technician Relationship Specialty Start Date End Date Provider, Unknown UNKNOWN PCP - General 11/06/18 Joe Elliott DO Gastroenterology 03/10/15
--- OUTSIDE RECORDS SUMMARY | 2024-04-06 06:53 | XMS_ITS | Continuity of Care Document ---
Author Organization [facility] Address [address] [place] [address] Phone Care Team Providers Care Outsole Cementer Name Role Phone Khan OD, Joe Unavailable Unavailable Procedures Procedure Date No Charge Contact Lens Check CL Replacement - Vistakon Disp W/BW Soft Tax - Medical Eye Exam & Treatment Refraction Eye Exam Established Pt Advance Directives Directive Yes / No Effective Date File Name No Information Encounters Encounter Description Practice Location Reason(s) For Visit Diagnoses Date Provider Providers Copied on Encounter [facility], [id number] [place] [address] [address], [place], [place], [id number], [place] tel:[phone] [facility] No Information 9-200 9 Khan OD Joe. [address], [place], [place], [facility], [place]. tel:[phone] [facility], [address], [place], [place], [id number], [place] tel:[phone] [facility] No Information 2-200 9 Khan OD Joe. [address] , [address], [place], [address], [place]. tel:[phone] [facility], [address], [place], [place], [id number], [place] tel:[phone] [facility] No Information 6-200 9 Khan OD Joe. [address] , [address], [place], [address], [place]. tel:[phone] Family History Family Member Type Diagnosis Age At Onset No Information Payers Payer name Insurance type Covered republican ID Authoriza tion(s) No Information Social History Type Description Quantity Date Captured Comments Sex Female Smoking Status No Information Chief Complaint And Reason For Visit No Information Reason For Referral Reason For Referral No Information History Of Present Illness Encounter Date Complaint History Of Prese nt Illness No Information Functional Status Date Functional Assessmen t No Information Instructions Date Instruction Additional Infor mation No Information Assessments Type Assessment Date No Information Patient Care Teams Name Effective Dates (start - stop) Status Members No Information
--- OUTSIDE RECORDS SUMMARY | 2024-04-06 06:53 | XMS_ITS | Referral Summary ---
Author Organization [facility] Address [address] [place] [address] Care Team Providers Care Office Machine Installer Name Role Phone Angela Segovia STOCK BUYER Primary Care Provider + Encounters Date Type Department Care Team Description 02/07/2024 9:45 AM RUBY ON RAILS SOFTWARE DEVELOPER - 02/07/2024 11:59 PM RUBY ON RAILS SOFTWARE DEVELOPER Hospital Encounter [facility] [address] [place] [address] Ilana Casas MD Closed fracture of proximal end of right humerus, unspecified fracture morphology, initial encounter Discharge Disposition: Discharge to home or self care 02/07/2024 10:20 AM RUBY ON RAILS SOFTWARE DEVELOPER Office Visit [facility] Orthopaedic Surgery [address] [facility] 6th [place] [address] [place] [address] Ilana Casas MD Closed fracture of proximal end of right humerus, unspecified fracture morphology, initial encounter (Primary Dx) from Last 3 Months Allergies Active Allergy Reactions Criticality Noted Date Comments Cefdinir Other (See comments) Low 12/27/2023 Celecoxib Dizziness,Unknown Low 12/27/2023 Codeine Nausea And Vomiting,Nausea only,Nausea & Vomiting Low 12/13/2013 Diazepam Other (See comments),Rash Medium 02/07/2014 Burning all over Ezetimibe Muscle pain Medium 12/27/2023 Hydrocodone-Acetaminoph en Nausea & Vomiting Low 12/27/2023 Paroxetine Syncope,Other (See comments),Unknown High 12/13/2013 Syncope Ranolazine Other (See comments) Low 10/30/2017 Shaking, malaise Rosuvastatin Unknown 12/27/2023 Rkkkgsf-Qmj-Vay Reductase Inhibitors Other (See comments),Photosensi tivity,Muscle pain Medium 09/03/2014 Multiple statins tried Medications amitriptyline (ELAVIL) 10 mg tablet Take 1 tablet (10 mg total) by mouth nightly 4 Active carbidopa-levod opa (SINEMET) 25-100 mg per tablet Take 1.5 tablets by mouth 4 (four) times a day 4 Active levothyroxine (SYNTHROID) 25 mcg tablet Take 1 tablet (25 mcg total) by mouth human resources file clerk before breakfast Active polyethylene glycol (MIRALAX) 17 gram/dose bulk powder Take 8.5 g by mouth daily Active alendronate (FOSAMAX) 70 mg tablet Take 1 tablet (70 mg total) by mouth every 7 days 4 Active carbidopa-levod opa (SINEMET) 25-100 mg per tabletIndicatio ns:Parkinsonism Take 1 tablet by mouth 4 (four) times a day 4 11/22/19 25 Active cyclobenzaprine (FLEXERIL) 10 mg tabletIndicatio ns:Muscle Spasm Take 1 tablet (10 mg total) by mouth every 8 (eight) hours as needed for muscle spasms 4 Active levothyroxine (SYNTHROID) 25 mcg tablet Take 1 tablet (25 mcg total) by mouth human resources file clerk before breakfast 4 Active senna-docusate (PERICOLACE) 8.6-50 mgIndications:c onstipation Take 1 tablet by mouth daily 4 Active lidocaine (ASPERCREME) 4 % adhesive patch,medicated Place 1 patch on the skin daily 4 Active hydrOXYzine (ATARAX) 25 mg tablet TAKE 1 TABLET BY MOUTH EVERY 6 HOURS NEEDED FOR ANXIETY FOR 15 DAYS 4 Active oxyBUTYnin (DITROPAN) 5 mg tablet TAKE 1/2 TABLET BY MOUTH 3 TIMES A DAY 4 Active Active Problems Problem Noted Date Diagnosed Date Anemia 11/21/2023 Assessment & Plan (11/22/2023 12:56 PM CDT): 11/19: hgb 7.3 -->6.6 (no blood given) 11/20: hgb 7.1 11/21: Hgb 7.3g/dL Nausea 11/17/2023 Assessment & Plan (11/17/2023 5:24 PM CDT): 11/16: nausea with pain medications. Decreasing oxy 7.5 >5mg. Patient started having pain again. Oxy increased back to 7.5 Hypokalemia 11/16/2023 Assessment & Plan (11/16/2023 4:34 AM CDT): 11/14: K+ 3 - repleted in ED 11/15: K+ 3.3 Resolved Parkinson's disease 11/16/2023 Assessment & Plan (11/16/2023 4:41 AM CDT): Home dosage of sinemet started Hypothyroidism 11/16/2023 Assessment & Plan (11/16/2023 4:42 AM CDT): Home synthroid 25mg started Acute traumatic pain 11/16/2023 Assessment & Plan (11/18/2023 7:18 PM CDT): - tylenol 1000mg q6 - oxy 7.5mg - gabapentin 300mg TID - lidocaine patch Discharge planning issues 11/16/2023 Assessment & Plan (11/22/2023 12:57 PM CDT): 11/15: OR with ortho 11/16: PT/OT. Pending syncope workup 11/17: PT/OT - inpatient rehab facility. 11/18-11/21: Patient is medically stable for discharge, SW/CM updated. Discharge pending facility acceptance Ortho - has follow up scheduled on 12/06/[address] [place] Gifford located at [facility], initial encounter 11/15/2023 Assessment & Plan (11/22/2023 12:59 PM CDT): - hCT: no intracranial processes or acute c-spine fractures - CXR: no acute injuries, chronic bronchitis - syncope workup: - orthostatics + 11/16, 500ml LR bolus - Tele - ECHO - LVEF 75%. No valvular dysfunction - EKG (11/15) - Carotid duplex - R/L internal carotid artery disease <50% RESOLVED Closed fracture of right proximal humerus 2023 Assessment & Plan (11/20/2023 3:13 PM CDT): - occurred during syncopal fall 10/23, was planning to see Ortho 11/14 - NWB RUE 11/15: OR with Ortho ORIF 11/15. Lovenox resumed postop. 11/16: PT/OT. Per ortho - OT to see her POD3 to apply edema glove and tubagrip. Elevate arm with pillows (with sling on). Edema expected. 11/17: increased sharp pain in arm, gabapentin added 11/19: non weight bearing RUE Wound Care: Maintain surgical dressing until follow-up Sutures: running monocryl, Therapy: OT for upper extremity protocol. Follow-Up: Patient has follow up scheduled on 12/06/[address] Casas located at [facility] Social History Tobacco Use Types Packs/Day Years Used Date Smoking Tobacco: Never Passive Smoke Exposure: Never Smokeless Tobacco: Never Tobacco Cessation:Counseling Given: Not Answered AUDIT-C Answer Date Recorded Frequency of Alcohol Consumption Not on file 11/16/2023 Q2: How many drinks containi ng alcohol do you have on a typical day when you are drinking? Patient does not drink Frequency of Binge Drinking Not on file 10/22 Personal Safety Answer Date Recorded Have you ever been in or are you currently in a harmful physical or emotional relationship or is someone making you feel afraid or unsafe? Denies 11/19/2023 Comments Unknown Sex and Gender Information Value Date Recorded Sex Assigned at Not on file Legal Sex Female 12:23 AM RUBY ON RAILS SOFTWARE DEVELOPER Gender Identity Not on file Sexual Orientation Not on file Last Filed Vital Signs Vital Sign Reading Time Taken Comments Blood Pressure 129/71 11/22/2023 12:11 PM CDT Pulse 97 11/22/2023 12:11 PM CDT Temperature 36.6 C (97.8 F) 11/22/2023 12:11 PM CDT Respiratory Rate 18 11/22/2023 12:11 PM CDT Oxygen Saturation 97% 11/22/2023 12:11 PM CDT Inhaled Oxygen Concentration - - Weight 41.7 kg (92 lb) 12/27/2023 11:31 AM RUBY ON RAILS SOFTWARE DEVELOPER Height 152.4 cm (5') 12/27/2023 11:31 AM RUBY ON RAILS SOFTWARE DEVELOPER Body Mass Index 17.97 12/27/2023 11:31 AM RUBY ON RAILS SOFTWARE DEVELOPER Plan of Treatment Not on file Medical Devices Implanted Type Area Boat Rental Clerk Device Identifier Shelf Expiration Date Model / Serial / Lot Musculoskeletal Transplant [id number] Mm Allograft Frozen Graft Bone Fibula Shaft [id number] - [id number] - [id number] Implanted:Qty: 1 on 11/16/2023 by Ilana Casas MD at [facility] Musculoskeletal Transplant [id number] 04/01/2027 [id number] / [id number] / Synthes 3.5mm 2.9mm 26mm Self Tap Lock Stardrive Conical Head T15 Full 212.109 - [id number] Implanted:Qty: 3 on 11/16/2023 by Ilana Casas MD at [facility] Synthes 212.109 / / Synthes 3.5mm 2.9mm 40mm Self Tap Lock Stardrive Conical Head T15 Full 212.117 - [id number] Implanted:Qty: 1 on 11/16/2023 by Ilana Casas MD at [facility] Synthes 212.117 / / Synthes 3.5mm 2.9mm 38mm Self Tap Lock Stardrive Conical Head T15 Full 212.116 - [id number] Implanted:Qty: 1 on 11/16/2023 by Ilana Casas MD at [facility] Synthes 212.116 / / Synthes 3.5mm 2.9mm 42mm Self Tap Lock Stardrive Conical Head Full Thread 212.118 - [id number] Implanted:Qty: 1 on 11/16/2023 by Ilana Casas MD at [facility] Synthes I 212.118 / / Allosource Cube Freeze Dried Irradiated Graft 30ml Bone Cancellous [id number] - [id number] - [id number] Implanted:Qty: 1 on 11/16/2023 by Ilana Casas MD at [facility] Allosource 07/04/2027 [id number] / [id number] / [id number] Synthes Lcp Combi Philos [id number] 3 Hole Shaft Lock Compression 241.901 - [id number] Implanted:Qty: 1 on 11/16/2023 by Ilana Casas MD at [facility] Synthes I 241.901 / / Synthes 3.5mm 6mm 38mm 2.5mm Self Tap Small Hexagonal Socket Low Profile 204.838 - [id number] Implanted:Qty: 1 on 11/16/2023 by Ilana Casas MD at [facility] Synthes I 204.838 / / Synthes 3.5mm 2.9mm 36mm Self Tap Lock Stardrive Conical Head T15 Full 212.115 - [id number] Implanted:Qty: 3 on 11/16/2023 by Ilana Casas MD at [facility] Synthes 212.115 / / Synthes 3.5mm 6mm 26mm 2.5mm Self Tap Small Hexagonal Socket Low Profile 204.826 - [id number] Implanted:Qty: 1 on 11/16/2023 by Ilana Casas MD at [facility] Synthes 204.826 / / Synthes 3.5mm 2.9mm 22mm Self Tap Lock Stardrive Conical Head T15 Full 212.107 - [id number] Implanted:Qty: 1 on 11/16/2023 by Ilana Casas MD at [facility] Synthes 212.107 / / Synthes 3.5mm 2.9mm 24mm Self Tap Lock Stardrive Conical Head Pelvis T15 212.108 - [id number] Implanted:Qty: 1 on 11/16/2023 by Ilana Casas MD at [facility] Synthes 212.108 / / Explanted Type Area Boat Rental Clerk Device Identifier Shelf Expiration Date Model / Serial / Lot Synthes 3.5mm 2.9mm 28mm Self Tap Lock Stardrive Conical Head T15 Full 212.110 - [id number] Explanted:Qty: 1 on 11/16/2023 at [facility] Synthes 212.110 / / Synthes 3.5mm 6mm 24mm 2.5mm Self Tap Small Hexagonal Socket Low Profile 204.824 - [id number] Explanted:Qty: 1 on 11/16/2023 at [facility] Synthes 204.824 / / Procedures Procedure Name Priority Date/Time Associated Diagnosis Comments XR SHOULDER RIGHT 2 OR MORE VIEWS Schedule Routine, Read Routine (OP Routine) 02/07/2024 10:33 AM RUBY ON RAILS SOFTWARE DEVELOPER Closed fracture of proximal end of right humerus, unspecified fracture morphology, initial encounter from Last 3 Months Results * X-ray shoulder right 2+ views (02/07/2024 10:33 AM RUBY ON RAILS SOFTWARE DEVELOPER) Anatomical Region Laterality Modality Upper Extremities, Shoulder Right Comp uted Radiography 02/07/2024 11:1 5 AM RUBY ON RAILS SOFTWARE DEVELOPER Impressions 02/07/2024 11:15 AM RUBY ON RAILS SOFTWARE DEVELOPER Healing internally fixated proximal right humerus fracture. Electronically signed by: Yury Cordoba MD Narrative 02/07/2024 11:15 AM RUBY ON RAILS SOFTWARE DEVELOPER EXAMINATION: XR SHOULDER RIGHT 2 OR MORE VIEWS HISTORY: Proximal right femoral fracture FINDINGS: Comparison dated 12/27/2023. Healing internally fixated proximal right humerus fracture, with bone graft material. Alignment is unchanged. No fracture. The glenohumeral joint is normal. Mild right acromioclavicular osteoarthritis. Mild soft tissue swelling. Procedure Note Yury Cordoba MD - 02/07/2024 EXAMINATION: XR SHOULDER RIGHT 2 OR MORE VIEWS HISTORY: Proximal right femoral fracture FINDINGS: Comparison dated 12/27/2023. Healing internally fixated proximal right humerus fracture, with bone graft material. Alignment is unchanged. No fracture. The glenohumeral joint is normal. Mild right acromioclavicular osteoarthritis. Mild soft tissue swelling. IMPRESSION: Healing internally fixated proximal right humerus fracture. Electronically signed by: Yury Cordoba MD Ilana Casas MD IMG XR PROCEDURES Final Re sult from Last 3 Months Insurance MEDICARE [employer] Member Subscriber Plan / Payer (Ef fective 2017-Present) Name:Lorrie Eubanks Relation to Subscriber:Self Name:Lorrie Eubanks Payer ID:[id number] Group ID:Not on file Type:invi Address: [facility] [address] [place], [place] MEDICARE [employer] [place] [employer] Member Subscriber Plan / Payer ( fective 2017-Present) Name:Lorrie Eubanks Relation to Subscriber:Self Name:Lorrie Eubanks Payer ID:[id number] Group ID:Not on file Type:COMMERCIAL Address: [facility] [address] [place], [place] Advance Directives For more information, please contact: [phone] * Full Code (Latest Code Status on File) Date Activated Date Inactivated Comments 11/16/2023 6:59 PM 11/22/2023 10:17 PM * Full Code Date Activated Date Inactivated Comments 11/15/2023 7:18 PM 11/16/2023 6:59 PM Care Teams Office Machine Installer Relationship Specialty Start Date End Date Angela Segovia NP [address] [place] [place] [address] PCP - General Nurse Practitioner 11/17/23
--- OUTSIDE RECORDS SUMMARY | 2024-04-06 06:53 | XMS_ITS | Clinical Summary ---
Author Organization [facility] Address [address] [place] [address] Care Team Providers Care Braze Operator Name Role Phone Angela Segovia STEVEDORE HOLD Primary Care Provider + Allergies Active Allergy Reactions Criticality Noted Date [...] Low 10/30/2017 Shaking, malaise Rosuvastatin Unknown 12/27/2023 Tjnjyzw-Jvp-Ndo Reductase Inhibitors Other (See comments),Photosensi tivity,Muscle pain Medium 09/03/2014 Multiple statins tried Medications amitriptyline (ELAVIL) 10 mg tablet Take 1 tablet (10 mg total) by mouth nightly 4 Active carbidopa-levod opa (SINEMET) 25-100 mg per tablet Take 1.5 tablets by mouth 4 (four) times a day 4 Active levothyroxine (SYNTHROID) 25 mcg tablet Take 1 tablet (25 mcg total) by mouth client service manager before breakfast Active polyethylene glycol (MIRALAX) 17 [...] 1 tablet (25 mcg total) by mouth client service manager before breakfast 4 Active senna-docusate (PERICOLACE) 8.6-50 [...] 12/06/[address] [place] Gifford located at [facility], initial encounter 11/15/2023 Assessment & Plan [...] on 12/06/[address] Casas located at [facility] Encounters Date Type Department Care Team Description 02/07/2024 10:20 AM SECURITY SITE SUPERVISOR Office Visit [facility] Orthopaedic Surgery [address] [facility] 6th [place] [address] [place] [address] Ilana Casas MD Closed fracture of proximal end of right humerus, unspecified fracture morphology, initial encounter (Primary Dx) 02/07/2024 9:45 AM SECURITY SITE SUPERVISOR - 02/07/2024 11:59 PM SECURITY SITE SUPERVISOR Hospital Encounter [facility] ([facility]) [address] [place] [id number] Ilana Casas MD Closed fracture of proximal end of right humerus, unspecified fracture morphology, initial encounter Discharge Disposition: Discharge to home or self care from Last 3 Months Medical History Medical History Date Comments Parkinson's disease (HCC) Anxiety Social History Tobacco Use Types Packs/Day Years [...] on file Legal Sex Female 12:23 AM SECURITY SITE SUPERVISOR Gender Identity Not on file Sexual Orientation Not on file Obstetrics History Last Filed Vital Signs Vital Sign Reading Time Taken Comments Blood Pressure 129/71 11/22/2023 12:11 PM CDT Pulse 97 11/22/2023 12:11 PM CDT Temperature 36.6 C (97.8 F) 11/22/2023 12:11 PM CDT Respiratory Rate 18 11/22/2023 12:11 PM CDT Oxygen Saturation 97% 11/22/2023 12:11 PM CDT Inhaled Oxygen Concentration - - Weight 41.7 kg (92 lb) 12/27/2023 11:31 AM SECURITY SITE SUPERVISOR Height 152.4 cm (5') 12/27/2023 11:31 AM SECURITY SITE SUPERVISOR Body Mass Index 17.97 12/27/2023 11:31 AM SECURITY SITE SUPERVISOR Plan of Treatment Health Maintenance Due Date Last Done Comments Breast Cancer Screening-Mammogram 1950 Colon Cancer Screening-Colonoscopy 1950 Depression Screening 1950 Hepatitis C Screening 1950 Osteoporosis Screening-Bone Density Scan 1950 Hepatitis B Screening 1970 Zoster Vaccine (2 of 3) 04/11/2013 02/14/2013 Well Visit 65+ 2017 Covid-19 Vaccine (3 - 2023-2 5 season) 2023 05/22/2020, 05/01/2020 Influenza Vaccine (#1) 2023 , 11/22/2021, 11/05/2019, Additional history exists Fall Risk Assessment 11/21/2024 11/22/2023 DTaP/Tdap/Td Vaccine (2 - Td or Tdap) 04/04/2027 04/04/2017 Pneumococcal vaccine 65+ Completed 020, 11/03/2015, 10/13/2014 Medical Devices Implanted Type Area Grave Cleaner Device Identifier Shelf Expiration Date Model / Serial / Lot Musculoskeletal Transplant [id number] Mm Allograft Frozen Graft Bone Fibula Shaft 049956 - [id number] - [id number] Implanted:Qty: 1 on 11/16/2023 by Ilana Casas MD at [facility] Musculoskeletal Transplant [id number] 04/01/2027 [id number] / [id number] 1021 / Synthes 3.5mm 2.9mm 26mm Self Tap Lock Stardrive Conical Head T15 Full 212.109 - [id number] Implanted:Qty: 3 on 11/16/2023 by Ilana Casas MD at [facility] Synthes 212.109 / / Synthes 3.5mm 2.9mm 40mm Self Tap Lock Stardrive Conical Head T15 Full 212.117 - [id number] Implanted:Qty: 1 on 11/16/2023 by Ilana Casas MD at [facility] Synthes 212.117 / / Synthes 3.5mm 2.9mm 38mm Self Tap Lock Stardrive Conical Head T15 Full 212.116 - [id number] Implanted:Qty: 1 on 11/16/2023 by Ilana Casas MD at [facility] Synthes 212.116 / / Synthes 3.5mm 2.9mm 42mm Self Tap Lock Stardrive Conical Head Full Thread 212.118 - [id number] Implanted:Qty: 1 on 11/16/2023 by Ilana Casas MD at [facility] Synthes I 212.118 / / Allosource Cube Freeze Dried Irradiated Graft 30ml Bone Cancellous [id number] - [id number] - [id number] Implanted:Qty: 1 on 11/16/2023 by Ilana Casas MD at [facility] Allosource 07/04/2027 [id number] / [id number] / [id number] [employer] Lcp Combi Philos 97o90k8.5mm 3 Hole Shaft Lock Compression 241.901 - [id number] Implanted:Qty: 1 on 11/16/2023 by Ilana Casas MD at [facility] Synthes I 241.901 / / Synthes 3.5mm 6mm 38mm 2.5mm Self Tap Small Hexagonal Socket Low Profile 204.838 - [id number] Implanted:Qty: 1 on 11/16/2023 by Ilana Casas MD at [facility] Synthes I 204.838 / / Synthes 3.5mm 2.9mm 36mm Self Tap Lock Stardrive Conical Head T15 Full 212.115 - [id number] Implanted:Qty: 3 on 11/16/2023 by Ilana Casas MD at [facility] Synthes 212.115 / / Synthes 3.5mm 6mm 26mm 2.5mm Self Tap Small Hexagonal Socket Low Profile 204.826 - [id number] Implanted:Qty: 1 on 11/16/2023 by Ilana Casas MD at [facility] Synthes 204.826 / / Synthes 3.5mm 2.9mm 22mm Self Tap Lock Stardrive Conical Head T15 Full 212.107 - [id number] Implanted:Qty: 1 on 11/16/2023 by Ilana Casas MD at [facility] Synthes 212.107 / / Synthes 3.5mm 2.9mm 24mm Self Tap Lock Stardrive Conical Head Pelvis T15 212.108 - [id number] Implanted:Qty: 1 on 11/16/2023 by Ilana Casas MD at [facility] Synthes 212.108 / / Explanted Type Area Grave Cleaner Device Identifier Shelf Expiration Date Model / Serial / Lot Synthes 3.5mm 2.9mm 28mm Self Tap Lock Stardrive Conical Head T15 Full 212.110 - [id number] Explanted:Qty: 1 on 11/16/2023 at [facility] Synthes 212.110 / / Synthes 3.5mm 6mm 24mm 2.5mm Self Tap Small Hexagonal Socket Low Profile 204.824 - [id number] Explanted:Qty: 1 on 11/16/2023 at [facility] Synthes 204.824 / / Procedures Procedure Name Priority Date/Time Associated Diagnosis Comments XR SHOULDER RIGHT 2 OR MORE VIEWS Schedule Routine, Read Routine (OP Routine) 02/07/2024 10:33 AM SECURITY SITE SUPERVISOR Closed fracture of proximal end of right humerus, unspecified fracture morphology, initial encounter from Last 3 Months Results * X-ray shoulder right 2+ views (02/07/2024 10:33 AM SECURITY SITE SUPERVISOR) Anatomical Region Laterality Modality Upper Extremities, Shoulder Right Comp uted Radiography 02/07/2024 11:1 5 AM SECURITY SITE SUPERVISOR Impressions 02/07/2024 11:15 AM SECURITY SITE SUPERVISOR Healing internally fixated proximal right humerus fracture. Electronically signed by: Yury Cordoba MD Narrative 02/07/2024 11:15 AM SECURITY SITE SUPERVISOR EXAMINATION: XR SHOULDER RIGHT 2 OR MORE [...] sult from Last 3 Months Insurance MEDICARE [facility] MED[place]ARE [employer] [facility] [place] Advance Directives For more information, please contact: [phone] * Full Code (Latest Code Status on File) Date Activated Date Inactivated Comments 11/16/2023 6:59 PM 11/22/2023 10:17 PM * Full Code Date Activated Date Inactivated Comments 11/15/2023 7:18 PM 11/16/2023 6:59 PM Care Teams Braze Operator Relationship Specialty Start Date End Date Angela Segovia NP [address] [facility] [place] [address] PCP - General Nurse Practitioner 11/17/23
--- OUTSIDE RECORDS SUMMARY | 2024-04-06 06:53 | XMS_ITS | Data Portability ---
Author Organization [facility], Main Office Address [address] [place] [address] Care Team Providers Care Inspector Poising Name Role Phone AGNELA ANTONIO Primary Care Provider [phone] ANGELA ANTONIO Referring Provider [phone] Assessment Encounter Date Assessment Date Assessment LastModified by Organization Details LastModified Time 06/15/2022 06/15/2022 10 MINS [email or web address] Not available 16:46:18 Plan of Treatment Reminders Order Date Submit Date Provider Last Modified By Organization Details Last Modified Time Details Appointments None recorded. Lab CBC w/ auto diff 2022 023 [facility], [address] [place] [address], [address], 3 16:41:24 Referral None recorded. Procedures None recorded. Surgeries None recorded. Imaging MAMMO, screening, digital, bilateral 2022 023 [email or web address] 256 [facility], [address], [address], [place], [address], 3 09:12:26 Medication Orders lorazepam 0.5 mg tablet 2022 023 [facility][id number], [address] [place], [address], 3 10:55:57 azathioprin e 50 mg tablet 2022 023 [email or web address] 61 [id number], [address] [place], [address], 10:44:51 Patient TargetsNo targets recorded. Patient Instructions Encounter Date Encounter Id Patient Instructions Last Modified By Organization Details Last Modified Time 06/15/2022 [id number] D/C MILK /WHEAT /SOY/ NUTS/ FISH/ SHELL FISH /EGGS [email or web address] Not available 06/15/2022 16:43:41 PT WITH EOSINOPHILLIC COLITIS . ETIOLOGY IS UNKNOWN. PT WAS RXED A STEROID TAPER . THIS DID NOT HELP. SHE DOES NOT HAVE DIARRHEA . SHE HAS ABD PAIN THAT DID NOT IMPROVE> TRY 6 FOOD ELIMINATION DIET [email or web address] Not available 06/15/2022 16:42:15 09/21/2022 [id number] PT WITH CHRONIC ABD PAIN . PATHOLOGY PROVEN EOSINOPHILLIC COLITIS . TRY AZATHIOPRINE 50 MG DAILY . F/U IN 4 WEEKS [facility]LE[facility] . [email or web address] Not available 09/21/2022 14:46:41 11/02/2022 [id number] PT WITH ABD PAIN ./ EOSINOPHILLIC COLITIS . SHE DENIES DIARRHEA . PT MIGHT BENEFIT FROM AN ANTI TNF MEDICATION . [email or web address] Not available 11/02/2022 13:10:35 02/08/2023 [id number] [email or web address] Not available 02/08 15:49:33 Reason for Referral None Reported. Results Created Date Observation Date Name Description Value Unit Range Abnormal Flag Note LastModifiedBy Organization Detail LastModifiedTime 12/06/1903/16/2022 colon oscop y scree cherelle (PROC ) No observ ation record ed. [email or web address] Not Available 2022 15:50:43 12/06/1902/07/2022 US, abdom en, compl ete No observ ation record ed. [email or web address] Not Available 2022 15:50:43 Result Notes None recorded. Problems Name Problem SNOMED Code Status Onset Date Resolution Date Notes Provider Name and Address Organization Details Recorded Time Numbness and tingling sensation of skin 721581870785 Active 2017 Not Available [facility] 3 14:19:12 Irritable bowel syndrome 88824427 Active Not Available [facility] 3 14:19:12 Chronic back pain 677239002 Active 2018 Not Available [facility] 3 14:19:12 Urinary bladder pain 68408887 Active Not Available [facility] 3 14:19:12 Increased frequency of urination 858405925 Active Not Available [facility] 3 14:19:12 Complainin g of pelvic pain Active Not Available [facility] 3 14:19:12 Microscopi c hematuria 076741542 Active 2016 Not Available [facility] 3 14:19:12 Abdominal pain 11499214 Active Not Available [facility] 3 14:19:12 Right upper quadrant pain 181345964 Active 2016 Not Available [facility] 3 14:19:12 Numbness of finger 851105707 Active 2017 Not Available [facility] 3 14:19:12 Knee pain Active Not Available [facility] 3 14:19:12 Blood in urine 58787667 Active Not Available [facility] 3 14:19:12 Depressive disorder 76106959 Active Not Available [facility] 3 14:19:12 Sinusitis 25037845 Active Not Available [facility] 3 14:19:12 Multiple bruising 474783594 Active Not Available [facility] 3 14:19:12 Osteoarthr itis 535644712 Active Not Available [facility] 3 14:19:12 Dizziness 684348203 Active 2016 Not Available [facility] 3 14:19:12 Hypothyroi dism 59422975 Active Not Available [facility] 3 14:19:12 Acquired deformity of toe 91876526 Active Not Available [facility] 3 14:19:12 Anxiety 11205366 Active Not Available [facility] 3 14:19:12 Parkinson' s disease 05027373 Active 2020 Dr. Watt 10/2020 Not Available [facility] 3 14:19:12 Dysuria 44439910 Active Not Available [facility] 3 14:19:12 Coronary arterioscl erosis 18456613 Active Not Available [facility] 3 14:19:12 Upper respirator y infection 05908700 Active Not Available [facility] 3 14:19:12 Lower abdominal pain 62813256 Active Not Available [facility] 3 14:19:12 Hyperlipid emia 86062014 Active Not Available [facility] 3 14:19:12 Joint pain 44384720 Active 2018 Not Available [facility] 3 14:19:12 Osteoporos is 87810742 Active 2020 Not Available [facility] 3 14:19:12 Otitis media 62514162 Active Not Available [facility] 3 14:19:12 Polyp of colon 49756129 Active Not Available [facility] 3 14:19:12 Urinary tract infectious disease 64183330 Active Not Available [facility] 3 14:19:12 Rhinitis 39144671 Active Not Available [facility] 3 14:19:12 Fatigue 48727076 Active Not Available [facility] 3 14:19:12 Colitis 02382837 Active 2022 Not Available [facility] 3 14:19:12 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 Please review this document and add these problems to the patient's chart manually as needed. Problem Notes None recorded. Procedures Surgical History Date Name Laterality Status Provider Name and Address Organization Details Recorded Time 07/08/19 21 Most Recent Bone Density completed Not Available [facility] 04/20/2022 06:40:51 Cardiovascular Procedure completed Not Available [facility] 04/20/2022 06:40:52 Orthopedic Procedure completed Not Available [facility] 04/20/2022 06:40:52 Hernia Repair completed Not Available [facility] 04/20/2022 06:40:52 Back Surgery completed Not Available [facility] 04/20/2022 06:40:52 hammer toe operation completed Not Available [facility] 04/20/2022 06:40:52 Appendectomy completed Not Available [facility] 04/20/2022 06:40:52 Colonoscopy completed Not Available [facility] 04/20/2022 06:40:52 Orthopedic Surgery completed Not Available [facility] 04/20/2022 06:40:52 Tubal Ligation completed Not Available [facility] 04/20/2022 06:40:52 Cardiovascular Procedure completed Not Available [facility] 04/20/2022 06:40:52 Rotator cuff surgery completed Not Available [facility] 04/20/2022 06:40:52 Imaging Results Imaging Date Name Status LastModified by Organiz ation Details LastModified Time 03/16/2022 colonoscopy screening (PROC) completed Information not available 02/08/2023 15:50:43 02/07/2022 US, abdomen, complete completed Information not available 02/08/2023 15:50:43 Procedure Notes None recorded. Medical Equipment None Reported. Allergies Allergen ID Allergen Name Allergen Category Reaction Reaction Severity Criticality Documentation Date Start Date Code Code System Note Provider Name and Address Organization Details Recorded Time 77789 Zetia medicatio n myalgias (muscle pain) Not available Not available 04/20/2022 65592 9 RxNorm JAW PAIN, RTING LING IN ARMS Not Available [facility] 3 06:49:03 69955 acetamino phen / hydrocodo ne medicatio n vomiting Not available Not available 04/20/2022 98583 2 RxNorm nause a Not Available [facility] 3 06:49:03 93600 Product containin g 3-hydroxy -3-methyl glutaryl- coenzyme A reductase inhibitor (product) medicatio n other Not available Not available 04/20/2022 09817 009 SNOMED Has tried crest or, lipit or, and simva stati n. All same. Deeme d stati n intol erant . Not Available [facility] 3 06:49:03 49643 Paxil medicatio n Not available Not available Not available 04/20/2022 36825 8 RxNorm passe d out Not Available [facility] 3 06:49:03 22430 Omnicef medicatio n Not available Not available Not available 04/20/2022 58381 RxNorm C- diff Not Available [facility] 3 06:49:03 81534 Lipitor medicatio n photosens itivity Not available Not available 04/20/2022 40143 5 RxNorm sever e pain in bones Not Available [facility] 3 06:49:03 53659 codeine medicatio n nausea Not available Not available 04/20/2022 2670 Rx[address] Not Available [facility] 3 06:49:03 12514 Celebrex medicatio n dizziness Not available Not available 04/20/2022 84543 [address] Available [facility] 3 06:49:03 73264 [place] Aspirin medicatio n Not available Not available Not available 04/20/2022 92609 1 RxNorm pt state s no react ion to this Not Available [facility] 3 06:49:03 Medications Name Sig Start Date Stop Date Status Note LastModified by Organization Details LastModified Time naltrexon e 4.5mg capsules TAKE 1 CAPSULE BY MOUTH EVERY DAY active Not Available Not Available No t Available Miralax 17 gram oral powder packet Take 1 packet every day by oral route. 11/29 completed Not Available Not Available Not Available amoxicill in 500 mg capsule TK ONE C PO TID 02/22 completed had a tooth pulled. Not Available Not Available Not Available buspirone 5 mg tablet TAKE 1 TABLET BY MOUTH TWICE A DAY 09/23 completed Not Available Not Available Not Available prednison e 10 mg tablet TAKE 4 TABLETS BY MOUTH ONCE DAILY FOR 14 DAYS, 3 TABS DAILY FOR 7 DAYS, 2 TABS DAILY FOR 35 DAYS 09/23 completed Not Available Not Available Not Available propranol ol 80 mg tablet TAKE 1/2 TABLET BY MOUTH TWICE A DAY active Not Available Not Available No t Available ropinirol e 1 mg tablet TAKE 1 TABLET BY MOUTH TWICE A DAY 09/23 completed Not Available Not Available Not Available trazodone 50 mg tablet Take 1 tablet every day by oral route at bedtime for 30 days. active Not Available Not Available No t Available azithromy dutch 250 mg tablet TAKE 2 TABLETS BY MOUTH TODAY, THEN TAKE 1 TABLET DAILY FOR 4 DAYS active Not Available Not Available No t Available isosorbid e mononitra te 20 mg tablet TAKE 1 TABLET BY MOUTH EVERY DAY 01/27 completed Not Available Not Available Not Available tizanidin e 4 mg tablet TK 1 T PO UP TO TID PRN 11/23 completed Not Available Not Available Not Available hydrocodo ne 5 mg-acetam inophen 325 mg tablet 09/25 completed Not Available Not Available Not Available meperidin e 50 mg tablet 12/24 completed Not Available Not Available Not Available meloxicam 15 mg tablet 09/25 completed Not Available Not Available Not Available famotidin e 40 mg tablet TAKE 1 TABLET BY MOUTH TWICE A DAY 2023 active Not Available Not Available Not Avai lable isosorbid e mononitra te ER 30 mg tablet,ex tended release 24 hr 04/04 completed Cardiolo gy Not Available Not Available Not Available alendrona te 70 mg tablet TAKE 1 TABLET BY MOUTH ONE TIME PER WEEK 2023 active Not Available Not Available Not Avai lable clindamyc in HCl 150 mg capsule TK ONE C PO Q 6 H FOR 7 DAYS 04/10 completed Not Available Not Available Not Available azathiopr ine 50 mg tablet TAKE 1 TABLET BY MOUTH EVERY DAY active Not Available Not Available No t Available clopidogr el 75 mg tablet TAKE 1 TABLET BY MOUTH DAILY active Not Available Not Available No t Available ciproflox acin 250 mg tablet Take 1 tablet every 12 hours by oral route as directed for 5 days. active Not Available Not Available No t Available ciproflox acin 500 mg tablet TAKE 1 TABLET BY MOUTH EVERY 12 HOURS FOR 10 DAYS. active Not Available Not Available No t Available hydrocodo ne 10 mg-acetam inophen 325 mg tablet active Not Available Not Available Not Available aspirin 81 mg tablet,de layed release Take 1 tablet every day by oral route as directed . 11/29 completed Not Available Not Available Not Available tramadol 50 mg tablet TAKE 1/2 - 1 TABLET BY MOUTH 2 TIMES A DAY NEEDED 11/23 completed Not Available Not Available Not Available levothyro xine 25 mcg tablet TAKE 1 TABLET BY MOUTH EVERY DAY (LAST FILL UNTIL LABS 03/01/23) active Not Available Not Available No t Available isosorbid e mononitra te ER 120 mg tablet,ex tended release 24 hr TK 1 T PO QD 04/10 completed Not Available Not Available Not Available isosorbid e mononitra te ER 60 mg tablet,ex tended release 24 hr TK 1 T PO QD 04/04 completed Not Available Not Available Not Available propranol ol 40 mg tablet TK 1 T PO QPM 01/23 completed Not Available Not Available Not Available amoxicill in 875 mg tablet Take 1 tablet twice a day by oral route. active Not Available Not Available No t Available amitripty line 25 mg tablet 11/23 completed Not Available Not Available Not Available lorazepam 0.5 mg tablet TAKE 1 TABLET BY MOUTH TWICE A DAY NEEDED active Not Available Not Available No t Available oxycodone -acetamin ophen 5 mg-500 mg capsule active Not Available Not Available Not Available imiquimod 5 % topical cream packet PLEASE SEE ATTACHED FOR DETAILED DIRECTIO NS 11/18 completed Not Available Not Available Not Available hydrocodo ne 7.5 mg-acetam inophen 325 mg tablet only taking 1/2 pill at a time 03/28 completed Not Available Not Available Not Available cephalexi n 500 mg capsule TAKE 1 CAPSULE EVERY 6 HOURS 09/23 completed Not Available Not Available Not Available erythromy dutch 5 mg/gram (0.5 %) eye ointment APPLY 1 A SMALL AMOUNT ON EYELID AT BEDTIME 01/27 completed Not Available Not Available Not Available hyoscyami ne sulfate 0.125 mg tablet TK 1 T PO Q 4 H PRF CRAMPING 11/23 completed Not Available Not Available Not Available neomycin- polymyxin -dexameth 3.5 mg/mL-10, 000 unit/mL-0 .1% eye drops USE 1 DROP INTO OS QID 04/04 completed Not Available Not Available Not Available nitrofura ntoin macrocrys shanta 100 mg capsule Take 1 capsule every 6 hours by oral route with meals for 7 days. 01/01 completed Not Available Not Available Not Available Synthroid 50 mcg tablet TAKE 1 TABLET BY MOUTH EVERY DAY active Not Available Not Available No t Available buspirone 7.5 mg tablet TAKE 1 TABLET BY MOUTH 3 TIMES A DAY 05/21 completed Not Available Not Available Not Available amoxicill in 250 mg capsule TAKE ONE CAPSULE 3 TIMES A DAY active Not Available Not Available No t Available isosorbid e mononitra te 10 mg tablet TAKE 1 TABLET BY MOUTH TWICE A DAY active Not Available Not Available No t Available amoxicill in 400 mg/5 mL oral suspensio n Take 10 mL twice a day by oral route. active Not Available Not Available No t Available gabapenti n 100 mg capsule 09/25 completed Not Available Not Available Not Available lorazepam 1 mg tablet TAKE 1 TABLET BY MOUTH EVERY DAY NEEDED FOR ANXIETY 08/06 completed Not Available Not Available Not Available azithromy dutch 200 mg/5 mL oral suspensio n TAKE 12.5 MILLILIT ERS (500 MG) BY ORAL ROUTE ONCE DAILY FOR 1 DAY THEN 6.25 MILLILIT ERS (250 MG) BY ORAL ROUTE ONCE DAILY active Not Available Not Available No t Available polyethyl connie glycol 3350 17 gram/dose oral powder active Not Available Not Available Not Available levofloxa dutch 500 mg tablet TK 1 T PO QD 04/10 completed Not Available Not Available Not Available methylpre dnisolone 4 mg tablets in a dose pack TAKE 6 TABLETS ON DAY 1 DIRECTED ON PACKAGE AND DECREASE BY 1 TAB EACH DAY FOR A TOTAL OF 6 DAYS active Not Available Not Available No t Available carbidopa 25 mg-levodo pa 100 mg tablet TAKE 1 TABLET BY MOUTH FOUR TIMES A DAY active Not Available Not Available No t Available ondansetr on 4 mg disintegr ating tablet active Not Available Not Available Not Available fluticaso ne propionat e 50 mcg/actua tion nasal spray,lorin pension USE 2 SPRAYS INTO EACH NOSTRIL AT BEDTIME DIRECTED active PRN Not Available Not Available No t Available dicyclomi ne 10 mg capsule TAKE 1 CAPSULE 4 TIMES A DAY 1/2 HOUR BEFORE MEALS AND AT BEDTIME BY ORAL ROUTE. 11/23 completed Not Available Not Available Not Available diazepam 5 mg tablet 03/10 completed Not Available Not Available Not Available amoxicill in 500 mg-potass ium clavulana te 125 mg tablet TAKE 1 TABLET BY MOUTH EVERY 12 HOURS FOR 10 DAYS 04/10 completed Not Available Not Available Not Available neomycin- polymyxin -hydrocor t 3.5 mg-10,000 unit/mL-1 % ear drops,lorin p USE 4 DROPS IN THE LEFT EAR 4 TIMES A DAY active Not Available Not Available No t Available Pneumovax -23 25 mcg/0.5 mL injection syringe TO BE ADMINIST ERED BY PHARMACI ST FOR IMMUNIZA TION active Not Available Not Available No t Available ezetimibe 10 mg tablet TK 1 T PO QD 11/23 completed Not Available Not Available Not Available Restasis 0.05 % eye drops in a dropperet te INSTILL 1 DROP INTO LEFT EYE TWICE A DAY 09/23 completed Not Available Not Available Not Available Vigamox 0.5 % eye drops active Not Available Not Available Not Available Ciprodex 0.3 %-0.1 % ear drops,lorin pension INT 4 GTS INTO BOTH EARS BID FOR 10 DAYS 04/10 completed Not Available Not Available Not Available Crestor 10 mg tablet Take by oral route for 30 days. 12/24 completed Not Available Not Available Not Available metoprolo l tartrate 25 mg tablet 12/24 completed Not Available Not Available Not Available nitrofura ntoin monohydra te/macroc rystals 100 mg capsule TAKE 1 CAPSULE BY MOUTH EVERY 12 HOURS FOR 7 DAYS 02/22 completed Not Available Not Available Not Available fentanyl 12 mcg/hr transderm al patch CLOVER 1 PATCH TO SKIN Q 72 H active Not Available Not Available No t Available Euflexxa 10 mg/mL (mw 2.4-3.6 million) intra-art icular syringe Injectio ns given in the office by the doctor 11/18 completed [facility]: [id number] 001 Not Available Not Available Not Available magnesium 01/23 completed Not Available Not Available Not Available Aspir-81 2018 active Not Available Not Available Not Avai lable naltrexon e 4 mg take 1 cap by mouth every morning 01/23 completed Not Available Not Available Not Available Nature-Th roid 01/23 completed t3. Endo [employer]. Not Available Not Available Not Available B-12 09/23 completed Not Available Not Available Not Available Ranexa 500 mg tablet,ex tended release TK 1 T PO Q 12 H 04/10 completed Not Available Not Available Not Available Durezol 0.05 % eye drops active Not Available Not Available No t Available GaviLyte- G 236 gram-22.7 4 gram-6.74 gram-5.86 gram oral solution DRINK 1 8OZ GLASS EVERY 20-30MIN UNTILL FINISHED 09/23 completed Not Available Not Available Not Available Nucynta 50 mg tablet active Not Available Not Available Not Available Brilinta 90 mg tablet Take 1 tablet twice a day by oral route for 30 days. 01/[address] Asia worthington es Not Available Not Available Not Available Linzess 145 mcg capsule 01/23 completed Not Available Not Available Not Available Ilevro 0.3 % eye drops,lorin pension active Not Available Not Available Not Available Afluria 1917-2794 (PF) 45 mcg (15 mcg x 3)/0.5 mL intramusc ular syringe TO BE ADMINIST ERED BY PHARMACI ST FOR IMMUNIZA TION active Not Available Not Available No t Available Afluria 7263-7610 (PF) 45 mcg (15 mcg x 3)/0.5 mL IM syringe TO BE ADMINIST ERED BY PHARMACI ST FOR IMMUNIZA TION active Not Available Not Available No t Available Flucelvax Quad 0530-8099 (PF) 60 mcg (15 mcg x 4)/0.5 mL IM syringe TO BE ADMINIST ERED BY PHARMACI ST FOR IMMUNIZA TION active Not Available Not Available No t Available Fluvirin 2396-2270 45 mcg (15 mcg x 3)/0.5 mL intramusc ular suspensio n active Not Available Not Available Not Available Fluzone High-Dose (PF) 180 mcg/0.5 mL intramusc ular syringe TO BE ADMINIST ERED BY PHARMACI ST FOR IMMUNIZA TION 01/23 completed Not Available Not Available Not Available Fluzone High-Dose Quad (PF) 240 mcg/0.7 mL IM syringe PHARMACY ADMINIST ERED 05/19 completed Not Available Not Available Not Available naltrexon e 4.5 mg capsule Take 1 capsule every day by oral route. active Not Available Not Available No t Available Vitals Date Recorded Body height Body mass index (BMI) Body weight Provider Name and Address Organization Details Last Updated DateTime 06/15/2022 154.94 cm 21.4 kg/m2 95483.94 g Catalina Snatos MA [facility] 06/15/2022 16:08:30 Date Recorded Body height Body mass index (BMI) Body weight Body temperature Heart rate Oxygen saturation Oxygen saturation in Arterial blood by Pulse oximetry Systolic blood pressure Diastolic blood pressure Provider Name and Address Organization Details Last Updated DateTime 3 154.94 cm 21.4 kg/m2 42728.9 4 g 97.2 [degF] 67 /min 98 % 98 % 122 mm[Hg] 80 mm[Hg] REINIER Corona [facility] 14:19:17 Date Recorded Body height Body mass index (BMI) Body weight Body temperature Heart rate Oxygen saturation Oxygen saturation in Arterial blood by Pulse oximetry Respiratory rate Pain severity - 0-10 verbal numeric rating [Score] - Reported Systolic blood pressure Diastolic blood pressure Provider Name and Address Organization Details Last Updated DateTime 154.94 cm 18.6 kg/m2 77975.8 g 95.9 [degF] 53 /min 94 % 94 % 16 /min 4 180 mm[Hg] 88 mm[Hg] Angela Gleason RN [facility] 10:28:50 Date Recorded Systolic blood pressure Diastolic blood pressure Provider Name and Address Organization Details Last Updated DateTime 09/23/2022 140 mm[Hg] 92 mm[Hg] Angela Antonio NP [address] [place] [address], [address], [facility] 09/23/2022 10:52:47 Date Recorded Body height Provider Name an d Address Organization Details Last Updated DateTime 11/02/2022 154.94 cm REINIER Corona [facility] 11/02/2022 12:54:45 Date Recorded Body height Body mass index (BMI) Body weight Body temperature Heart rate Respiratory rate Oxygen saturation Oxygen saturation in Arterial blood by Pulse oximetry Pain severity - 0-10 verbal numeric rating [Score] - Reported Systolic blood pressure Diastolic blood pressure Provider Name and Address Organization Details Last Updated DateTime 3 154.94 cm 18.4 kg/m2 51375.5 1 g 96.9 [degF] 55 /min 20 /min 99 % 99 % 8 140 mm[Hg] 78 mm[Hg] Angela Gleason RN [facility] [employer] [facility] 15:14:39 Social History Question Answer Notes LastModified by Organizat ion Details LastModified Time Tobacco Smoking Status Never Smoker Rosanne calderón, [facility] [employer] [facility] 02/08/2023 15:06:29 Do You Have An Advance Directive? No Information not available 09/23/2022 Are You Blind Or Do You Have Difficulty Seeing? No [email or web address] Information not available 02/08/2023 Is Blood Transfusion Acceptable In An Emergency? Yes [email or web address] Information not available 02/08/2023 What Is Your Code Status? Full Code [email or web address] Information not available 02/08/2023 In The 14 Days Before Symptom Onset, Have You Had Close Contact With A Laboratory-confir med COVID-19 While That Case Was Ill? No [email or web address] Information not available 02/08/2023 In The 14 Days Before Symptom Onset, Have You Had Close Contact With A Person Who Is Under Investigation For COVID-19 While That Person Was Ill? No [email or web address] Information not available 02/08/2023 Are You Deaf Or Do You Have Serious Difficulty Hearing? No [email or web address] Information not available 02/08/2023 What Is Your Occupation? Retired [email or web address] Information not available 02/08/2023 Have There Been Any Changes To Your Family Or Social Situation? No [email or web address] Information no t available 02/08/2023 Are There Any Guns Present In Your Home? No [email or web address] Information not available 02/08/2023 Do You Use Insect Repellent Routinely? Yes [email or web address] Information not available 02/08/2023 Where Do You Live? SingleLevelHouse [email or web address] Information not available 02/08/2023 Do You Have A Medical Power Of Milk Drier? No [email or web address] Information not available 02/08/2023 Do You Have Any Pets? No [email or web address] Information not available 02/08/2023 What Is Your Relationship Status? Information not available 09/23/2022 Do You Use Your Seat Belt Or Car Seat Routinely? Yes [email or web address] Information not available 02/08/2023 Are You Passively Exposed To Smoke? Yes [email or web address] Information no t available 02/08/2023 Do You Participate In Social Media? No [email or web address] Information not available 02/08/2023 Do You Feel Stressed (tense, Restless, Nervous, Or Anxious, Or Unable To Sleep At Night)? [id number] Information not available 02/08/2023 Do You Use Sunscreen Routinely? Yes [email or web address] Information not available 02/08/2023 Have You Recently Traveled Abroad? No [email or web address] Information not available 02/08/2023 Sex: Unknown Functional Status Question Answer Note LastModified by Organizat ion Details LastModified Time Do you have difficulty walking or climbing stairs? Yes [email or web address] Information not available 02/08/2023 Do you have transportation difficulties? No Information not available 02/08/2023 Are you able to walk? YESWOREST [email or web address] Information not available 02/08/2023 Do you have difficulty doing errands alone? Yes [email or web address] Information not available 02/08/2023 Are you able to care for yourself? Yes [email or web address] Information not available 02/08/2023 Do you have difficulty dressing or bathing? No [email or web address] Information not available 02/08/2023 What is your exercise level? None Information not available 09/23/2022 Mental Status Question Answer Note LastModified by Organization D etails LastModified Time Do you have difficulty concentrating, remembering or making decisions? No [email or web address] Information no t available 02/08/2023 Family History Relationship Description Onset Age of this Age Resolved Age Notes LastModified by Organization Details LastModified Time Unspecified Relation Myocardial infarction [id number] Not available 04/20/2022 06:40:52 Unspecified Relation Malignant tumor of lung [email or web address] Not available 02/08 15:06:28 Unspecified Relation Malignant tumor of kidney [email or web address] Not available 02/08 15:06:28 Unspecified Relation Stented artery [email or web address] Not available 02/08 15:06:28 Notes:history of family smok ers Medical History Condition Response BLINDNESS N RHEUMATIC FEVER N KIDNEY STONES N BLADDER PROBLEMS N MRSA N OTHER # 1 Y POLIO N LUNG DISEASE/DISORDER N RADIATION / CHEMOTHERAPY N COPD N Other # 2 N BLOOD DISEASES N SURGERY N EAR OR HEARING PROBLEMS N MUMPS N FEMALE PROBLEMS / INFECTIONS N DEPRESSION (INCLUDING POST ) Y BOWEL PROBLEMS N STROKE/TIA N THYROID DISEASE N ULCERS N BENIGN PROSTATIC HYPERPLASIA N MEASLES N CERVICALGIA N TB SKIN TEST N MYOCARDIAL INFARCTION N PARAPELGIA N OBESITY N GERD/NAUSEA N ANEURYSM N URINARY/BLADDER/KIDNEY PROBLEMS N CORONARY ARTERY DISEASE (CAD) N MENIERE'S DISEASE N ADDICTION CONCERNS N ENDOMETRIOSIS N USE OF BLOOD THINNERS N SKIN PROBLEMS N EMPHYSEMA N GASTROINTESTINAL DISORDER N MUSCLE,JOINT OR BONE PROBLEMS N GASTROINTESTINAL BLEEDING N BLOOD CLOTS N ASTHMA N CATARACTS N ERECTILE DYSFUNCTION N GI PROBLEMS N CHF N Low Testosterone N NEUROPATHY N INFERTILITY N AIDS/HIV N FRACTURES N CHEMOTHERAPY / RADIATION N VISION/EYE PROBLEMS N LIVER DISEASE N MALE HYPOGONADISM N HYPERTENSION Y ANXIETY DISORDER N BLOOD TRANSFUSION N ANEMIA/BLOOD DISORDER N CHRONIC EAR INFECTIONS N BRONCHITIS N TUBERCULOSIS N GLAUCOMA N FOOT PROBLEM N DIVERTICULITIS N SLEEP APNEA N CHICKENPOX N ALLERGIES/HAYFEVER N INFECTIOUS DISEASE N PROSTATE N HEART ARRHYTHMIA N INSOMNIA N HIGH CHOLESTEROL / HYPERLIPIDEMIA N HYPERTHYROIDISM N EYE PROBLEMS N EATING DISORDER N NEUROLOGICAL PROBLEMS N EDEMA N CHRONIC PAIN SYNDROME N HYPOTHYROIDISM N CONSTIPATION N CAROTID BLOCKAGE N BACK / NECK PROBLEMS N HAVE YOU BEEN HOSPITALIZED OR SEEN IN [facility] IN THE PAST YEAR ? N ATHEROSCLEROSIS N BREAST PROBLEMS N DIALYSIS N ECZEMA N FIBROMYALGIA N OSTEOPOROSIS N ARTHRITIS N NO SIGNIFICANT PAST MEDICAL HISTORY N APPENDICITIS N DIABETES, TYPE N BAD TEETH N HEARTBURN / REFLUX N ADD/ADHD N AUTISM SPECTRUM DISORDER (ASD) N HEPATITIS / LIVER DISEASE N PULMONARY DISEASE N GOUT N SLEEP DISORDER N ALZHEIMER'S DISEASE N PAIN N HERPES N DEMENTIA N SEIZURES/EPILEPSY N HEADACHES/MIGRAINES N VASCULAR DISEASE N PACEMAKER N DIZZINESS N KIDNEY DISEASE N HEART DISEASE/HEART PROBLEMS N SCARLET FEVER N MULTIPLE SCLEROSIS N MENTAL DISORDER/ILLNESS N DEVELOPMENTAL OR BEHAVIORAL DISORDERS N CARDIAC ARRHYTHMIA N CANCER: SPECIFY N PNEUMONIA N Gall Stones N ATRIAL FIBRILLATION N PULMONARY EMBOLISM N AUTOIMMUNE DISEASE N Gynecological History Statement/Question Response Date of Last Mammogram 08/09/2021 Most Recent Bone Density 07/07/2020 Obstetrics History GPAL:G 0 P 0 0 0 0 Immunizations Vaccine Type Date Status Note Provider Nam e and Address Organization Details Recorded Time influenza, unspecified formulation 3 completed Angela Gleason RN null, [facility] 02/08/2023 15:11:37 SARS-COV-2 (COVID-19) vaccine, UNSPECIFIED 1 completed Angela Gleason RN null, [facility] 02/08/2023 15:11:37 SARS-COV-2 (COVID-19) vaccine, UNSPECIFIED 1 completed Angela Gleason RN null, [facility] 02/08/2023 15:11:37 Influenza, split virus, trivalent, preservative 6 completed Angela Gleason RN null, [facility] 02/08/2023 15:11:37 Influenza, high-dose, quadrivalent, PF 9 completed Angela Gleason RN null, [facility] 02/08/2023 15:11:37 Influenza, split virus, quadrivalent, preservative 7 completed Angela Gleason RN null, [facility] 02/08/2023 15:11:37 Influenza, split virus, trivalent, preservative 5 completed Angela Gleason RN null, [facility] 02/08/2023 15:11:37 Influenza, split virus, trivalent, PF 4 completed Angela Gleason RN null, [facility] 02/08/2023 15:11:37 Influenza, split virus, trivalent, preservative 3 completed Angela Gleason RN null, [facility] 02/08/2023 15:11:37 Influenza, high-dose, quadrivalent, PF 1 completed Angela Gleason RN null, [facility] 02/08/2023 15:11:37 pneumococcal polysaccharide PPV23 0 completed JAX Metz, [facility] 02/08/2023 15:11:37 Influenza, split virus, quadrivalent, PF 8 completed Angela Gleason RN null, [facility] 02/08/2023 15:11:37 Tdap 8 completed Angela Gleason RN null, [facility] 02/08/2023 15:11:37 Pneumococcal conjugate PCV 13 5 completed Angela Gleason RN null, [facility] 02/08/2023 15:11:37 zoster live 3 completed Angela Gleason RN null, [facility] 02/08/2023 15:11:37 Past Encounters Encounter ID Performer Location Encounter Start Date Encounter Closed Date Diagnosis/Indication Diagnosis SNOMED-CT Code Diagnosis ICD10 Code Diagnosis Note [id number] [address] [address] 05/19/2020 00:00:00 05/19/2020 17:18:[id number] [address] 1 11/18/2020 00:00:00 11/18/2020 18:02:[id number] [address] 1 08/06/2021 00:00:00 08/06/2021 10:52:[id number] [address] 1 01/11/2022 00:00:00 01/12/2022 07:41:[id number] [address] 1 01/27/2022 00:00:00 01/27/2022 10:29:[id number] [address] 1 02/22/2022 00:00:00 02/22/2022 16:14:52 [id number] Mamie Syed MD [facility] General Surgery [address] [facility], [address] [address] 06/15/2022 15:25:44 07/20/2022 13:49:53 Colitis 67419014 K52.9 EOSINOPHIL LIC [id number] Mamie ySed MD [facility] General Surgery [address] [facility] [address] [address] 09/21/2022 14:17:32 09/21/2022 14:57:49 Colitis 42699686 K52.9 EOSINOPHIL LIC [id number] Angela Antonio NP [address] [address] 1 09/23/2022 09:57:55 09/23/2022 11:14:12 Anxiety 89647630 F41.9 Lorazepam prn. Screening for malignant neoplasm of breast 663494025 Z12.39 mammogram 07/2021. New order given 09/2022 Colitis 84762155 K52.9 Seeing GI, started on azathiopri ne 50 mg po daily. 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 Colon biopsies showed eosinophil ic colitis. Has been on azathiopri ne 50 mg po daily, prednisone , and famotidine without relief of symptoms. Patient has been on Advil twice weekly on average. Not sure NSAIDs are contributo ry. Pt to seek alternate GI for additional options. Dr. Syed did refer to Gi in [facility], but apt not avail until Oct 2023. Pt states she doesn't need referral and will check appt with [facility]. Constipation [id number] K5 9.00 Miralax bid for 10 days. If symptoms better, then will consider Linzess or trulance option. May have some IBS constipati on issues. Health Concerns Section Related Observation LastModified by Organization Detai ls LastModified Time None Recorded Concern Status LastModified by Organization Details LastModified Time None Recorded Advance Directives Directive N: Payers Encounter Date Sequence Insurance Name Policy Number Policy Rizzo Covered Member ID Rizzo Member ID Guarantor Name 06/15/2022 1 [place] Lorrie Eubanks [id number] Lorrie Eubanks 06/15/2022 2 [employer] (MEDICARE SUPPLEMENT) Lorrie Eubanks [id number] Lorrie Eubanks 09/21/2022 1 [place] Lorrie Eubanks [id number] Lorrie Eubanks 09/21/2022 2 [employer] (MEDICARE SUPPLEMENT) Lorrie Eubanks [id number] Lorrie Eubanks 09/23/2022 1 [place] Lorrie Eubanks [id number] Lorrie Eubanks 09/23/2022 2 [employer] (MEDICARE SUPPLEMENT) Lorrie Eubanks [id number] Lorrie Eubanks 11/02/2022 1 [place] Lorrie Eubanks [id number] Lorrie Eubanks 11/02/2022 2 [employer] (MEDICARE SUPPLEMENT) Lorrie Eubanks [id number] Lorrie Eubanks 02/08/2023 1 [place] Lorrie Eubanks [id number] Lorrie Eubanks 02/08/2023 2 [employer] (MEDICARE SUPPLEMENT) Lorrie Eubanks [id number] Lorrie Eubanks Notes Date Note Type Note Provider Name and Address Organization Details Recorded Time 06/15/2022 text/html LORRIE WAS INTERVIEWED VIA TELEPHONIS PROTOCOL . PT HAS EOSINOPHILLIC COLITIS . PT IS HAVING ABD PAIN . SHE IS S/P PREDNISONE TAPER. THIS DID NOT HELP . Mamie Syed MD [address] [place] [address], [place] [address], [place], [address], [facility] [employer] 06/15/2022 16:46:24 09/21/2022 text/html OLRRIE WAS SEEN I N THE OFFICE TODAY FOR A F/U. PT HAS PARKINSONS DZ . SHE IS SC/O CHRONIC ABD PAIN . PT IS S/P COLONOSCOPY WITH BX. PATHOLOGY WAS C/W EOSINOPHILLIC COLITIS . PT WAS RXED A TAPER OF PREDNISONE . SHE REPORTS THAT THIS DID NOT HELP . SHE TRIED TUMS . SHE C/O NAUSEA . Mamie Syed MD [address], [address], [place], [address], [facility] [employer] [facility] 10/05/2022 16:56:25 09/23/2022 text/html Here for stomach issues. Lost weight she had just tried so hard to gain. Pepcid and tums doesn't help anything. was on steroids for 56 days straight. Didn't do anything. Was told to avoid wheat, milk, nuts, fish, eggs. No relief.Was back in to GI office yesterday and was started on azathioprine 50 mg po daily.No blood in stool.Having formed bowel movements. BP high today from nerves. No chest pain.Needing refill on lorazepam- using prn. Parkinsons the same. Dizzy at times from the medication, but stays hydrated with water. Angela Antonio NP [address], [address], [place], [address], [facility] [employer] [facility] 09/23/2022 11:09:13 11/02/2022 text/html LORRIE WAS INTERV IEW VIA TELEPHONIC PROTOCOL . PT HAS EOSINOPHILLIC COLITIS . SHE FAILED PREDNISONE/AZATHIOP RINE . PT IS C/O ABD ACHE PAIN AND THROAT DISCOMFORT . SX DID NOT IMPROVE WITH THESE MEDS . Mamie Syed MD [address], [facility] [address], [place], [address], [facility] [employer] [facility] 11/02/2022 13:10:54 02/08/2023 text/html Here for check u p. Stomach issues started in Mar 2022. Had US and CT scan. Went to GI and did colonoscopy, no biopsy done. Started on steroids for 56 days. Another med. No relief. Now on another medication and was referred to provider in [place]. They can't get her in until Oct.Dr. Syed diagnosed pt with colitis. Has pain all the time. Denies known triggers. No diarrhea since symptoms started. More constipation if anything- has bm every 2-3 days. Angela Antonio NP [address] [facility], [address], [place], [address], [facility] 02/08/2023 15:51:34 OBGyn Episode No OBEpisode recorded.
--- OUTSIDE RECORDS SUMMARY | 2024-04-06 06:54 | XMS_ITS | Encounter Summary ---
Author Organization 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
== END 2024-04-06 06:48 | disposition home or self-care (01) ==
LOC: ANHLAB 06:52
PROVIDERS: PCP Nurse Practitioner Family; Visit Provider Nurse Practitioner Family
DX: E03.9 Hypothyroidism, unspecified (principal)
CPT/HCPCS: 36415; 84443